=== PATIENT | female | born 1955 | race Caucasian/White ===

== ENCOUNTER 2016-03-17 03:46 | Emergency (ER) | payer MEDICAID ==
[~2016-03-17] VITALS: Ht 165.1 cm; Wt 84.4 kg
--- NOTE | 2016-03-17 04:12 | Emergency Room Report ---
History of Present Illness General Chief Complaint: Upper Respiratory Illness Source: Patient, Medical Record (OZ SRINIVASAN M.D.) Present Illness HPI This is a 60-year-old female coming from residential. She's been complaining of a nonproductive cough for the last 2 weeks. An x-ray done yesterday which show mild atelectasis and possible pneumonia. Was sent here to be evaluated. Patient has no fever or chills. No nausea no vomiting. No chest pain. Nothing made it better. Nothing made it worse. No other complaint. (OZ SRINIVASAN M.D.) Allergies: Coded Allergies: PENICILLINS (Verified Allergy, Unknown, 03/17/16) Patient History Past Medical History: see triage record, old chart reviewed Past Surgical History: other Pertinent Family History: none, other Social History: Denies: smoking Now: No Immunizations: other Reviewed Nursing Documentation: PMH: Agreed, PSxH: Agreed (OZ SRINIVASAN M.D.) Nursing Documentation-PMH Hx Cardiac Problems: Yes - HIGH CHOLESTEROL Hx Hypertension: Yes History Of Psychiatric Problem: Yes - BIPOLAR Hx Seizures: Yes (OZ SRINIVASAN M.D.) Review of Systems Eye: Denies: blurred vision, eye pain ENT: Denies: ear pain, nose congestion, throat swelling Respiratory: Reports: cough, Denies: shortness of breath Cardiovascular: Denies: chest pain, palpitations Gastrointestinal: Denies: abdominal pain, diarrhea, nausea, vomiting Musculoskeletal: Denies: back pain, joint pain Skin: Denies: rash Neurological: Denies: headache, numbness Endocrine: Denies: increased thirst, increased urine Hematologic/Lymphatic: Denies: easy bruising All Other Systems: negative except mentioned in HPI (OZ SRINIVASAN M.D.) Physical Exam Vital Signs Date Time Temp Pulse Resp B/P Pulse Ox O2 Delivery O2 Flow Rate FiO2 03/17/16 03:50 98.1 70 18 163/92 99 Room Air vitals hypertension Sp02 EP Interpretation: reviewed, normal General Appearance: well appearing, no apparent distress, alert Head: normocephalic, atraumatic Eyes: bilateral eye EOMI, bilateral eye PERRL ENT: hearing grossly normal, normal pharynx Neck: full range of motion, supple, no meningismus Respiratory: chest non-tender, lungs clear, normal breath sounds Cardiovascular #1: regular rate, rhythm, no murmur Gastrointestinal: normal bowel sounds, non tender, no mass, no organomegaly, no bruit, non-distended Musculoskeletal: back normal, normal range of motion Neurologic: alert, oriented x3 Psychiatric: mood/affect normal Skin: warm/dry (OZ SRINIVASAN M.D.) Medical Decision Making Diagnostic Impression: Primary Impression: Cough Additional Impressions: Obesity (BMI 30.0-34.9) Renal insufficiency ER Course Patient presents with a cough and abnormal chest x-ray finding. According to the reading from the radiologist, she has atelectasis questionable infiltrate in the left lower lobe. CT scan is still pending. If negative will discharge back to residential. I see no evidence of pneumonia, ACS, PE, dissection to name a few. Lab Results Impression labs unremarkable (OZ SRINIVASAN M.D.) ER Course Received signout from Dr Srinivasan to followup CT Chest, which also does NOT demonstrate significant airspace disease. No PNA. No pleural effusions. I reviewed chart - vitals have been stable. No leukocytosis. Mild cough, likely URI Recommend supportive tx at SNF and PMD followup Dr Payne called after patient was discharged back to SNF with the following incidental findings: T10 compression fx, unknown acuity; and ?pulm nodules that may need followup. I communicated these results to Dr Pino, patient's PMD at 912am (SANJAY DORAN M.D.) EKG Diagnostic Results Rate: normal Rhythm: NSR ST Segments: no acute changes (OZ SRINIVASAN M.D.) Rhythm Strip Diag. Results EP Interpretation: yes Rate: 80 Rhythm: NSR, no PVC's, no ectopy (OZ SRINIVASAN M.D.) Chest X-Ray Diagnostic Results EP Interpretation: Yes Findings: no consolidation, no effusion, no pneumothorax, no acute cardiopulmonary disease Number of Views: 1 (OZ SRINIVASAN M.D.) CT/MRI/US Diagnostic Results CT/MRI/US Diagnostic Results : Imaging Test Ordered: CT chest Impression Read by radiologist as NAD. Atelectasis of left lungs. (OZ SRINIVASAN M.D.) Last Vital Signs Date Time Temp Pulse Resp B/P Pulse Ox O2 Delivery O2 Flow Rate FiO2 03/17/16 03:50 98.1 70 18 163/92 99 Room Air Status: improved (OZ SRINIVASAN M.D.) Status: improved (SANJAY DORAN M.D.) Disposition: [facility] SNF Condition: Stable Referrals: DEBBIE PINO (PCP) Patient Instructions: Upper Respiratory Infection, Adult OZ SRINIVASAN M.D. Mar 17, 2016 04:12 SANJAY DORAN M.D. Mar 17, 2016 06:44
[2016-03-17] MEDS ORDERED: ASPIRIN81 MG ORAL (04:31)
[2016-03-17] MEDS ORDERED: IBUPROFEN600 MG ORAL ×2 (04:31)
[2016-03-17] MEDS ORDERED: PROZAC40 MG ORAL (04:31)
[2016-03-17] MEDS ORDERED: VITAMIN D1000 UNI1 ORAL (04:31)
[2016-03-17] MEDS ORDERED: ABILIFY20 MG ORAL (04:31)
[2016-03-17] MEDS ORDERED: GABAPENTIN100 MG ORAL (04:31)
[2016-03-17] MEDS ORDERED: MULTIVITAMINS1 EAC8 ORAL (04:31)
[2016-03-17] MEDS ORDERED: TAMSULOSIN HCL0.4 MG ORAL (04:31)
[2016-03-17] MEDS ORDERED: CATAPRES0.1 MG ORAL (04:31)
[2016-03-17] MEDS ORDERED: ATORVASTATIN CA10 MG ORAL (04:31)
[2016-03-17] MEDS ORDERED: TRICOR54 MG ORAL (04:31)
[2016-03-17] MEDS ORDERED: BENADRYL25 MG ORAL (04:35)
[2016-03-17] MEDS ORDERED: DIVALPROEX SOD500 M2 PO (04:35)
[2016-03-17] MEDS ORDERED: NITROGLYCERIN0.4 MG SL (04:35)
[2016-03-17] MEDS ORDERED: HYDROCODON-ACE1 EA15 ORAL (04:35)
[2016-03-17] MEDS ORDERED: BACLOFEN10 MG ORAL (04:35)
[2016-03-17 04:39] LABS: LYMPHOCYTES % (AUTO) 39.4 % (20.0-45.0); MEAN CORPUSCULAR HEMOGLOBIN 33.4 PG (27.0-31.0); MEAN CORPUSCULAR HGB CONC 34.3 G/DL (32.0-36.0); MEAN CORPUSCULAR VOLUME 97 FL (80-99); MEAN PLATELET VOLUME 6.7 FL (6.5-10.1); MONOCYTES % (AUTO) 10.5 % (1.0-10.0); NEUTROPHILS % (AUTO) 46.1 % (45.0-75.0); PLATELET COUNT 160 K/UL (150-450); RED BLOOD COUNT 4.38 M/UL (4.20-5.40); RED CELL DISTRIBUTION WIDTH 11.2 % (11.6-14.8)
[2016-03-17] MEDS ORDERED: Acetaminophen 500mg (ES) tab ORAL ONE (04:45)
[2016-03-17 04:58] LABS: ALBUMIN/GLOBULIN RATIO 1.4 (1.0-2.7); CALCIUM 9.6 mg/dL (8.6-10.2); CREATININE 1.5 mg/dL (0.5-0.9); GLOMERULAR FILTRATION RATE 35.2 mL/min (>60); POTASSIUM 4.8 mEQ/L (3.4-4.9); TOTAL PROTEIN 6.5 g/dL (6.6-8.7)
[2016-03-17 05:10] VITALS: BP 165/77
[2016-03-17 05:17] LABS: TROPONIN I < 0.30 ng/mL (<=0.30)
[2016-03-17 06:43] VITALS: BP 169/74
[2016-03-17 08:15] VITALS: BP 147/94
[2016-03-17 08:20] VITALS: BP 147/94
--- NOTE | 2016-03-17 09:24 | Diagnostic Imaging Report ---
ndication: SOB, chest discomfort Technique: IV administration nonionic contrast. Spiral acquisitions obtained from the lung bases to the lung apices. Multiplanar and 3-D reconstructions were generated. Total dose length product 1269 mGycm. CTDIvol(s) 12, 12, 38 mGy Comparison: None Findings: Pulmonary arterial opacification is adequate although not optimal. No filling defects or other findings to suggest acute pulmonary embolus are demonstrated. The thoracic aorta is well opacified, and there is no evidence of thoracic aortic aneurysm or dissection. No pulmonary arterial dilatation. There is no evidence of right ventricular dilatation. There is mild left ventricular muscular hypertrophy, and the heart is mildly enlarged. Right lung is clear except for a few scattered areas of focal pleural thickening and some dependent atelectasis within the costophrenic angle. Is a 2 mm noncalcified peripheral nodule in the right middle lobe, image 48 series 8, which measures 2 mm diameter. The left lung demonstrates some scarring or atelectasis in the posterior upper lobe as well as inferiorly. Some focal in the left costophrenic sulcus, there is a pleural-based opacity which likely represents some scarring or atelectasis. There is also some linear scarring or atelectasis. There is a small dural based noncalcified nodule in the anterior left lower lobe adjacent to the major fissure which measures 3 mm in, image 45 of series 8. There is also a 4 mm nodule medially in the superior segment of the left lower lobe, image 34 of series 8. No infiltrates or masses. There is a small amount of pericardial thickening or fluid anteriorly. No mediastinal or hilar mass or adenopathy. Opacities to the right of the trachea may reflect leelee calcifications or reflux contrast in the azygos vein. The visualized portions of the thyroid thyroid demonstrates multiple subcentimeter low-attenuation nodules. No axillary or chest wall mass or adenopathy the esophagus is unremarkable. Graft the included upper abdominal anatomy is unremarkable There is a compression fracture deformity of the T10 vertebral body, resulting in approximately 40% height loss anteriorly. Impression: No findings to suggest acute pulmonary embolus Scattered parenchymal opacities, as described, most likely representing areas of scarring and/or atelectasis Cardiomegaly with mild left ventricular muscular hypertrophy Small anterior wall pericardial effusion versus fluid Bilateral subcentimeter thyroid nodules. No further followup necessary The above findings are in agreement with the preliminary interpretation provided overnight by [facility] teleradiology service Scattered tiny nodular parenchymal opacities. If there is no significant smoking history or other risk factors for lung carcinoma, no further followup is necessary. If there is significant smoking history, then short interval followup in 6 months to one year is recommended Age indeterminate T10 compression fracture deformity. Consider MRI for better characterization if this is considered clinically relevant The above 2 findings were not described on the preliminary report, but were discussed by phone with Dr. Aponte in the emergency room at time of interpretation. These were also reported to [facility] via their website The CT scanner at [facility] is accredited by the [employer] and the scans are performed using protocols designed to limit radiation exposure to as low as reasonably achievable to attain images of sufficient resolution adequate for diagnostic evaluation.
--- NOTE | 2016-03-18 10:03 | Cardiology Report ---
APPROVED REPORT EKG Measurement Heart [id number] AL [id number] Normal sinus rhythm Normal ECG
--- NOTE | 2016-03-24 12:58 | Diagnostic Imaging Report ---
Indication: SOB Technique: One view of the chest Comparison: none Findings: The left lateral hemidiaphragm is obscured. Subsequent chest CT shows that this is due to prominent pericardial fat and not due to pleural fluid. The lungs and pleural spaces are otherwise clear. Heart size is borderline enlarged. Impression: No definite acute process-see above
== END 2016-03-17 08:25 ==
LOC: EDBD 03:46 → EMR 04:09
DX: R05 Cough (principal); N28.9 Disorder of kidney and ureter, unspecified; E66.9 Obesity, unspecified; Z68.34 Body mass index [BMI] 34.0-34.9, adult; Z88.0 Allergy status to penicillin; E78.00 Pure hypercholesterolemia, unspecified; I10 Essential (primary) hypertension; Z86.59 Personal history of other mental and behavioral disorders
CPT/HCPCS: 36415; 71010; 71275; 80053; 83605; 83880; 84484; 85025; 87040; 93005; 99284; Q9967

== ENCOUNTER 2017-10-27 23:43 | Emergency (ER) | payer MEDICAID ==
[~2017-10-27] VITALS: Ht 165.1 cm; Wt 82.1 kg
[~2017-10-27 23:43] MED LIST: ABILIFY20 MG ORAL; ASPIRIN81 MG ORAL; ATORVASTATIN CA10 MG ORAL; BACLOFEN10 MG ORAL; BENADRYL25 MG ORAL; CATAPRES0.1 MG ORAL; DIVALPROEX SOD500 M2 PO; GABAPENTIN100 MG ORAL; HYDROCODON-ACE1 EA15 ORAL; IBUPROFEN600 MG ORAL; MULTIVITAMINS1 EAC8 ORAL; NITROGLYCERIN0.4 MG SL; PROZAC40 MG ORAL; TAMSULOSIN HCL0.4 MG ORAL; TRICOR54 MG ORAL; VITAMIN D1000 UNI1 ORAL
--- NOTE | 2017-10-28 | Emergency Room Report ---
History of Present Illness General Chief Complaint: General Complaint Source: Patient, Medical Record, EMS Present Illness HPI This is a 62-year-old female with multiple medical problem. She has a history of CVA with left-sided weakness. She lives in a detention. She was sent in with chief complaint of increased agitation and anxiety for last few days. Patient denies any complaint. She said she had some nausea and vomiting prior to arrival. No fever chills. No abdominal pain. No urinary complaint. Denies feeling anxious. Allergies: Coded Allergies: PENICILLINS (Verified Allergy, Unknown, 03/17/16) Patient History Past Medical History: see triage record, old chart reviewed Past Surgical History: other Pertinent Family History: none Social History: Denies: smoking Now: No Immunizations: other Reviewed Nursing Documentation: PMH: Agreed; PSxH: Agreed Nursing Documentation-PMH Hx Cardiac Problems: Yes - HIGH CHOLESTEROL Hx Hypertension: Yes Hx COPD: Yes Hx Gastrointestinal Problems: Yes - GERD History Of Psychiatric Problem: Yes - MAJOR DEPRESSIVE DISORDER,BIPOLAR Hx Seizures: Yes Review of Systems Eye: Denies: eye pain, blurred vision ENT: Denies: ear pain, nose congestion, throat swelling Respiratory: Denies: cough, shortness of breath Cardiovascular: Denies: chest pain, palpitations Gastrointestinal: Denies: abdominal pain, diarrhea, nausea, vomiting Musculoskeletal: Denies: back pain, joint pain Skin: Denies: rash Neurological: Denies: headache, numbness Endocrine: Denies: increased thirst, increased urine Hematologic/Lymphatic: Denies: easy bruising All Other Systems: negative except mentioned in HPI Physical Exam Vital Signs Date Time Temp Pulse Resp B/P (MAP) Pulse Ox O2 Delivery O2 Flow Rate FiO2 10/27/17 23:44 98.0 66 18 132/84 93 Room Air 98.1 vitals normal Sp02 EP Interpretation: reviewed, normal General Appearance: well appearing, no apparent distress, alert Head: normocephalic, atraumatic Eyes: bilateral eye PERRL, bilateral eye EOMI ENT: hearing grossly normal, normal pharynx Neck: full range of motion, supple, no meningismus Respiratory: chest non-tender, lungs clear, normal breath sounds Cardiovascular #1: regular rate, rhythm, no murmur Gastrointestinal: normal bowel sounds, non tender, no mass, no organomegaly, no bruit, non-distended Musculoskeletal: back normal Neurologic: alert, oriented x3, other - Left-sided weakness Psychiatric: mood/affect normal Skin: warm/dry Medical Decision Making Diagnostic Impression: Primary Impression: UTI (urinary tract infection) Qualified Codes: N30.00 - Acute cystitis without hematuria Additional Impression: VONNIE (acute kidney injury) ER Course Patient presents with agitation at the detention. She is calm here. May be secondary to sundowning secondary to infection. No evidence of polynephritis. No evidence of any sepsis. Antibiotics given. Creatinine bumped since 2014. Unknown baseline in between. We'll discharge home. Lab Results Impression labs with elevated creatinine Last Vital Signs Date Time Temp Pulse Resp B/P (MAP) Pulse Ox O2 Delivery O2 Flow Rate FiO2 10/27/17 23:44 98.0 66 18 132/84 93 Room Air 98.1 Status: improved Disposition: XFER SNF Condition: Stable Scripts Cephalexin* (KEFLEX*) 500 Mg Capsule 500 MG ORAL TID, #21 CAP Prov: OZ SRINIVASAN M.D. 10/28/17 Additional Instructions: Follow-up with your doctor in 7 days. Return if symptom worsen. OZ SRINIVASAN M.D. Oct 28, 2017 00:00
[2017-10-28 00:10] VITALS: BP 132/84
[2017-10-28 00:59] LABS: BASOPHILS % (AUTO) 0.9 % (0.0-2.0); EOSINOPHILS % (AUTO) 2.3 % (0.0-3.0); HEMATOCRIT 37.1 % (37.0-47.0); HEMOGLOBIN 12.4 G/DL (12.0-16.0); LYMPHOCYTES % (AUTO) 28.9 % (20.0-45.0); MEAN CORPUSCULAR VOLUME 98 FL (80-99); MONOCYTES % (AUTO) 11.1 % (1.0-10.0); NEUTROPHILS % (AUTO) 56.9 % (45.0-75.0); PLATELET COUNT 288 K/UL (150-450); RED BLOOD COUNT 3.78 M/UL (4.20-5.40); RED CELL DISTRIBUTION WIDTH 13.2 % (11.6-14.8); WHITE BLOOD COUNT 6.4 K/UL (4.8-10.8)
[2017-10-28 01:00] LABS: APPEARANCE,URINE SLIGHTLY CLOUDY; BILIRUBIN, URINE NEGATIVE (NEGATIVE); GLUCOSE, URINE (UA) NEGATIVE (NEGATIVE); KETONES,URINE NEGATIVE (NEGATIVE); LEUKOCYTE ESTERASE ,URINE 2+ (NEGATIVE); NITRITE,URINE NEGATIVE (NEGATIVE); PH,URINE 6 (4.5-8.0); PROTEIN,URINE 4+ (NEGATIVE); UROBILINOGEN,URINE NORMAL MG/DL (0.0-1.0)
[2017-10-28 01:03] LABS: COLOR,URINE YELLOW
[2017-10-28 01:23] LABS: ANION GAP 8 mmol/L (5-15); BLOOD UREA NITROGEN 67 mg/dL (7-18); CALCIUM 9.4 MG/DL (8.5-10.1); CARBON DIOXIDE 32 MMOL/L (21-32); CHLORIDE 103 MMOL/L (98-107); CREATININE 2.4 MG/DL (0.55-1.30); POTASSIUM 4.8 MMOL/L (3.5-5.1); SODIUM 143 MMOL/L (136-145)
[2017-10-28 01:29] LABS: ALANINE AMINOTRANSFERASE 21 U/L (12-78); ALBUMIN 3.6 G/DL (3.4-5.0); ALBUMIN/GLOBULIN RATIO 0.8 (1.0-2.7); ALKALINE PHOSPHATASE 64 U/L (46-116); ASPARTATE AMINO TRANSFERASE 14 U/L (15-37); BILIRUBIN,TOTAL 0.4 MG/DL (0.2-1.0)
[2017-10-28 01:30] VITALS: BP 122/44
[2017-10-28] MEDS ORDERED: cefTRIAXone 1 GM in NS 55 ML IVPB ONE (01:30)
[2017-10-28] MEDS ORDERED: CEPHALEXIN500 MG ORAL (01:33)
[2017-10-28 02:30] VITALS: BP 139/51
[2017-10-28] MEDS ORDERED: [UNRECOGNIZED DRUG - OTHER] MC (18:38)
[2017-10-28] MEDS ORDERED: VITAMIN C500 M1 ORAL (18:38)
[2017-10-28] MEDS ORDERED: HYDRALAZINE HCL25 M2 PO (18:38)
[2017-10-28] MEDS ORDERED: FUROSEMIDE40 MG ORAL (18:38)
[2017-10-28] MEDS ORDERED: LIPITOR80 MG ORAL (18:38)
[2017-10-28] MEDS ORDERED: NEURONTIN300 MG ORAL (18:38)
[2017-10-28] MEDS ORDERED: ASPIR 8181 MG ORAL (18:38)
== END 2017-10-28 02:30 ==
LOC: EDBD 23:43 → EMR 23:59
DX: N17.9 Acute kidney failure, unspecified (principal); N39.0 Urinary tract infection, site not specified; E78.00 Pure hypercholesterolemia, unspecified; I10 Essential (primary) hypertension; J44.9 Chronic obstructive pulmonary disease, unspecified; K21.9 Gastro-esophageal reflux disease without esophagitis; F31.9 Bipolar disorder, unspecified
CPT/HCPCS: 36415; 80053; 81001; 85025; 87086; 96361; 96365; 99284; J0696

== ENCOUNTER 2017-10-28 18:38 | Emergency (ER) | payer MEDICAID ==
[~2017-10-28] VITALS: Ht 165.1 cm; Wt 81.6 kg
[~2017-10-28 18:38] MED LIST changes: +ASPIR 8181 MG ORAL; +CEPHALEXIN500 MG ORAL; +FUROSEMIDE40 MG ORAL; +HYDRALAZINE HCL25 M2 PO; +LIPITOR80 MG ORAL; +NEURONTIN300 MG ORAL; +VITAMIN C500 M1 ORAL; +[UNRECOGNIZED DRUG - OTHER] MC
[2017-10-28 19:00] VITALS: BP 128/48
[2017-10-28 19:26] LABS: ANION GAP 5 mmol/L (5-15); BLOOD UREA NITROGEN 56 mg/dL (7-18); CALCIUM 9.6 MG/DL (8.5-10.1); CARBON DIOXIDE 31 MMOL/L (21-32); CHLORIDE 105 MMOL/L (98-107); CREATININE 2.3 MG/DL (0.55-1.30); POTASSIUM 4.6 MMOL/L (3.5-5.1); SODIUM 141 MMOL/L (136-145)
[2017-10-28 19:35] LABS: BASOPHILS % (AUTO) 0.9 % (0.0-2.0); HEMATOCRIT 32.2 % (37.0-47.0); LYMPHOCYTES % (AUTO) 24.2 % (20.0-45.0); MEAN CORPUSCULAR VOLUME 99 FL (80-99); MONOCYTES % (AUTO) 10.5 % (1.0-10.0); NEUTROPHILS % (AUTO) 62.4 % (45.0-75.0); PLATELET COUNT 285 K/UL (150-450); RED BLOOD COUNT 3.27 M/UL (4.20-5.40); RED CELL DISTRIBUTION WIDTH 13.4 % (11.6-14.8); WHITE BLOOD COUNT 5.7 K/UL (4.8-10.8)
[2017-10-28 19:36] LABS: ALANINE AMINOTRANSFERASE 20 U/L (12-78); ALBUMIN 3.3 G/DL (3.4-5.0); ALBUMIN/GLOBULIN RATIO 0.8 (1.0-2.7); ALKALINE PHOSPHATASE 60 U/L (46-116); ASPARTATE AMINO TRANSFERASE 12 U/L (15-37); BILIRUBIN,TOTAL 0.3 MG/DL (0.2-1.0)
--- NOTE | 2017-10-28 19:47 | Emergency Room Report ---
History of Present Illness General Chief Complaint: General Complaint Present Illness HPI Ms. May is a 62-year-old female with history of COPD, chronic kidney disease, dyslipidemia, GERD, bipolar disorder, kidney cancer, peptic ulcer disease presents with cloudy urine in chest congestion. Patient complained of back pain. Reported lethargy. Patient gives limited history. Patient is a resident at [facility] Allergies: Coded Allergies: LEVOFLOXACIN (Unverified Allergy, Unknown, 10/28/17) MEROPENEM (Unverified Allergy, Unknown, 10/28/17) PENICILLINS (Verified Allergy, Unknown, 03/17/16) Patient History Past Medical History: see triage record, old chart reviewed Now: No Reviewed Nursing Documentation: PMH: Agreed; PSxH: Agreed Nursing Documentation-PMH Past Medical History: No History, Except For Hx Hypertension: Yes Hx COPD: Yes Hx Gastrointestinal Problems: Yes - gerd Hx Cerebrovascular Accident: Yes Hx Seizures: Yes Review of Systems Constitutional: Reports: malaise; Denies: fever Gastrointestinal: Denies: abdominal pain All Other Systems: limited - patient provides limited information Physical Exam Vital Signs Date Time Temp Pulse Resp B/P (MAP) Pulse Ox O2 Delivery O2 Flow Rate FiO2 10/28/17 18:30 98.0 68 14 114/62 94 Room Air 98.1 Sp02 EP Interpretation: reviewed, normal General Appearance: non-toxic, moderate distress - +wob abdominal retraction, lethargic, Chronically Ill Head: normocephalic, atraumatic Eyes: bilateral eye normal inspection ENT: hearing grossly normal, no angioedema, normal voice, dry mucus membranes Neck: full range of motion, supple/symm/no masses Respiratory: respiratory distress, decreased breath sounds, accessory muscle use Cardiovascular #1: regular rate, rhythm, no murmur, no rub Gastrointestinal: normal bowel sounds, non tender, soft, non-distended Musculoskeletal: normal range of motion Neurologic: responsive, speech normal Psychiatric: depressed affect Skin: normal color, well hydrated Medical Decision Making Diagnostic Impression: Primary Impression: UTI (urinary tract infection) Additional Impressions: COPD (chronic obstructive pulmonary disease) CKD (chronic kidney disease) HCAP (healthcare-associated pneumonia) ER Course Ms. May presents from SNF with reported UTI and congestion. Does have work of breathing and diminished air movement. However patient refused blood gas and breathing treatment. Admitted in fair condition to Dr. Armstrong's service. IV abx and steroids initated in the ED Laboratory Tests Test 10/28/17 19:00 10/28/17 19:40 White Blood Count 5.7 K/UL (4.8-10.8) Red Blood Count 3.27 M/UL (4.20-5.40) L Hemoglobin 11.0 G/DL (12.0-16.0) L Hematocrit 32.2 % (37.0-47.0) L Mean Corpuscular Volume 99 FL (80-99) Mean Corpuscular Hemoglobin 33.8 PG (27.0-31.0) H Mean Corpuscular Hemoglobin Concent 34.3 G/DL (32.0-36.0) Red Cell Distribution Width 13.4 % (11.6-14.8) Platelet Count 285 K/UL (150-450) Mean Platelet Volume 5.7 FL (6.5-10.1) L Neutrophils (%) (Auto) 62.4 % (45.0-75.0) Lymphocytes (%) (Auto) 24.2 % (20.0-45.0) Monocytes (%) (Auto) 10.5 % (1.0-10.0) H Eosinophils (%) (Auto) 2.0 % (0.0-3.0) Basophils (%) (Auto) 0.9 % (0.0-2.0) Sodium Level 141 MMOL/L (136-145) Potassium Level 4.6 MMOL/L (3.5-5.1) Chloride Level 105 MMOL/L (98-107) Carbon Dioxide Level 31 MMOL/L (21-32) Anion Gap 5 mmol/L (5-15) Blood Urea Nitrogen 56 mg/dL (7-18) H Creatinine 2.3 MG/DL (0.55-1.30) H Estimat Glomerular Filtration Rate 21.4 mL/min (>60) Glucose Level 138 MG/DL (74-106) H Lactic Acid Level 1.20 mmol/L (0.4-2.0) Calcium Level 9.6 MG/DL (8.5-10.1) Total Bilirubin 0.3 MG/DL (0.2-1.0) Aspartate Amino Transf (AST/SGOT) 12 U/L (15-37) L Alanine Aminotransferase (ALT/SGPT) 20 U/L (12-78) Alkaline Phosphatase 60 U/L (46-116) Pro-B-Type Natriuretic Peptide 2526 pg/mL (0-125) H Total Protein 7.5 G/DL (6.4-8.2) Albumin 3.3 G/DL (3.4-5.0) L Globulin 4.2 g/dL Albumin/Globulin Ratio 0.8 (1.0-2.7) L Urine Color Pale yellow Urine Appearance Clear Urine pH 5 (4.5-8.0) Urine Specific [place] 1.010 (1.005-1.035) Urine Protein 3+ (NEGATIVE) H Urine Glucose (UA) Negative (NEGATIVE) Urine Ketones Negative (NEGATIVE) Urine Blood 2+ (NEGATIVE) H Urine Nitrite Negative (NEGATIVE) Urine Bilirubin Negative (NEGATIVE) Urine Urobilinogen Normal MG/DL (0.0-1.0) Urine Leukocyte Esterase 3+ (NEGATIVE) H Urine RBC 5-10 /HPF (0 - 2) H Urine WBC 15-20 /HPF (0 - 2) H Urine Squamous Epithelial Cells Moderate /LPF (NONE/OCC) H Urine Amorphous Sediment Few /LPF (NONE) H Urine Bacteria Many /HPF (NONE) H Lab Results Impression CKD UTI EKG Diagnostic Results EKG Time: 20:20 Rate: normal Rhythm: NSR ST Segments: no acute changes Other Impression normal sinus rhythm normal rate normal axis normal intervals no ST elevation no ST-T signs of ischemiarate 70 beats a minute Last Vital Signs Date Time Temp Pulse Resp B/P (MAP) Pulse Ox O2 Delivery O2 Flow Rate FiO2 10/28/17 19:00 66 25 128/48 97 Room Air 10/28/17 18:30 98.0 98.1 Referrals: NOT CHOSEN IPA/,REFERRING (PCP) Lara Casey MD Oct 28, 2017 19:47
[2017-10-28 19:58] LABS: APPEARANCE,URINE CLEAR; BILIRUBIN, URINE NEGATIVE (NEGATIVE); COLOR,URINE PALE YELLOW; GLUCOSE, URINE (UA) NEGATIVE (NEGATIVE); KETONES,URINE NEGATIVE (NEGATIVE); LEUKOCYTE ESTERASE ,URINE 3+ (NEGATIVE); NITRITE,URINE NEGATIVE (NEGATIVE); PH,URINE 5 (4.5-8.0); PROTEIN,URINE 3+ (NEGATIVE); UROBILINOGEN,URINE NORMAL MG/DL (0.0-1.0)
[2017-10-28] MEDS ORDERED: Albuterol/Ipratropium 3ml neb HHN ONE (20:00)
[2017-10-28 20:48] VITALS: BP 125/64
[2017-10-28] MEDS ORDERED: Azithromycin 500 MG in D5W 275 ML IVPB ONE (21:15)
[2017-10-28] MEDS ORDERED: Aztreonam Inj 2 GM in NS 110 ML IV SCH (22:00)
[2017-10-28 22:34] VITALS: BP 123/65
[2017-10-28 22:40] VITALS: BP 123/65
--- NOTE | 2017-10-31 14:50 | Cardiology Report ---
APPROVED REPORT EKG Measurement Heart [id number] Normal sinus rhythm Normal ECG
== END 2017-10-28 22:40 | disposition short-term general hospital (02) ==
LOC: EDBD 18:38 → EMR 19:02
DX: N39.0 Urinary tract infection, site not specified (principal); I12.9 Hypertensive chronic kidney disease with stage 1 through stage 4 chronic kidney disease, or unspecified chronic kidney disease; N18.9 Chronic kidney disease, unspecified; J44.9 Chronic obstructive pulmonary disease, unspecified; J18.9 Pneumonia, unspecified organism; Y95 Nosocomial condition; K21.9 Gastro-esophageal reflux disease without esophagitis; E78.5 Hyperlipidemia, unspecified; Z85.038 Personal history of other malignant neoplasm of large intestine; Z87.11 Personal history of peptic ulcer disease; F31.9 Bipolar disorder, unspecified
CPT/HCPCS: 36415; 71045; 80053; 81003; 83605; 83880; 85025; 87040; 87081; 87086; 87181; 93005; 96365; 99284; J0456; J7620

== ENCOUNTER 2017-11-06 12:40 | Inpatient (IN) | payer MEDICAID ==
[~2017-11-06] VITALS: Ht 162.6 cm; Wt 95.4 kg
[2017-11-06 12:41] VITALS: BP 137/67
[2017-11-06] MEDS ORDERED: MAG-OXIDE400 M1 PO (12:58)
[2017-11-06] MEDS ORDERED: METOPROLOL TART25 MG ORAL (12:58)
[2017-11-06] MEDS ORDERED: ACETAMINOPHEN325 M1 ORAL (13:00)
[2017-11-06] MEDS ORDERED: cefTRIAXone 1 GM in NS 55 ML IVPB ONE (13:00)
[2017-11-06 13:31] LABS: BASOPHILS % (AUTO) 1.2 % (0.0-2.0); EOSINOPHILS % (AUTO) 0.5 % (0.0-3.0); HEMATOCRIT 39.3 % (37.0-47.0); HEMOGLOBIN 12.6 G/DL (12.0-16.0); LYMPHOCYTES % (AUTO) 23.2 % (20.0-45.0); MEAN CORPUSCULAR VOLUME 102 FL (80-99); MONOCYTES % (AUTO) 8.4 % (1.0-10.0); NEUTROPHILS % (AUTO) 66.7 % (45.0-75.0); PLATELET COUNT 211 K/UL (150-450); RED BLOOD COUNT 3.84 M/UL (4.20-5.40); RED CELL DISTRIBUTION WIDTH 13.1 % (11.6-14.8); WHITE BLOOD COUNT 6.4 K/UL (4.8-10.8)
[2017-11-06 14:04] LABS: APPEARANCE,URINE SLIGHTLY CLOUDY; BILIRUBIN, URINE NEGATIVE (NEGATIVE); COLOR,URINE PALE YELLOW; GLUCOSE, URINE (UA) NEGATIVE (NEGATIVE); KETONES,URINE NEGATIVE (NEGATIVE); LEUKOCYTE ESTERASE ,URINE NEGATIVE (NEGATIVE); NITRITE,URINE NEGATIVE (NEGATIVE); PH,URINE 5 (4.5-8.0); PROTEIN,URINE 3+ (NEGATIVE); UROBILINOGEN,URINE NORMAL MG/DL (0.0-1.0)
--- NOTE | 2017-11-06 14:08 | Diagnostic Imaging Report ---
Indication: Altered mental status Technique: XRAY Chest 1v Comparison: 10/28/2017 Findings: Stable cardiomegaly. There is pulmonary vascular congestion/mild interstitial edema. There is unchanged opacity at the left lateral base with blunting of the left costophrenic sulcus. There is no pneumothorax. There is unchanged mild compression deformity of a lower thoracic vertebral body. Impression: Cardiomegaly with pulmonary vascular congestion/mild interstitial edema. Opacities at the left peripheral base with blunting of the left costophrenic sulcus. This was seen on the prior exams and may be chronic in nature. Correlate clinically to exclude the possibility of a superimposed pneumonia.
[2017-11-06 14:51] VITALS: BP 130/49
--- NOTE | 2017-11-06 15:35 | Emergency Room Report ---
History of Present Illness General Chief Complaint: Altered Level of Consciousness Source: Medical Record, EMS (Anamaria Ingram Gisele CHERY) Source: Medical Record (LENORE SHORE M.D) Present Illness HPI This patient presents from a retirement facility. She has a history of renal failure, hypertension, COPD, CVA with right-sided hemiplegia. History is per medical record and EMS. She presents for altered mental status and an episode of vomiting. There is no other history available. ([facility]) Allergies: Coded Allergies: LEVOFLOXACIN (Unverified Allergy, Unknown, 10/28/17) MEROPENEM (Unverified Allergy, Unknown, 10/28/17) PENICILLINS (Verified Allergy, Unknown, 03/17/16) Patient History Past Medical History: see triage record, HTN, MS, CAD, COPD, GERD, CVA/TIA, psych hx, renal disease Social History: Denies: smoking, alcohol use, drug use Reviewed Nursing Documentation: PMH: Agreed; PSxH: Agreed ([facility]) Past Medical History: see triage record Reviewed Nursing Documentation: PMH: Agreed; PSxH: Agreed (LENORE SHORE M.D) Nursing Documentation-PMH Past Medical History: No History, Except For Hx Hypertension: Yes Hx COPD: Yes Hx Gastrointestinal Problems: Yes - gerd Hx Cerebrovascular Accident: Yes Hx Seizures: Yes ([facility]) Review of Systems All Other Systems: limited [facility]) All Other Systems: limited - patient with AMS (LENORE SHORE M.D) Physical Exam Vital Signs Date Time Temp Pulse Resp B/P (MAP) Pulse Ox O2 Delivery O2 Flow Rate FiO2 11/06/17 12:34 96.4 88 18 126/64 98 Nasal Cannula 2.0 96.4 Sp02 EP Interpretation: reviewed, normal General Appearance: no apparent distress, GCS 15, non-toxic, Chronically Ill Head: normocephalic, atraumatic ENT: hearing grossly normal, normal pharynx, no angioedema Neck: full range of motion, supple/symm/no masses Respiratory: chest non-tender, no respiratory distress, no retraction, no accessory muscle use, rhonchi Cardiovascular #1: regular rate, rhythm, no edema Gastrointestinal: normal bowel sounds, non tender, soft, non-distended, no guarding, no rebound Rectal: deferred Musculoskeletal: normal range of motion Neurologic: grossly normal Psychiatric: mood/affect normal, no suicidal/homicidal ideation Skin: normal color, no rash, warm/dry, well hydrated (Anamaria Ingram DO) Procedures Critical Care Time Critical Care Time Insert 30 minutes of critical care time excluding all procedures for need for emergent interventions given patient's life threatening electrolyte disturbance with hyperkalemia and EKG changes. (LENORE SHORE Medical Decision Making Diagnostic Impression: Primary Impression: Altered mental status Additional Impressions: Gastroenteritis Hyperkalemia Renal failure ER Course This patient presented with altered mental status and episode of vomiting. The patient is awaiting head CT and chemistry panel. I plan on admission to Dr. Vance Colunga for altered mental status and vomiting. The patient is turned over to Dr. Shore. Laboratory Tests Test 11/06/17 13:15 11/06/17 13:35 11/06/17 15:10 White Blood Count 6.4 K/UL (4.8-10.8) Red Blood Count 3.84 M/UL (4.20-5.40) L Hemoglobin 12.6 G/DL (12.0-16.0) Hematocrit 39.3 % (37.0-47.0) Mean Corpuscular Volume 102 FL (80-99) H Mean Corpuscular Hemoglobin 32.7 PG (27.0-31.0) H Mean Corpuscular Hemoglobin Concent 31.9 G/DL (32.0-36.0) L Red Cell Distribution Width 13.1 % (11.6-14.8) Platelet Count 211 K/UL (150-450) Mean Platelet Volume 6.5 FL (6.5-10.1) Neutrophils (%) (Auto) 66.7 % (45.0-75.0) Lymphocytes (%) (Auto) 23.2 % (20.0-45.0) Monocytes (%) (Auto) 8.4 % (1.0-10.0) Eosinophils (%) (Auto) 0.5 % (0.0-3.0) Basophils (%) (Auto) 1.2 % (0.0-2.0) Lactic Acid Level < 0.30 mmol/L (0.4-2.0) L Troponin I 0.013 ng/mL (0.000-0.056) Urine Color Pale yellow Urine Appearance Slightly cloudy Urine pH 5 (4.5-8.0) Urine Specific [place] 1.025 (1.005-1.035) Urine Protein 3+ (NEGATIVE) H Urine Glucose (UA) Negative (NEGATIVE) Urine Ketones Negative (NEGATIVE) Urine Blood Negative (NEGATIVE) Urine Nitrite Negative (NEGATIVE) Urine Bilirubin Negative (NEGATIVE) Urine Urobilinogen Normal MG/DL (0.0-1.0) Urine Leukocyte Esterase Negative (NEGATIVE) Urine RBC 0-2 /HPF (0 - 2) Urine WBC 0-2 /HPF (0 - 2) Urine Squamous Epithelial Cells Moderate /LPF (NONE/OCC) H Urine Amorphous Sediment Many /LPF (NONE) H Urine Bacteria Few /HPF (NONE) Sodium Level Pending Potassium Level Pending Chloride Level Pending Carbon Dioxide Level Pending Blood Urea Nitrogen Pending Creatinine Pending Estimate Glomerular Filtration Rate Pending Glucose Level Pending Calcium Level Pending Total Bilirubin Pending Aspartate Amino Transferase (AST) Pending Alanine Aminotransferase (ALT) Pending Alkaline Phosphatase Pending Total Creatine Kinase Pending Creatine Kinase MB Pending Total Protein Pending Albumin Pending Globulin Pending (Anamaria Ingram DO) ER Course Upon my evaluation after taking sign out for this patient awaiting CT head, patient's potassium was reported to be elevated above 7 by the lab, no hemolysis per their report to us, EKG reported at 1301, reveals peak T waves diffusely, she was given calcium gluconate, Kayexalate, sodium bicarbonate, insulin, dextrose, IV fluids. Her creatinine is up from 2.[address] head with no acute disease, Dr. Vance Armstrong agreed to admit. (LENORE SHORE M.D) EKG Diagnostic Results Rate: normal Rhythm: NSR ST Segments: no acute changes (Anamaria Ingram DO) EKG Time: 13:01 EP Interpretation: Normal sinus rhythm, no ST-T segment changes, no T-wave inversions, but pos Rate: normal Rhythm: NSR ST Segments: no acute changes (LENORE SHORE M.D) Rhythm Strip Diag. Results EP Interpretation: yes Rate: 70's Rhythm: NSR, no PVC's, no ectopy (Anamaria Ingram DO) Rhythm Strip Time: 16:05 EP Interpretation: yes Rate: 78 Rhythm: NSR, no PVC's, no ectopy, other - Peaked T waves (LENORE SHORE Chest X-Ray Diagnostic Results Chest X-Ray Diagnostic Results : Chest X-Ray Ordered: Yes # of Views/Limited/Complete: 1 View Indication: Other EP Interpretation: No Interpretation: other - See below Impression: Other - Impression: Cardiomegaly with pulmonary vascular congestion/mild interstitial edema. Electronically Signed by: Crystal (Anamaria Ingram DO) CT/MRI/US Diagnostic Results CT/MRI/US Diagnostic Results : Imaging Test Ordered: ct head Impression no acute disease (LENORE SHORE M.D) Last Vital Signs Date Time Temp Pulse Resp B/P (MAP) Pulse Ox O2 Delivery O2 Flow Rate FiO2 11/06/17 14:51 97.8 74 12 130/49 98 Nasal Cannula 3.0 97.8 (Anamaria Ingram DO) Disposition: ADMITTED INPATIENT Condition: Critical Referrals: Vance Armstrong DO (PCP) Anamaria Ingram DO Nov 06, 2017 15:35 LENORE SHORE M.D Nov 06, 2017 16:06
[2017-11-06 15:47] LABS: ALANINE AMINOTRANSFERASE 30 U/L (12-78); ALBUMIN 3.7 G/DL (3.4-5.0); ALBUMIN/GLOBULIN RATIO 0.9 (1.0-2.7); ALKALINE PHOSPHATASE 79 U/L (46-116); ANION GAP 6 mmol/L (5-15); ASPARTATE AMINO TRANSFERASE 14 U/L (15-37); BILIRUBIN,TOTAL 0.2 MG/DL (0.2-1.0); BLOOD UREA NITROGEN 63 mg/dL (7-18); CALCIUM 9.4 MG/DL (8.5-10.1); CARBON DIOXIDE 27 MMOL/L (21-32); CHLORIDE 106 MMOL/L (98-107); CKMB 0.6 NG/ML (0.0-3.6); CREATINE KINASE 36 U/L (26-308); CREATININE 3.1 MG/DL (0.55-1.30); SODIUM 139 MMOL/L (136-145)
[2017-11-06 15:50] LABS: POTASSIUM 7.2 MMOL/L (3.5-5.1)
[2017-11-06] MEDS ORDERED: Sodium Polystyrene Sulfonate Enema RECTAL ONE (16:00)
[2017-11-06] MEDS ORDERED: Calcium Gluconate 1gm/10ml vial IVP ONE (16:00)
[2017-11-06] MEDS ORDERED: Sodium Bicarbonate 50ml Carp IV ONE (16:00)
[2017-11-06] MEDS ORDERED: Insulin Human Regular 100units/ml 3ml IV ONE (16:00)
[2017-11-06] MEDS ORDERED: Lidocaine 1% Plain 30 ml INJ ONE (16:15)
[2017-11-06] MEDS ORDERED: Heparin 2000 units/Ns 1000ml INJ ONE (16:15)
--- NOTE | 2017-11-06 16:24 | Diagnostic Imaging Report ---
Indication: Altered mental status Technique: Continuous helical CT scanning of the head was performed utilizing automated exposure control without intravenous contrast material. Axial and coronal reconstructions were obtained. Comparison: None CT dose: Total DLP 1386.59 mGycm; CTDI vol 70.38 mGy Findings: There is no acute intracranial hemorrhage, mass effect or midline shift. There is encephalomalacia involving the right occipital and to less extent posterior parietal and temporal lobes. Low-attenuation is also noted within the right frontal lobe. These findings are likely sequela of remote ischemia. There are atherosclerotic vascular calcifications. The ventricles, cisterns and sulci are prominent consistent with atrophy. Visualized mastoid air cells and paranasal sinuses are unremarkable. No focal lesions of the bony calvarium or soft tissues of the scalp are seen. IMPRESSION: No evidence of acute intracranial hemorrhage, mass effect or midline shift. Large remote infarct centered in the right occipital lobe/right [employer]CH[employer] territory. Low-attenuation in the white matter of the right frontal lobe also likely related to sequela of remote ischemia although possibility of acute on chronic ischemia is not entirely excluded. Correlate clinically. MRI can be obtained for more sensitive evaluation as clinically indicated. The CT scanner at [facility] is accredited by the [employer] and the scans are performed using protocols designed to limit radiation exposure to as low as reasonably achievable to attain images of sufficient resolution adequate for diagnostic evaluation.
--- NOTE | 2017-11-06 17:04 | Pre-Procedure Note/Attestation ---
Pre-Procedure Note/Attestation Complete Prior to Procedure Planned Procedure: not applicable Procedure Narrative: PICC line Indications for Procedure Pre-Operative Diagnosis: critically ill patient, need reliable IV access Attestation Request made by ER physician Dr. Shore. Patient with no reliable IV access and hyperkalemia(potassium 7.2), needing reliable IV access for emergent medication administration and fluids. Concerned given hyperkalemia and discussed Ahsan catheter vs PICC line with who confirmed request for PICC line. Given urgent nature of the procedure Dr. Shore signed consent. A signed consent was confirmed prior to the procedure. Greg Watson M.D. Nov 06, 2017 17:04
--- NOTE | 2017-11-06 17:14 | Diagnostic Imaging Report ---
Indications: Hyperkalemia. Poor IV access. Need reliable IV access for emergent medication administration and fluids. Of note, discussed with the catheter versus PICC line with ordering physician Dr. Shore. He confirmed PICC was requested. Technique: Procedure performed at bedside. Procedural timeout performed. Ultrasound confirms patent compressible left brachial vein. Total sterile technique, including sterile probe cover and sterile gel, sterile gloves, hand hygiene, hat, mask,, sterile gown, large sterile drape, and preparation with 2% chlorhexidine utilized. Local anesthesia with 1% lidocaine. Under real-time ultrasound guidance, puncture left brachial vein using 21-gauge needle, passage 0.018 guidewire, exchange for 5 Omani peel-away sheath. 5 [place]mani dual-lumen power PICC cut to 38cm. It was inserted through the peel-away sheath. Peel-away sheath and guidewire removed. Catheter fixed to the skin. Both catheter ports aspirated and flushed. Patient tolerated procedure well, without immediate complication. Followup chest x-ray obtained, documents catheter tip position at the left innominate vein. Impression: Successful bedside placement of 5 Omani double-lumen PICC under sonographic guidance, as described above.
[2017-11-06 17:57] VITALS: BP 145/59
[2017-11-06] MEDS ORDERED: Metoclopramide 10mg/2ml Inj IVP PRN (19:15)
[2017-11-06] MEDS ORDERED: Promethazine HCl 25 MG in NS 55 ML IV PRN (19:15)
[2017-11-06] MEDS ORDERED: Promethazine HCl 12.5 MG in NS 55 ML IV PRN (19:15)
[2017-11-06] MEDS ORDERED: Morphine Sulfate 2mg/ml Inj IVP PRN (19:15)
[2017-11-06] MEDS ORDERED: LORazepam Inj 2mg/ml 1ml IV PRN (19:15)
[2017-11-06] MEDS ORDERED: Mylanta II UD 30ml ORAL PRN (19:15)
[2017-11-06] MEDS ORDERED: Nitroglycerin Subl 0.4mg tab SL PRN (19:15)
[2017-11-06] MEDS ORDERED: Miralax 17gm pkt ORAL PRN (19:15)
[2017-11-06] MEDS: D5 1/2NS 1,000 ML IV SCH (19:48)
[2017-11-06] MEDS ORDERED: Dyna-Hex 2% Top Sol 2oz TOPIC SCH (20:00)
[2017-11-06] MEDS ORDERED: Tamsulosin 0.4mg cap ORAL SCH (21:00)
[2017-11-06] MEDS: Depakote ER 500mg tab ORAL SCH (21:16)
[2017-11-06] MEDS: HydrALAZINE 25mg tab ORAL SCH (21:17)
[2017-11-06] MEDS: Metoprolol 25mg tab ORAL SCH (21:17)
[2017-11-06] MEDS: Heparin 5000 units/ml inj SUBQ SCH (21:18)
[2017-11-07] VITALS: BP 132/75
[2017-11-07 04:00] VITALS: BP 114/60
[2017-11-07 06:02] LABS: BASOPHILS % (AUTO) 0.7 % (0.0-2.0); EOSINOPHILS % (AUTO) 0.7 % (0.0-3.0); HEMATOCRIT 30.6 % (37.0-47.0); LYMPHOCYTES % (AUTO) 21.8 % (20.0-45.0); MEAN CORPUSCULAR VOLUME 102 FL (80-99); MONOCYTES % (AUTO) 10.9 % (1.0-10.0); NEUTROPHILS % (AUTO) 65.9 % (45.0-75.0); PLATELET COUNT 139 K/UL (150-450); RED BLOOD COUNT 2.99 M/UL (4.20-5.40); RED CELL DISTRIBUTION WIDTH 13.1 % (11.6-14.8); WHITE BLOOD COUNT 3.8 K/UL (4.8-10.8)
[2017-11-07 06:46] LABS: ALANINE AMINOTRANSFERASE 25 U/L (12-78); ALBUMIN 2.9 G/DL (3.4-5.0); ALBUMIN/GLOBULIN RATIO 0.9 (1.0-2.7); ALKALINE PHOSPHATASE 60 U/L (46-116); AMYLASE 160 U/L (25-115); ANION GAP 5 mmol/L (5-15); ASPARTATE AMINO TRANSFERASE 17 U/L (15-37); BILIRUBIN,TOTAL 0.2 MG/DL (0.2-1.0); BLOOD UREA NITROGEN 55 mg/dL (7-18); CALCIUM 8.7 MG/DL (8.5-10.1); CARBON DIOXIDE 26 MMOL/L (21-32); CHLORIDE 106 MMOL/L (98-107); CREATININE 2.6 MG/DL (0.55-1.30); POTASSIUM 5.7 MMOL/L (3.5-5.1); SODIUM 137 MMOL/L (136-145)
[2017-11-07 08:00] VITALS: BP 132/73
--- NOTE | 2017-11-07 08:08 | Consultation ---
History of Present Illness General Date patient seen: Nov 07, 2017 Chief Complaint: Altered Level of Consciousness Reason for Consultation: Vomiting and AMS Present Illness HPI Ms May is a 62 yo female who presented to the ED on 11/06/17 from her assisted with AMS and vomiting. Per the nursing notes that patient had vomited the night before admission and then the patient was somnolent in the AM but arrousable is shaken. In the ED she was Afebrile with no leukocytosis and her UA was not impressive for infection. She was in the ED 9 days ago having hallucinations and a UTI. She mental status at that time was A/O x 4 per notes. ID was consulted for gastroenteritis. Today the patient is awake and would like to go back to her assisted. She know her name and that she is in the hospital. She says that she vomited once but has not vomited since. She denies F/C, HALL, SOB, CP, Abd Pain, Current N/V/D and dysuria PMHx/PSHx HTN AR CAD COPD GERD CVA/TIA Psych Hx Renal Disease SocHx No E/T/D FamHx Non-contributory Allergies: Coded Allergies: LEVOFLOXACIN (Unverified Allergy, Unknown, 10/28/17) MEROPENEM (Unverified Allergy, Unknown, 10/28/17) PENICILLINS (Verified Allergy, Unknown, 03/17/16) Medication History Scheduled Aripiprazole* (Abilify*), 30 MG ORAL HS, (Reported) Ascorbic Acid* (Vitamin C*), 500 MG ORAL DAILY, (Reported) Aspirin* (Aspirin*), 81 MG ORAL DAILY, (Reported) Aspirin* (Aspir 81*), 81 MG ORAL DAILY, (Reported) Atorvastatin (Lipitor), 80 MG ORAL BEDTIME, (Reported) Atorvastatin Calcium* (Lipitor*), 10 MG ORAL BEDTIME, (Reported) Baclofen* (Baclofen*), 10 MG ORAL THREE TIMES A DAY, (Reported) Cephalexin* (Keflex*), 500 MG ORAL TID Cholecalciferol (Vitamin D3)* (Vitamin D*), 1,000 UNIT ORAL DAILY, (Reported) Clonidine Hcl* (Catapres*), 0.1 MG ORAL EVERY 8 HOURS, (Reported) Divalproex Sodium (Divalproex Sodium Er), 500 MG PO Q12HR, (Reported) Fenofibrate (Fenofibrate), 54 MG ORAL DAILY, (Reported) Ferric Subsulfate (Ferric Subsulfate), 325 GM MC DAILY, (Reported) Fluoxetine Hcl* (Prozac*), 40 MG ORAL DAILY, (Reported) Furosemide* (Lasix*), 40 MG ORAL DAILY, (Reported) Gabapentin (Neurontin), 100 MG ORAL TID, (Reported) Gabapentin* (Gabapentin*), 100 MG ORAL THREE TIMES A DAY, (Reported) Hydralazine HCl (Hydralazine HCl), 25 MG PO Q12HR, (Reported) Ibuprofen* (Motrin*), 600 MG ORAL FOUR TIMES A DAY, (Reported) Metoprolol Tartrate* (Metoprolol Tartrate*), 25 MG ORAL EVERY 12 HOURS, ( Reported) Multivitamin With Minerals (Multivitamins With Minerals*), 1 TAB ORAL DAILY, ( Reported) Nitroglycerin (Nitroglycerin), 0.4 MG SL X3, (Reported) Tamsulosin Hcl (Tamsulosin Hcl*), 0.4 MG ORAL BEDTIME, (Reported) Scheduled PRN Acetaminophen* (Acetaminophen 325MG Tablet*), 650 MG ORAL Q6H PRN for For Pain, (Reported) Diphenhydramine Hcl* (Benadryl*), 50 MG ORAL Q6H PRN for Itching, (Reported) Hydrocodone/Acetaminophen 5-325* (Hydrocodone/Acetaminophen 5-325*), 1 TAB ORAL Q4H PRN for For Pain, (Reported) Ibuprofen* (Motrin*), 400 MG ORAL Q 6HOURS PRN for Pain Scale (3-5), (Reported) Miscellaneous Medications Magnesium Oxide (Mag-Oxide), 400 MG PO, (Reported) Patient History Healthcare decision maker N Resuscitation status Full Code Advanced Directive on File Review of Systems All Other Systems: negative except mentioned in HPI Physical Exam Last 24 Hour Vital Signs Date Time Temp Pulse Resp B/P (MAP) Pulse Ox O2 Delivery O2 Flow Rate FiO2 11/07/17 06:13 116/64 11/07/17 04:36 83 11/07/17 04:00 97.5 79 18 114/60 (78) 95 97.5 11/07/17 00:00 97.7 82 18 132/75 (94) 98 97.7 11/06/17 23:43 82 11/06/17 22:56 137/76 11/06/17 21:17 80 135/70 11/06/17 21:17 135/70 11/06/17 21:00 Nasal Cannula 3.0 11/06/17 19:26 Nasal Cannula 3.0 11/06/17 19:05 97.8 85 15 145/59 98 Nasal Cannula 3.0 97.8 11/06/17 19:02 83 11/06/17 17:57 85 15 145/59 98 Nasal Cannula 3.0 11/06/17 14:51 97.8 74 12 130/49 98 Nasal Cannula 3.0 97.8 11/06/17 12:41 97.8 77 12 137/67 95 Nasal Cannula 3.0 97.8 11/06/17 12:34 96.4 88 18 126/64 98 Nasal Cannula 2.0 96.4 Intake and Output 11/06/17 11/07/17 19:00 07:00 Intake Total 240 ml Balance 240 ml Intake Oral 240 ml # Bowel Movements 2 Laboratory Tests Test 11/06/17 13:15 11/06/17 13:35 11/06/17 15:10 11/07/17 04:00 White Blood Count 6.4 K/UL (4.8-10.8) 3.8 K/UL (4.8-10.8) L Red Blood Count 3.84 M/UL (4.20-5.40) L 2.99 M/UL (4.20-5.40) L Hemoglobin 12.6 G/DL (12.0-16.0) 10.0 G/DL (12.0-16.0) L Hematocrit 39.3 % (37.0-47.0) 30.6 % (37.0-47.0) L Mean Corpuscular Volume 102 FL (80-99) H 102 FL (80-99) H Mean Corpuscular Hemoglobin 32.7 PG (27.0-31.0) H 33.4 PG (27.0-31.0) H Mean Corpuscular Hemoglobin Concent 31.9 G/DL (32.0-36.0) L 32.6 G/DL (32.0-36.0) Red Cell Distribution Width 13.1 % (11.6-14.8) 13.1 % (11.6-14.8) Platelet Count 211 K/UL (150-450) 139 K/UL (150-450) L Mean Platelet Volume 6.5 FL (6.5-10.1) 6.2 FL (6.5-10.1) L Neutrophils (%) (Auto) 66.7 % (45.0-75.0) 65.9 % (45.0-75.0) Lymphocytes (%) (Auto) 23.2 % (20.0-45.0) 21.8 % (20.0-45.0) Monocytes (%) (Auto) 8.4 % (1.0-10.0) 10.9 % (1.0-10.0) H Eosinophils (%) (Auto) 0.5 % (0.0-3.0) 0.7 % (0.0-3.0) Basophils (%) (Auto) 1.2 % (0.0-2.0) 0.7 % (0.0-2.0) Lactic Acid Level < 0.30 mmol/L (0.4-2.0) L Troponin I 0.013 ng/mL (0.000-0.056) Urine Color Pale yellow Urine Appearance Slightly cloudy Urine pH 5 (4.5-8.0) Urine Specific [place] 1.025 (1.005-1.035) Urine Protein 3+ (NEGATIVE) H Urine Glucose (UA) Negative (NEGATIVE) Urine Ketones Negative (NEGATIVE) Urine Blood Negative (NEGATIVE) Urine Nitrite Negative (NEGATIVE) Urine Bilirubin Negative (NEGATIVE) Urine Urobilinogen Normal MG/DL (0.0-1.0) Urine Leukocyte Esterase Negative (NEGATIVE) Urine RBC 0-2 /HPF (0 - 2) Urine WBC 0-2 /HPF (0 - 2) Urine Squamous Epithelial Cells Moderate /LPF (NONE/OCC) H Urine Amorphous Sediment Many /LPF (NONE) H Urine Bacteria Few /HPF (NONE) Sodium Level 139 MMOL/L (136-145) 137 MMOL/L (136-145) Potassium Level 7.2 MMOL/L (3.5-5.1) *H 5.7 MMOL/L (3.5-5.1) H Chloride Level 106 MMOL/L (98-107) 106 MMOL/L (98-107) Carbon Dioxide Level 27 MMOL/L (21-32) 26 MMOL/L (21-32) Anion Gap 6 mmol/L (5-15) 5 mmol/L (5-15) Blood Urea Nitrogen 63 mg/dL (7-18) H 55 mg/dL (7-18) H Creatinine 3.1 MG/DL (0.55-1.30) H 2.6 MG/DL (0.55-1.30) H Estimat Glomerular Filtration Rate 15.1 mL/min (>60) 18.6 mL/min (>60) Glucose Level 102 MG/DL (74-106) 120 MG/DL (74-106) H Calcium Level 9.4 MG/DL (8.5-10.1) 8.7 MG/DL (8.5-10.1) Total Bilirubin 0.2 MG/DL (0.2-1.0) 0.2 MG/DL (0.2-1.0) Aspartate Amino Transf (AST/SGOT) 14 U/L (15-37) L 17 U/L (15-37) Alanine Aminotransferase (ALT/SGPT) 30 U/L (12-78) 25 U/L (12-78) Alkaline Phosphatase 79 U/L (46-116) 60 U/L (46-116) Total Creatine Kinase 36 U/L (26-308) Creatine Kinase MB 0.6 NG/ML (0.0-3.6) Creatine Kinase MB Relative Index 1.6 Total Protein 7.9 G/DL (6.4-8.2) 6.2 G/DL (6.4-8.2) L Albumin 3.7 G/DL (3.4-5.0) 2.9 G/DL (3.4-5.0) L Globulin 4.2 g/dL 3.3 g/dL Albumin/Globulin Ratio 0.9 (1.0-2.7) L 0.9 (1.0-2.7) L Activated Partial Thromboplast Time 22 SEC (23-33) L Amylase Level 160 U/L (25-115) H Lipase 184 U/L (73-393) Height (Feet): 5 Height (Inches): 4.00 Weight (Pounds): 180 Medications Current Medications Medications (Trade) Dose Ordered Sig/Leroy Route PRN Reason Start Time Stop Time Status Last Admin Dose Admin Acetaminophen (Tylenol) 650 mg Q4H PRN ORAL fever 11/06/17 19:15 12/06/17 19:14 Al Hydroxide/Mg Hydroxide (Mylanta II) 30 ml Q6H PRN ORAL dyspepsia 11/06/17 19:15 12/06/17 19:14 Aripiprazole (Abilify) 30 mg DAILY ORAL 11/07/17 09:00 12/07/17 08:59 Chlorhexidine Gluconate (Bryanna-Hex 2%) 1 applic DAILY@2000 TOPIC 11/06/17 20:00 12/06/17 19:59 11/06/17 19:48 Clonidine HCl (Catapres Tab) 0.1 mg EVERY 8 HOURS ORAL 11/06/17 22:00 12/06/17 21:59 11/07/17 06:13 Dextrose (Dextrose 50%) 25 ml PRN IV Hypoglycemia 11/06/17 19:15 12/06/17 19:14 Dextrose (Dextrose 50%) 50 ml PRN IV hypoglycemia 11/06/17 19:15 12/06/17 19:14 Dextrose/Sodium Chloride 1,000 ml @ 75 mls/hr [id number] IV 11/06/17 19:05 12/06/17 19:04 11/06/17 19:48 Diphenhydramine HCl (Benadryl) 25 mg Q6H PRN ORAL Itching/Pruritis 11/06/17 19:15 12/06/17 19:14 Divalproex Sodium (Depakote ER) 500 mg Q12HR ORAL 11/06/17 21:00 12/06/17 20:59 11/06/17 21:16 Fluoxetine HCl (PROzac) 40 mg DAILY ORAL 11/07/17 09:00 12/07/17 08:59 Gabapentin (Neurontin) 100 mg TID ORAL 11/07/17 09:00 12/07/17 08:59 Heparin Sodium (Porcine) (Heparin 5000 units/ml) 5,000 units EVERY 12 HOURS SUBQ 11/06/17 21:00 12/06/17 20:59 11/06/17 21:18 Hydralazine HCl (Apresoline) 25 mg Q12HR ORAL 11/06/17 21:00 10/17/18 20:59 11/06/17 21:17 Lorazepam (Ativan 2mg/ml 1ml) 1 mg Q4H PRN IV agitation 11/06/17 19:15 11/13/17 19:14 11/07/17 01:39 Metoclopramide HCl (Reglan) 10 mg Q6H PRN IVP severe nausea 11/06/17 19:15 12/06/17 19:14 Metoprolol Tartrate (Lopressor) 25 mg EVERY 12 HOURS ORAL 11/06/17 21:00 12/06/17 20:59 11/06/17 21:17 Morphine Sulfate (Morphine Sulfate) 2 mg Q4H PRN IVP severe Pain (Pain Scale 7-10) 11/06/17 19:15 11/13/17 19:14 Nitroglycerin (Ntg) 0.4 mg Q5M X 3 DOSES PRN SL Prn Chest Pain 11/06/17 19:15 12/06/17 19:14 Ondansetron HCl (Zofran) 4 mg Q6H PRN IVP Nausea & Vomiting 11/06/17 19:15 12/06/17 19:14 Pantoprazole (Protonix) 40 mg DAILY IV 11/07/17 09:00 12/07/17 08:59 Polyethylene Glycol (Miralax) 17 gm HSPRN PRN ORAL Constipation 11/06/17 19:15 12/06/17 19:14 Promethazine HCl (Phenergan) 25 mg Q6H PRN IM REFRACTORY SEIZURE 11/06/17 19:45 12/06/17 19:44 Tamsulosin HCl (Flomax) 0.4 mg BEDTIME ORAL 11/06/17 21:00 12/06/17 20:59 11/06/17 21:16 Temazepam (Restoril) 15 mg HSPRN PRN ORAL Insomnia 11/06/17 19:15 11/13/17 19:14 Objective Narrative Gen: NAD, well appearing, alert but not fully oriented HEENT: NCAT, MMM, EOMI, PERRL, No Oral lesion, no scleral icterus NECK: full range of motion, supple, no meningismus, No LAD, No JVD LUNGS: CTAB, No W/C, No Accessory muscle use CARDS: RRR, S1, S2, No M/R/G ABD: Soft, NT, ND, No R/G, + BS, No HSM, No Masses : Deferred Ext: C/C/E, Pulses 2+ B/L (DP, Rad) NEURO: A/O x 1 (Name) Appropriate, Strength and Sensation Grossly intact PSYCH: mood/affect normal SKIN: warm/dry, No rashes, Assessment/Plan Assessment/Plan 62 yo female who presented to the ED on 11/06/17 from her assisted with AMS and vomiting. Encephalopathy Resolved Vomiting - Unclear etiology Viral enteritis, Medication, Food toxin? Resolved HTN AR CAD COPD GERD CVA/TIA Psych Hx Renal Disease Plan: Continue to monitor off Abx f/u US Monitor CBC and Temps Thank you for this consult. We will continue to follow the patient during this hospitalization. Terry Wagoner MD Nov 07, 2017 08:08
[2017-11-07] MEDS: D5 1/2NS 1,000 ML IV SCH ×2 (08:25→15:13)
[2017-11-07] MEDS ORDERED: Pantoprazole Inj IV SCH (09:00)
[2017-11-07] MEDS: Heparin 5000 units/ml inj SUBQ SCH ×2 (09:00→21:00)
[2017-11-07] MEDS ORDERED: ARIPiprazole 10mg tab ORAL SCH (09:00)
[2017-11-07] MEDS: HydrALAZINE 25mg tab ORAL SCH (09:26)
[2017-11-07] MEDS: Metoprolol 25mg tab ORAL SCH ×2 (09:26→21:15)
[2017-11-07] MEDS: Depakote ER 500mg tab ORAL SCH ×2 (09:26→21:16)
--- NOTE | 2017-11-07 11:09 | Consultation ---
History of Present Illness General Date patient seen: Nov 07, 2017 Chief Complaint: Altered Level of Consciousness Reason for Consultation: Vomiting and AMS Present Illness HPI 62 year old female with hx of psychosis, COPD, CVA, HTN, renal insufficiency presented from a custodial facility with CC of altered mental status and an episode of vomiting. Her K was critically high. After initial treatment in ER, she is admitted to telemetry for further treatment. Allergies: Coded Allergies: LEVOFLOXACIN (Unverified Allergy, Unknown, 10/28/17) MEROPENEM (Unverified Allergy, Unknown, 10/28/17) PENICILLINS (Verified Allergy, Unknown, 03/17/16) Medication History Scheduled Aripiprazole* (Abilify*), 30 MG ORAL HS, (Reported) Ascorbic Acid* (Vitamin C*), 500 MG ORAL DAILY, (Reported) Aspirin* (Aspirin*), 81 MG ORAL DAILY, (Reported) Aspirin* (Aspir 81*), 81 MG ORAL DAILY, (Reported) Atorvastatin (Lipitor), 80 MG ORAL BEDTIME, (Reported) Atorvastatin Calcium* (Lipitor*), 10 MG ORAL BEDTIME, (Reported) Baclofen* (Baclofen*), 10 MG ORAL THREE TIMES A DAY, (Reported) Cephalexin* (Keflex*), 500 MG ORAL TID Cholecalciferol (Vitamin D3)* (Vitamin D*), 1,000 UNIT ORAL DAILY, (Reported) Clonidine Hcl* (Catapres*), 0.1 MG ORAL EVERY 8 HOURS, (Reported) Divalproex Sodium (Divalproex Sodium Er), 500 MG PO Q12HR, (Reported) Fenofibrate (Fenofibrate), 54 MG ORAL DAILY, (Reported) Ferric Subsulfate (Ferric Subsulfate), 325 GM MC DAILY, (Reported) Fluoxetine Hcl* (Prozac*), 40 MG ORAL DAILY, (Reported) Furosemide* (Lasix*), 40 MG ORAL DAILY, (Reported) Gabapentin (Neurontin), 100 MG ORAL TID, (Reported) Gabapentin* (Gabapentin*), 100 MG ORAL THREE TIMES A DAY, (Reported) Hydralazine HCl (Hydralazine HCl), 25 MG PO Q12HR, (Reported) Ibuprofen* (Motrin*), 600 MG ORAL FOUR TIMES A DAY, (Reported) Metoprolol Tartrate* (Metoprolol Tartrate*), 25 MG ORAL EVERY 12 HOURS, ( Reported) Multivitamin With Minerals (Multivitamins With Minerals*), 1 TAB ORAL DAILY, ( Reported) Nitroglycerin (Nitroglycerin), 0.4 MG SL X3, (Reported) Tamsulosin Hcl (Tamsulosin Hcl*), 0.4 MG ORAL BEDTIME, (Reported) Scheduled PRN Acetaminophen* (Acetaminophen 325MG Tablet*), 650 MG ORAL Q6H PRN for For Pain, (Reported) Diphenhydramine Hcl* (Benadryl*), 50 MG ORAL Q6H PRN for Itching, (Reported) Hydrocodone/Acetaminophen 5-325* (Hydrocodone/Acetaminophen 5-325*), 1 TAB ORAL Q4H PRN for For Pain, (Reported) Ibuprofen* (Motrin*), 400 MG ORAL Q 6HOURS PRN for Pain Scale (3-5), (Reported) Miscellaneous Medications Magnesium Oxide (Mag-Oxide), 400 MG PO, (Reported) Patient History Healthcare decision maker N Resuscitation status Full Code Advanced Directive on File Past Medical/Surgical History Past Medical/Surgical History: (1) COPD (chronic obstructive pulmonary disease) (2) HTN (hypertension) (3) Renal insufficiency Review of Systems All Other Systems: negative except mentioned in HPI Physical Exam General Appearance: WD/WN, no apparent distress Lines, tubes and drains: peripheral HEENT: normocephalic, atraumatic, anicteric Neck: non-tender, normal alignment Respiratory/Chest: chest wall non-tender, lungs clear, normal breath sounds Breasts: no masses Cardiovascular/Chest: normal peripheral pulses Abdomen: normal bowel sounds, non tender Genitourinary/Rectal: normal genital exam, normal rectal exam Extremities: normal range of motion Skin Exam: normal pigmentation Last 24 Hour Vital Signs Date Time Temp Pulse Resp B/P (MAP) Pulse Ox O2 Delivery O2 Flow Rate FiO2 11/07/17 09:26 90 132/73 11/07/17 09:26 132/73 11/07/17 08:00 97.7 90 18 132/73 (92) 95 97.7 11/07/17 06:13 116/64 11/07/17 04:36 83 11/07/17 04:00 97.5 79 18 114/60 (78) 95 97.5 11/07/17 00:00 97.7 82 18 132/75 (94) 98 97.7 11/06/17 23:43 82 11/06/17 22:56 137/76 11/06/17 21:17 80 135/70 11/06/17 21:17 135/70 11/06/17 21:00 Nasal Cannula 3.0 11/06/17 19:26 Nasal Cannula 3.0 11/06/17 19:05 97.8 85 15 145/59 98 Nasal Cannula 3.0 97.8 11/06/17 19:02 83 11/06/17 17:57 85 15 145/59 98 Nasal Cannula 3.0 11/06/17 14:51 97.8 74 12 130/49 98 Nasal Cannula 3.0 97.8 11/06/17 12:41 97.8 77 12 137/67 95 Nasal Cannula 3.0 97.8 11/06/17 12:34 96.4 88 18 126/64 98 Nasal Cannula 2.0 96.4 Intake and Output 11/06/17 11/07/17 19:00 07:00 Intake Total 240 ml Balance 240 ml Intake Oral 240 ml # Bowel Movements 2 Laboratory Tests Test 11/06/17 13:15 11/06/17 13:35 11/06/17 15:10 11/07/17 04:00 White Blood Count 6.4 K/UL (4.8-10.8) 3.8 K/UL (4.8-10.8) L Red Blood Count 3.84 M/UL (4.20-5.40) L 2.99 M/UL (4.20-5.40) L Hemoglobin 12.6 G/DL (12.0-16.0) 10.0 G/DL (12.0-16.0) L Hematocrit 39.3 % (37.0-47.0) 30.6 % (37.0-47.0) L Mean Corpuscular Volume 102 FL (80-99) H 102 FL (80-99) H Mean Corpuscular Hemoglobin 32.7 PG (27.0-31.0) H 33.4 PG (27.0-31.0) H Mean Corpuscular Hemoglobin Concent 31.9 G/DL (32.0-36.0) L 32.6 G/DL (32.0-36.0) Red Cell Distribution Width 13.1 % (11.6-14.8) 13.1 % (11.6-14.8) Platelet Count 211 K/UL (150-450) 139 K/UL (150-450) L Mean Platelet Volume 6.5 FL (6.5-10.1) 6.2 FL (6.5-10.1) L Neutrophils (%) (Auto) 66.7 % (45.0-75.0) 65.9 % (45.0-75.0) Lymphocytes (%) (Auto) 23.2 % (20.0-45.0) 21.8 % (20.0-45.0) Monocytes (%) (Auto) 8.4 % (1.0-10.0) 10.9 % (1.0-10.0) H Eosinophils (%) (Auto) 0.5 % (0.0-3.0) 0.7 % (0.0-3.0) Basophils (%) (Auto) 1.2 % (0.0-2.0) 0.7 % (0.0-2.0) Lactic Acid Level < 0.30 mmol/L (0.4-2.0) L Troponin I 0.013 ng/mL (0.000-0.056) Urine Color Pale yellow Urine Appearance Slightly cloudy Urine pH 5 (4.5-8.0) Urine Specific [place] 1.025 (1.005-1.035) Urine Protein 3+ (NEGATIVE) H Urine Glucose (UA) Negative (NEGATIVE) Urine Ketones Negative (NEGATIVE) Urine Blood Negative (NEGATIVE) Urine Nitrite Negative (NEGATIVE) Urine Bilirubin Negative (NEGATIVE) Urine Urobilinogen Normal MG/DL (0.0-1.0) Urine Leukocyte Esterase Negative (NEGATIVE) Urine RBC 0-2 /HPF (0 - 2) Urine WBC 0-2 /HPF (0 - 2) Urine Squamous Epithelial Cells Moderate /LPF (NONE/OCC) H Urine Amorphous Sediment Many /LPF (NONE) H Urine Bacteria Few /HPF (NONE) Sodium Level 139 MMOL/L (136-145) 137 MMOL/L (136-145) Potassium Level 7.2 MMOL/L (3.5-5.1) *H 5.7 MMOL/L (3.5-5.1) H Chloride Level 106 MMOL/L (98-107) 106 MMOL/L (98-107) Carbon Dioxide Level 27 MMOL/L (21-32) 26 MMOL/L (21-32) Anion Gap 6 mmol/L (5-15) 5 mmol/L (5-15) Blood Urea Nitrogen 63 mg/dL (7-18) H 55 mg/dL (7-18) H Creatinine 3.1 MG/DL (0.55-1.30) H 2.6 MG/DL (0.55-1.30) H Estimat Glomerular Filtration Rate 15.1 mL/min (>60) 18.6 mL/min (>60) Glucose Level 102 MG/DL (74-106) 120 MG/DL (74-106) H Calcium Level 9.4 MG/DL (8.5-10.1) 8.7 MG/DL (8.5-10.1) Total Bilirubin 0.2 MG/DL (0.2-1.0) 0.2 MG/DL (0.2-1.0) Aspartate Amino Transf (AST/SGOT) 14 U/L (15-37) L 17 U/L (15-37) Alanine Aminotransferase (ALT/SGPT) 30 U/L (12-78) 25 U/L (12-78) Alkaline Phosphatase 79 U/L (46-116) 60 U/L (46-116) Total Creatine Kinase 36 U/L (26-308) Creatine Kinase MB 0.6 NG/ML (0.0-3.6) Creatine Kinase MB Relative Index 1.6 Total Protein 7.9 G/DL (6.4-8.2) 6.2 G/DL (6.4-8.2) L Albumin 3.7 G/DL (3.4-5.0) 2.9 G/DL (3.4-5.0) L Globulin 4.2 g/dL 3.3 g/dL Albumin/Globulin Ratio 0.9 (1.0-2.7) L 0.9 (1.0-2.7) L Activated Partial Thromboplast Time 22 SEC (23-33) L Amylase Level 160 U/L (25-115) H Lipase 184 U/L (73-393) Height (Feet): 5 Height (Inches): 4.00 Weight (Pounds): 180 Medications Current Medications Medications (Trade) Dose Ordered Sig/Leroy Route PRN Reason Start Time Stop Time Status Last Admin Dose Admin Acetaminophen (Tylenol) 650 mg Q4H PRN ORAL fever 11/06/17 19:15 12/06/17 19:14 Al Hydroxide/Mg Hydroxide (Mylanta II) 30 ml Q6H PRN ORAL dyspepsia 11/06/17 19:15 12/06/17 19:14 Aripiprazole (Abilify) 30 mg DAILY ORAL 11/07/17 09:00 12/07/17 08:59 11/07/17 09:25 Chlorhexidine Gluconate (Bryanna-Hex 2%) 1 applic DAILY@2000 TOPIC 11/06/17 20:00 12/06/17 19:59 11/06/17 19:48 Clonidine HCl (Catapres Tab) 0.1 mg EVERY 8 HOURS ORAL 11/06/17 22:00 12/06/17 21:59 11/07/17 06:13 Dextrose (Dextrose 50%) 25 ml PRN IV Hypoglycemia 11/06/17 19:15 12/06/17 19:14 Dextrose (Dextrose 50%) 50 ml PRN IV hypoglycemia 11/06/17 19:15 12/06/17 19:14 Dextrose/Sodium Chloride 1,000 ml @ 75 mls/hr [id number] IV 11/06/17 19:05 12/06/17 19:04 11/07/17 08:25 Diphenhydramine HCl (Benadryl) 25 mg Q6H PRN ORAL Itching/Pruritis 11/06/17 19:15 12/06/17 19:14 Divalproex Sodium (Depakote ER) 500 mg Q12HR ORAL 11/06/17 21:00 12/06/17 20:59 11/07/17 09:26 Fluoxetine HCl (PROzac) 40 mg DAILY ORAL 11/07/17 09:00 12/07/17 08:59 11/07/17 09:26 Gabapentin (Neurontin) 100 mg TID ORAL 11/07/17 09:00 12/07/17 08:59 11/07/17 09:26 Heparin Sodium (Porcine) (Heparin 5000 units/ml) 5,000 units EVERY 12 HOURS SUBQ 11/06/17 21:00 12/06/17 20:59 11/06/17 21:18 Hydralazine HCl (Apresoline) 25 mg Q12HR ORAL 11/06/17 21:00 12/06/17 20:59 11/07/17 09:26 Lorazepam (Ativan 2mg/ml 1ml) 1 mg Q4H PRN IV agitation 11/06/17 19:15 11/13/17 19:14 11/07/17 01:39 Metoclopramide HCl (Reglan) 10 mg Q6H PRN IVP severe nausea 11/06/17 19:15 12/06/17 19:14 Metoprolol Tartrate (Lopressor) 25 mg EVERY 12 HOURS ORAL 11/06/17 21:00 12/06/17 20:59 11/07/17 09:26 Morphine Sulfate (Morphine Sulfate) 2 mg Q4H PRN IVP severe Pain (Pain Scale 7-10) 11/06/17 19:15 11/13/17 19:14 Nitroglycerin (Ntg) 0.4 mg Q5M X 3 DOSES PRN SL Prn Chest Pain 11/06/17 19:15 12/06/17 19:14 Ondansetron HCl (Zofran) 4 mg Q6H PRN IVP Nausea & Vomiting 11/06/17 19:15 12/06/17 19:14 Pantoprazole (Protonix) 40 mg DAILY IV 11/07/17 09:00 12/07/17 08:59 11/07/17 09:26 Polyethylene Glycol (Miralax) 17 gm HSPRN PRN ORAL Constipation 11/06/17 19:15 12/06/17 19:14 Promethazine HCl (Phenergan) 25 mg Q6H PRN IM REFRACTORY SEIZURE 11/06/17 19:45 12/06/17 19:44 Tamsulosin HCl (Flomax) 0.4 mg BEDTIME ORAL 11/06/17 21:00 12/06/17 20:59 11/06/17 21:16 Temazepam (Restoril) 15 mg HSPRN PRN ORAL Insomnia 11/06/17 19:15 11/13/17 19:14 Assessment/Plan Problem List: (1) Acute encephalopathy ICD Codes: G93.40 - Encephalopathy, unspecified SNOMED: 26118949, 582476896 (2) Renal failure ICD Codes: N19 - Unspecified kidney failure SNOMED: 83738898 (3) Hyperkalemia ICD Codes: E87.5 - Hyperkalemia SNOMED: 47955469 (4) COPD (chronic obstructive pulmonary disease) ICD Codes: J44.9 - Chronic obstructive pulmonary disease, unspecified SNOMED: 65305490 (5) HTN (hypertension) ICD Codes: I10 - Essential (primary) hypertension SNOMED: 56486198 Assessment/Plan iv fluids renal evaluation respiratory treatment check electrolytes dvt prophylaxis symptomatic treatment James Wing MD Nov 07, 2017 11:09
[2017-11-07 11:49] LABS: CREATINE KINASE 30 U/L (26-308)
[2017-11-07 12:00] VITALS: BP 115/60
--- NOTE | 2017-11-07 13:31 | GI Initial Consult Note ---
History of Present Illness General Date patient seen: Nov 07, 2017 Time patient seen: 14:03 Reason for Hospitalization: Altered Level of Consciousness Referring physician: DEBBIE PINO Reason for Consultation: Vomiting and AMS Present Illness HPI This patient presents from a custodial facility. She has a history of renal failure, hypertension, COPD, CVA with right-sided hemiplegia. History is per medical record and EMS. She presents for altered mental status and an episode of vomiting. There is no other history available. GI consulted for persistent vomiting. ROS limited, patient was seen awake NAD with no active s/sx of N/V/D. No reports of vomiting since admission. Patient presents with severe hyperkalemia 2/2 ESRD and anemia. No known history of endoscopy / colonoscopy. Home Meds Active Scripts Cephalexin* (KEFLEX*) 500 Mg Capsule, 500 MG ORAL TID, #21 CAP Prov:OZ SRINIVASAN M.D. 10/28/17 Reported Medications Acetaminophen* (ACETAMINOPHEN 325MG TABLET*) 325 Mg Tablet, 650 MG ORAL Q6H PRN for For Pain, TAB 11/06/17 Magnesium Oxide (MAG-OXIDE) 400 Mg Tablet, 400 MG PO, TAB 11/06/17 Metoprolol Tartrate* (METOPROLOL TARTRATE*) 25 Mg Tablet, 25 MG ORAL EVERY 12 HOURS, TAB 11/06/17 Hydralazine HCl (Hydralazine HCl) 25 Mg Tablet, 25 MG PO Q12HR, TAB 10/28/17 Gabapentin (Neurontin) 300 Mg Capsule, 100 MG ORAL TID, #7 CAP 0 Refills 10/28/17 Furosemide* (LASIX*) 40 Mg Tablet, 40 MG ORAL DAILY, TAB 10/28/17 Ferric Subsulfate (Ferric Subsulfate) 100 Gm Powder, 325 GM MC DAILY, GM 10/28/17 Atorvastatin (Lipitor) 80 Mg Tablet, 80 MG ORAL BEDTIME, #30 TAB 0 Refills 10/28/17 Aspirin* (ASPIR 81*) 81 Mg Tablet.dr, 81 MG ORAL DAILY, TAB 10/28/17 Ascorbic Acid* (VITAMIN C*) 500 Mg Tablet, 500 MG ORAL DAILY, #30 TAB 0 Refills 10/28/17 Nitroglycerin (NITROGLYCERIN) 0.4 Mg Tab.subl, 0.4 MG SL X3, TAB 03/17/16 Diphenhydramine Hcl* (BENADRYL*) 25 Mg Capsule, 50 MG ORAL Q6H PRN for Itching, CAP 03/17/16 Baclofen* (BACLOFEN*) 10 Mg Tablet, 10 MG ORAL THREE TIMES A DAY, TAB 03/17/16 Hydrocodone/Acetaminophen 5-325* (HYDROCODONE/ACETAMINOPHEN 5-325*) 1 Each Tablet, 1 TAB ORAL Q4H PRN for For Pain, TAB 0 Refills 03/17/16 Divalproex Sodium (DIVALPROEX SODIUM ER) 500 Mg Tab.er.24h, 500 MG PO Q12HR, TAB 03/17/16 Fluoxetine Hcl* (PROZAC*) 40 Mg Capsule, 40 MG ORAL DAILY, CAP 03/17/16 Aripiprazole* (ABILIFY*) 20 Mg Tablet, 30 MG ORAL HS, TAB 03/17/16 Ibuprofen* (MOTRIN*) 600 Mg Tablet, 400 MG ORAL Q 6HOURS PRN for Pain Scale (3-5 ), TAB 0 Refills 03/17/16 Ibuprofen* (MOTRIN*) 600 Mg Tablet, 600 MG ORAL FOUR TIMES A DAY, #30 TAB 0 Refills 03/17/16 Clonidine Hcl* (CATAPRES*) 0.1 Mg Tablet, 0.1 MG ORAL EVERY 8 HOURS, TAB 03/17/16 Tamsulosin Hcl (TAMSULOSIN HCL*) 0.4 Mg Cap.er.24h, 0.4 MG ORAL BEDTIME, CAP 03/17/16 Multivitamin With Minerals (MULTIVITAMINS WITH MINERALS*) 1 Each Tablet, 1 TAB ORAL DAILY, TAB 03/17/16 Gabapentin* (GABAPENTIN*) 100 Mg Capsule, 100 MG ORAL THREE TIMES A DAY, CAP 03/17/16 Fenofibrate (Fenofibrate) 54 Mg Tablet, 54 MG ORAL DAILY, TAB 0 Refills 03/17/16 Cholecalciferol (Vitamin D3)* (VITAMIN D*) 1,000 Unit Tablet, 1000 UNIT ORAL DAILY, TAB 03/17/16 Atorvastatin Calcium* (LIPITOR*) 10 Mg Tablet, 10 MG ORAL BEDTIME, TAB 03/17/16 Aspirin* (ASPIRIN*) 81 Mg Tab.chew, 81 MG ORAL DAILY, TAB 03/17/16 Med list reviewed/reconciled: Yes Allergies: Coded Allergies: LEVOFLOXACIN (Unverified Allergy, Unknown, 10/28/17) MEROPENEM (Unverified Allergy, Unknown, 10/28/17) PENICILLINS (Verified Allergy, Unknown, 03/17/16) Patient History History Provided By: Medical Record H Narrative Past Medical History: see triage record, HTN, MS, CAD, COPD, GERD, CVA/TIA, psych hx, renal disease Social History: Denies: smoking, alcohol use, drug use Review of Systems All Other Systems: limited Physical Exam Vital Signs Date Time Temp Pulse Resp B/P (MAP) Pulse Ox O2 Delivery O2 Flow Rate FiO2 11/06/17 12:34 96.4 88 18 126/64 98 Nasal Cannula 2.0 96.4 Sp02 EP Interpretation: reviewed, normal Labs Laboratory Tests Test 11/06/17 13:35 11/06/17 15:10 11/07/17 04:00 Urine Color Pale yellow Urine Appearance Slightly cloudy Urine pH 5 (4.5-8.0) Urine Specific [place] 1.025 (1.005-1.035) Urine Protein 3+ (NEGATIVE) H Urine Glucose (UA) Negative (NEGATIVE) Urine Ketones Negative (NEGATIVE) Urine Blood Negative (NEGATIVE) Urine Nitrite Negative (NEGATIVE) Urine Bilirubin Negative (NEGATIVE) Urine Urobilinogen Normal MG/DL (0.0-1.0) Urine Leukocyte Esterase Negative (NEGATIVE) Urine RBC 0-2 /HPF (0 - 2) Urine WBC 0-2 /HPF (0 - 2) Urine Squamous Epithelial Cells Moderate /LPF (NONE/OCC) H Urine Amorphous Sediment Many /LPF (NONE) H Urine Bacteria Few /HPF (NONE) Sodium Level 139 MMOL/L (136-145) 137 MMOL/L (136-145) Potassium Level 7.2 MMOL/L (3.5-5.1) *H 5.7 MMOL/L (3.5-5.1) H Chloride Level 106 MMOL/L (98-107) 106 MMOL/L (98-107) Carbon Dioxide Level 27 MMOL/L (21-32) 26 MMOL/L (21-32) Anion Gap 6 mmol/L (5-15) 5 mmol/L (5-15) Blood Urea Nitrogen 63 mg/dL (7-18) H 55 mg/dL (7-18) H Creatinine 3.1 MG/DL (0.55-1.30) H 2.6 MG/DL (0.55-1.30) H Estimat Glomerular Filtration Rate 15.1 mL/min (>60) 18.6 mL/min (>60) Glucose Level 102 MG/DL (74-106) 120 MG/DL (74-106) H Calcium Level 9.4 MG/DL (8.5-10.1) 8.7 MG/DL (8.5-10.1) Total Bilirubin 0.2 MG/DL (0.2-1.0) 0.2 MG/DL (0.2-1.0) Aspartate Amino Transf (AST/SGOT) 14 U/L (15-37) L 17 U/L (15-37) Alanine Aminotransferase (ALT/SGPT) 30 U/L (12-78) 25 U/L (12-78) Alkaline Phosphatase 79 U/L (46-116) 60 U/L (46-116) Total Creatine Kinase 36 U/L (26-308) 30 U/L (26-308) Creatine Kinase MB 0.6 NG/ML (0.0-3.6) Creatine Kinase MB Relative Index 1.6 Total Protein 7.9 G/DL (6.4-8.2) 6.2 G/DL (6.4-8.2) L Albumin 3.7 G/DL (3.4-5.0) 2.9 G/DL (3.4-5.0) L Globulin 4.2 g/dL 3.3 g/dL Albumin/Globulin Ratio 0.9 (1.0-2.7) L 0.9 (1.0-2.7) L White Blood Count 3.8 K/UL (4.8-10.8) L Red Blood Count 2.99 M/UL (4.20-5.40) L Hemoglobin 10.0 G/DL (12.0-16.0) L Hematocrit 30.6 % (37.0-47.0) L Mean Corpuscular Volume 102 FL (80-99) H Mean Corpuscular Hemoglobin 33.4 PG (27.0-31.0) H Mean Corpuscular Hemoglobin Concent 32.6 G/DL (32.0-36.0) Red Cell Distribution Width 13.1 % (11.6-14.8) Platelet Count 139 K/UL (150-450) L Mean Platelet Volume 6.2 FL (6.5-10.1) L Neutrophils (%) (Auto) 65.9 % (45.0-75.0) Lymphocytes (%) (Auto) 21.8 % (20.0-45.0) Monocytes (%) (Auto) 10.9 % (1.0-10.0) H Eosinophils (%) (Auto) 0.7 % (0.0-3.0) Basophils (%) (Auto) 0.7 % (0.0-2.0) Activated Partial Thromboplast Time 22 SEC (23-33) L Uric Acid 7.6 MG/DL (2.6-7.2) H Amylase Level 160 U/L (25-115) H Lipase 184 U/L (73-393) General Appearance: well appearing, no apparent distress, alert Head: normocephalic EENT: PERRL/EOMI, normal ENT inspection Neck: supple Respiratory: normal breath sounds, no respiratory distress Cardiovascular: normal rate Gastrointestinal: normal inspection, non tender, soft, normal bowel sounds, non -distended Rectal: deferred Genitourinary: no CVA tenderness Musculoskeletal: normal inspection, back normal Neurologic: alert, responsive Skin: normal inspection, normal color, no rash, warm/dry, palpation normal, well hydrated Lymphatic: normal inspection, no adenopathy Current Medications Current Medications Medications (Trade) Dose Ordered Sig/Leroy Route PRN Reason Start Time Stop Time Status Last Admin Dose Admin Acetaminophen (Tylenol) 650 mg Q4H PRN ORAL fever 11/06/17 19:15 12/06/17 19:14 Al Hydroxide/Mg Hydroxide (Mylanta II) 30 ml Q6H PRN ORAL dyspepsia 11/06/17 19:15 12/06/17 19:14 Aripiprazole (Abilify) 30 mg DAILY ORAL 11/07/17 09:00 12/07/17 08:59 11/07/17 09:25 Chlorhexidine Gluconate (Bryanna-Hex 2%) 1 applic DAILY@1999 TOPIC 11/06/17 20:00 12/06/17 19:59 11/06/17 19:48 Clonidine HCl (Catapres Tab) 0.1 mg EVERY 8 HOURS ORAL 11/06/17 22:00 12/06/17 21:59 11/07/17 06:13 Dextrose (Dextrose 50%) 25 ml PRN IV Hypoglycemia 11/06/17 19:15 12/06/17 19:14 Dextrose (Dextrose 50%) 50 ml PRN IV hypoglycemia 11/06/17 19:15 12/06/17 19:14 Dextrose/Sodium Chloride 1,000 ml @ 75 mls/hr [id number] IV 11/06/17 19:05 12/06/17 19:04 11/07/17 08:25 Diphenhydramine HCl (Benadryl) 25 mg Q6H PRN ORAL Itching/Pruritis 11/06/17 19:15 12/06/17 19:14 Divalproex Sodium (Depakote ER) 500 mg Q12HR ORAL 11/06/17 21:00 12/06/17 20:59 11/07/17 09:26 Fluoxetine HCl (PROzac) 40 mg DAILY ORAL 11/07/17 09:00 12/07/17 08:59 11/07/17 09:26 Gabapentin (Neurontin) 100 mg TID ORAL 11/07/17 09:00 12/07/17 08:59 11/07/17 09:26 Heparin Sodium (Porcine) (Heparin 5000 units/ml) 5,000 units EVERY 12 HOURS SUBQ 11/06/17 21:00 12/06/17 20:59 11/06/17 21:18 Hydralazine HCl (Apresoline) 25 mg Q12HR ORAL 11/06/17 21:00 12/06/17 20:59 11/07/17 09:26 Lorazepam (Ativan 2mg/ml 1ml) 1 mg Q4H PRN IV agitation 11/06/17 19:15 11/13/17 19:14 11/07/17 01:39 Metoclopramide HCl (Reglan) 10 mg Q6H PRN IVP severe nausea 11/06/17 19:15 12/06/17 19:14 Metoprolol Tartrate (Lopressor) 25 mg EVERY 12 HOURS ORAL 11/06/17 21:00 12/06/17 20:59 11/07/17 09:26 Morphine Sulfate (Morphine Sulfate) 2 mg Q4H PRN IVP severe Pain (Pain Scale 7-10) 11/06/17 19:15 11/13/17 19:14 Nitroglycerin (Ntg) 0.4 mg Q5M X 3 DOSES PRN SL Prn Chest Pain 11/06/17 19:15 12/06/17 19:14 Ondansetron HCl (Zofran) 4 mg Q6H PRN IVP Nausea & Vomiting 11/06/17 19:15 12/06/17 19:14 Pantoprazole (Protonix) 40 mg DAILY IV 11/07/17 09:00 12/07/17 08:59 11/07/17 09:26 Polyethylene Glycol (Miralax) 17 gm HSPRN PRN ORAL Constipation 11/06/17 19:15 12/06/17 19:14 Promethazine HCl (Phenergan) 25 mg Q6H PRN IM REFRACTORY SEIZURE 11/06/17 19:45 12/06/17 19:44 Tamsulosin HCl (Flomax) 0.4 mg BEDTIME ORAL 11/06/17 21:00 12/06/17 20:59 11/06/17 21:16 Temazepam (Restoril) 15 mg HSPRN PRN ORAL Insomnia 11/06/17 19:15 11/13/17 19:14 GI: Plan Problems: (1) Vomiting (2) Gastroenteritis (3) Fatty liver, alcoholic Plan possible EGD/colonoscopy this pending work up. electrolyte correction anemia work up OB stool r/o GI bleed monitor H&H, prn transfusions bowel regime ppi zofran prn fu labs Discussed with Dr. Bassett. Thank you for this patient referral, we will follow. The patient was seen and examined at bedside and all new and available data was reviewed in the patients chart. I agree with the above findings, impression and plan. (Patient seen earlier today. Signature stamp does not reflect patient encounter time.). - MD Lauryn Polo An[employer]o [employer] Nov 07, 2017 13:31
--- NOTE | 2017-11-07 14:22 | Cardiology Report ---
APPROVED REPORT EKG Measurement Heart [id number] Normal sinus rhythm Normal ECG
[2017-11-07] MEDS ORDERED: Nitroglycerin Subl 0.4mg tab SL PRN (14:45)
--- NOTE | 2017-11-07 14:48 | Diagnostic Imaging Report ---
Indication: Abdominal pain, abnormal renal function tests Technique: Partida-scale and duplex images of the upper abdomen were obtained Comparison: none Findings: Exam is technically limited due to body habitus, altered mental status resulting in limited ability to cooperate, excess bowel gas. Gallbladder demonstrates no gallstones. There is borderline gallbladder wall thickening, gallbladder wall measuring 3 mm in thickness. Sonographic Nagy's sign is negative. Common bile duct measures 5 mm in diameter. No intrahepatic biliary ductal dilatation. Liver demonstrates normal echogenicity, no focal abnormality. Portal vein and hepatic veins are patent. Pancreas is incompletely visualized due to overlying bowel gas, visualized portions are unremarkable. Spleen is unremarkable. Left kidney cannot be visualized. Right kidney measures 12.8 cm length. Right kidney demonstrates normal echogenicity There is no hydronephrosis. Multiple cysts are seen in the right kidney . Non-aneurysmal abdominal aorta . Impression: Somewhat limited exam, as described Negative for gallstones or dilated ducts Note nonvisualization of the left kidney and portions of the pancreas Incidental finding of multiple liver cysts
[2017-11-07] MEDS ORDERED: Mylanta II UD 30ml ORAL PRN (15:00)
[2017-11-07] MEDS ORDERED: Metoclopramide 10mg/2ml Inj IVP PRN (15:00)
[2017-11-07] MEDS ORDERED: Morphine Sulfate 2mg/ml Inj IVP PRN (15:15)
[2017-11-07 16:15] VITALS: BP 127/70
[2017-11-07] MEDS: LORazepam Inj 2mg/ml 1ml IV PRN ×2 (18:42→23:50)
[2017-11-07 18:54] LABS: COLOR,URINE PALE YELLOW
[2017-11-07 18:55] LABS: APPEARANCE,URINE CLEAR; BILIRUBIN, URINE NEGATIVE (NEGATIVE); GLUCOSE, URINE (UA) NEGATIVE (NEGATIVE); KETONES,URINE NEGATIVE (NEGATIVE); LEUKOCYTE ESTERASE ,URINE 2+ (NEGATIVE); NITRITE,URINE NEGATIVE (NEGATIVE); PROTEIN,URINE 3+ (NEGATIVE); UROBILINOGEN,URINE NORMAL MG/DL (0.0-1.0)
[2017-11-07] MEDS ORDERED: Miralax 17gm pkt ORAL PRN (19:15)
[2017-11-07 20:00] VITALS: BP 139/66
[2017-11-07] MEDS ORDERED: HydrALAZINE 25mg tab ORAL SCH (21:00)
--- NOTE | 2017-11-07 21:00 | History and Physical Report ---
DATE OF ADMISSION: 11/06/2017 CONSULTANTS: 1. Rashid Bassett M.D. 2. Ayad Khan M.D. 3. Darnell Britt M.D. 4. James Wing M.D. 5. Johann Hickman M.D. 6. John Paul Urias M.D. CHIEF COMPLAINT: Increased confusion, AGE, renal failure, and hyperkalemia. BRIEF HISTORY: This is a 62-year-old female from [facility], presented with the above-mentioned diagnoses, admitted to telemetry for further care. Currently, calm, O2 NC, sleeping in bed, lethargic, not responding to questions. REVIEW OF SYSTEMS: Unavailable. PAST MEDICAL HISTORY: Includes psych history, renal failure, COPD, and hypertension. PAST SURGICAL HISTORY: Unknown. MEDICATIONS: Include Abilify, Prozac, Neurontin, Catapres, Protonix, Depakote, Lopressor, Flomax, heparin, Phenergan, MiraLAX, Benadryl, nitroglycerin, Restoril, and Mylanta. ALLERGIES: Levofloxacin, meropenem, and penicillin. SOCIAL HISTORY: Unable to obtain secondary to the patient's lethargy. PHYSICAL EXAMINATION: GENERAL: Lethargic in bed, refusing to answer questions, and O2 NC in place. VITAL SIGNS: Temperature is 97 degrees, pulse 90, respirations 18, and blood pressure 132/73. CARDIOVASCULAR: No murmurs. LUNGS: Poor air exchange. ABDOMEN: Bowel sounds distant. EXTREMITIES: Show no cyanosis, clubbing, or edema. NEUROLOGIC: The patient moves all extremities, slightly weak. LABORATORY AND DIAGNOSTIC DATA: Lab exam show white count 3.8, hemoglobin and hematocrit are 10 and 30, and platelets 139,000. BMP shows potassium yesterday was 7.2, but today is 5.7. BUN and creatinine is 55 and 2.6. Glucose 120. Albumin 2.9. Amylase 160. PTT is 22. Urinalysis show 3+ protein. Otherwise normal. ASSESSMENT: 1. Altered mental status. 2. Acute gastroenteritis. 3. Renal failure. 4. Hyperkalemia. 5. Psych history. 6. Anemia. 7. Chronic obstructive pulmonary disease. 8. Hypertension. 9. Malnutrition. PLAN: 1. O2 pulmonary treatment. 2. Antibiotics per Infectious Disease. 3. IV fluids. 4. Nephrology followup. 5. OT, PT, and dietary evaluation. 6. CBC and BMP in the morning. 7. Blood pressure control. 8. Pain control. Vance Armstrong D.O. DR: YOSHI JOB#: [id number] CC:
[2017-11-07] MEDS: Dyna-Hex 2% Top Sol 2oz TOPIC SCH (21:04)
[2017-11-07] MEDS: Tamsulosin 0.4mg cap ORAL SCH (21:15)
[2017-11-08] VITALS: BP 130/70
[2017-11-08] MEDS: LORazepam Inj 2mg/ml 1ml IV PRN ×3 (03:53→22:09)
[2017-11-08] MEDS: D5 1/2NS 1,000 ML IV SCH ×2 (03:55→17:28)
[2017-11-08 04:00] VITALS: BP 107/56
[2017-11-08 06:19] LABS: BASOPHILS % (AUTO) 1.4 % (0.0-2.0); EOSINOPHILS % (AUTO) 2.1 % (0.0-3.0); HEMATOCRIT 29.2 % (37.0-47.0); HEMOGLOBIN 9.6 G/DL (12.0-16.0); LYMPHOCYTES % (AUTO) 27.5 % (20.0-45.0); MEAN CORPUSCULAR VOLUME 100 FL (80-99); PLATELET COUNT 148 K/UL (150-450); RED BLOOD COUNT 2.91 M/UL (4.20-5.40); RED CELL DISTRIBUTION WIDTH 12.5 % (11.6-14.8); WHITE BLOOD COUNT 3.5 K/UL (4.8-10.8)
[2017-11-08 07:41] LABS: ALANINE AMINOTRANSFERASE 26 U/L (12-78); ALBUMIN 2.8 G/DL (3.4-5.0); ALBUMIN/GLOBULIN RATIO 0.8 (1.0-2.7); ALKALINE PHOSPHATASE 56 U/L (46-116); ANION GAP 5 mmol/L (5-15); ASPARTATE AMINO TRANSFERASE 13 U/L (15-37); BILIRUBIN,TOTAL 0.3 MG/DL (0.2-1.0); BLOOD UREA NITROGEN 42 mg/dL (7-18); CALCIUM 8.9 MG/DL (8.5-10.1); CARBON DIOXIDE 27 MMOL/L (21-32); CHLORIDE 108 MMOL/L (98-107); CHOLESTEROL 155 MG/DL (< 200); CREATININE 1.9 MG/DL (0.55-1.30); FERRITIN 274 NG/ML (8-388); HDL CHOLESTEROL 51 MG/DL (40-60); POTASSIUM 4.9 MMOL/L (3.5-5.1); SODIUM 139 MMOL/L (136-145); TRIGLYCERIDES 271 MG/DL (30-150)
[2017-11-08 08:00] VITALS: BP 123/65
[2017-11-08 08:04] LABS: % IRON SATURATION 31 % (15-50); IRON 70 ug/dL (50-175); TOTAL IRON BINDING CAPACITY 223 ug/dL (250-450)
--- NOTE | 2017-11-08 08:38 | Consultation ---
Consult Note Consult Note asked to eval for renal failure Chief Complaint: Altered Level of Consciousness HPI This patient presents from a care home facility. She has a history of renal failure, hypertension, COPD, CVA with right-sided hemiplegia. History is per medical record and EMS. She presents for altered mental status and an episode of vomiting. There is no other history available. Coded Allergies: LEVOFLOXACIN (Unverified Allergy, Unknown, 10/28/17) MEROPENEM (Unverified Allergy, Unknown, 10/28/17) PENICILLINS (Verified Allergy, Unknown, 03/17/16) Past Medical History: see triage record, HTN, PR, CAD, COPD, GERD, CVA/TIA, psych hx, renal disease Past Medical History: No History, Except For Hx Hypertension: Yes Hx COPD: Yes Hx Gastrointestinal Problems: Yes - gerd Hx Cerebrovascular Accident: Yes Hx Seizures: Yes examined poor historian data reviewed Assessment/Plan Acute renal failure- Hyperkalemia Acute encephalopathy COPD HTN Anemia UTI Adjust BP meds- IV hydration Adjust mind altering meds breathing treatment UTI treatment per orders John Paul Urias MD Nov 08, 2017 08:38
[2017-11-08] MEDS: Pantoprazole Inj IV SCH (08:49)
[2017-11-08] MEDS: Metoprolol 25mg tab ORAL SCH ×4 (08:50→21:00)
[2017-11-08] MEDS: Depakote ER 500mg tab ORAL SCH ×2 (08:50→10:12)
[2017-11-08] MEDS: ARIPiprazole 10mg tab ORAL SCH ×2 (08:50→09:00)
[2017-11-08] MEDS: Heparin 5000 units/ml inj SUBQ SCH ×2 (08:51→21:00)
--- NOTE | 2017-11-08 11:49 | Infectious Diseases Prog Note ---
Assessment/Plan Assessment/Plan 62 yo female who presented to the ED on 11/06/17 from her [facility] with AMS and vomiting. Encephalopathy Resolved Vomiting - Unclear etiology Viral enteritis, Medication, Food toxin? Resolved HTN ND CAD COPD GERD CVA/TIA Psych Hx Renal Disease Plan: Stable continue to monitor off Abx f/u US Monitor CBC and Temps We will continue to follow the patient during this hospitalization. Subjective Allergies: Coded Allergies: LEVOFLOXACIN (Unverified Allergy, Unknown, 10/28/17) MEROPENEM (Unverified Allergy, Unknown, 10/28/17) PENICILLINS (Verified Allergy, Unknown, 03/17/16) Subjective Patient reports feeling well Afebrile Objective Vital Signs Last 24 Hour Vital Signs Date Time Temp Pulse Resp B/P (MAP) Pulse Ox O2 Delivery O2 Flow Rate FiO2 11/08/17 10:33 73 144/70 11/08/17 09:00 Nasal Cannula 3.0 11/08/17 08:00 98.1 78 19 123/65 (84) 100 98.1 11/08/17 06:00 107/56 11/08/17 04:00 97.0 79 18 107/56 (73) 100 97.0 11/08/17 00:00 98.1 80 18 130/70 (90) 97 98.1 11/07/17 21:24 127/70 11/07/17 21:15 82 137/58 11/07/17 21:00 137/58 11/07/17 21:00 Nasal Cannula 3.0 11/07/17 20:00 97.9 82 19 139/66 (90) 98 97.9 11/07/17 16:15 97.7 88 20 127/70 (89) 99 97.7 11/07/17 14:00 115/60 11/07/17 12:00 77 11/07/17 12:00 97.7 81 20 115/60 (78) 98 97.7 Height (Feet): 5 Height (Inches): 4.00 Weight (Pounds): 180 Objective Gen: NAD, well appearing, alert but not fully oriented HEENT: NCAT, MMM, EOMI, PERRL, No Oral lesion, no scleral icterus NECK: full range of motion, supple, no meningismus, No LAD, No JVD LUNGS: CTAB, No W/C, No Accessory muscle use CARDS: RRR, S1, S2, No M/R/G ABD: Soft, NT, ND, No R/G, + BS, No HSM, No Masses : Deferred Ext: C/C/E, Pulses 2+ B/L (DP, Rad) NEURO: A/O x 1 (Name) Appropriate, Strength and Sensation Grossly intact Microbiology Date/Time Source Procedure Growth Status 11/06/17 13:29 Blood Blood Culture - Preliminary NO GROWTH AFTER 24 HOURS Resulted 11/06/17 13:15 Blood Blood Culture - Preliminary NO GROWTH AFTER 24 HOURS Resulted 11/06/17 15:40 Nasal Nares MRSA Culture - Final NO METHICILLIN RESISTANT STAPH AUREUS... Complete 11/07/17 18:15 Urine,Clean Catch Urine Culture - Preliminary Resulted 11/06/17 15:40 Rectum VRE Culture - Final Enterococcus Faecium - Vre Enterococcus Faecalis - Vre Complete 11/06/17 15:40 Rectum - Final NO CARBAPENEM-RESISTANT ENTEROBACTERI... Complete Laboratory Tests Test 11/07/17 18:15 11/08/17 05:20 Urine Color Pale yellow Urine Appearance Clear Urine pH 6.0 (4.5-8.0) Urine Specific [place] 1.020 (1.005-1.035) Urine Protein 3+ (NEGATIVE) H Urine Glucose (UA) Negative (NEGATIVE) Urine Ketones Negative (NEGATIVE) Urine Blood Negative (NEGATIVE) Urine Nitrite Negative (NEGATIVE) Urine Bilirubin Negative (NEGATIVE) Urine Urobilinogen Normal MG/DL (0.0-1.0) Urine Leukocyte Esterase 2+ (NEGATIVE) H Urine RBC 0-2 /HPF (0 - 2) Urine WBC 10-15 /HPF (0 - 2) H Urine Squamous Epithelial Cells Moderate /LPF (NONE/OCC) H Urine Bacteria Few /HPF (NONE) Urine Eosinophils None seen (NONE SEEN) Urine Random Sodium 44 mmol/L (20-110) Urine Potassium Timed 28 mmol/L (12-62) White Blood Count 3.5 K/UL (4.8-10.8) L Red Blood Count 2.91 M/UL (4.20-5.40) L Hemoglobin 9.6 G/DL (12.0-16.0) L Hematocrit 29.2 % (37.0-47.0) L Mean Corpuscular Volume 100 FL (80-99) H Mean Corpuscular Hemoglobin 33.1 PG (27.0-31.0) H Mean Corpuscular Hemoglobin Concent 33.0 G/DL (32.0-36.0) Red Cell Distribution Width 12.5 % (11.6-14.8) Platelet Count 148 K/UL (150-450) L Mean Platelet Volume 6.1 FL (6.5-10.1) L Neutrophils (%) (Auto) 57.0 % (45.0-75.0) Lymphocytes (%) (Auto) 27.5 % (20.0-45.0) Monocytes (%) (Auto) 12.0 % (1.0-10.0) H Eosinophils (%) (Auto) 2.1 % (0.0-3.0) Basophils (%) (Auto) 1.4 % (0.0-2.0) Sodium Level 139 MMOL/L (136-145) Potassium Level 4.9 MMOL/L (3.5-5.1) Chloride Level 108 MMOL/L (98-107) H Carbon Dioxide Level 27 MMOL/L (21-32) Anion Gap 5 mmol/L (5-15) Blood Urea Nitrogen 42 mg/dL (7-18) H Creatinine 1.9 MG/DL (0.55-1.30) H Estimat Glomerular Filtration Rate 26.6 mL/min (>60) Glucose Level 137 MG/DL (74-106) H Hemoglobin A1c 5.4 % (4.3-6.0) Uric Acid 7.5 MG/DL (2.6-7.2) H Calcium Level 8.9 MG/DL (8.5-10.1) Phosphorus Level 3.0 MG/DL (2.5-4.9) Magnesium Level 1.8 MG/DL (1.8-2.4) Iron Level 70 ug/dL (50-175) Total Iron Binding Capacity 223 ug/dL (250-450) L Percent Iron Saturation 31 % (15-50) Unsaturated Iron Binding 153 ug/dL (112-346) Ferritin 274 NG/ML (8-388) Total Bilirubin 0.3 MG/DL (0.2-1.0) Gamma Glutamyl Transpeptidase 17 U/L (5-85) Aspartate Amino Transf (AST/SGOT) 13 U/L (15-37) L Alanine Aminotransferase (ALT/SGPT) 26 U/L (12-78) Alkaline Phosphatase 56 U/L (46-116) Troponin I 0.030 ng/mL (0.000-0.056) Pro-B-Type Natriuretic Peptide 2661 pg/mL (0-125) H Total Protein 6.1 G/DL (6.4-8.2) L Albumin 2.8 G/DL (3.4-5.0) L Globulin 3.3 g/dL Albumin/Globulin Ratio 0.8 (1.0-2.7) L Triglycerides Level 271 MG/DL (30-150) H Cholesterol Level 155 MG/DL (< 200) LDL Cholesterol 59 mg/dL (<100) HDL Cholesterol 51 MG/DL (40-60) Cholesterol/HDL Ratio 3.0 (3.3-4.4) L Carcinoembryonic Antigen Pending Vitamin B12 Level 582 PG/ML (193-986) Folate 14.5 NG/ML (8.6-58.9) Thyroid Stimulating Hormone (TSH) 0.638 uiU/mL (0.358-3.740) Current Medications Medications (Trade) Dose Ordered Sig/Leroy Route PRN Reason Start Time Stop Time Status Last Admin Dose Admin Acetaminophen (Tylenol) 650 mg Q4H PRN ORAL fever 11/07/17 15:15 12/06/17 19:14 Aripiprazole (Abilify) 30 mg DAILY ORAL 11/08/17 09:00 12/07/17 08:59 Chlorhexidine Gluconate (Bryanna-Hex 2%) 1 applic DAILY@2000 TOPIC 11/07/17 20:00 12/06/17 19:59 11/07/17 21:04 Clonidine HCl (Catapres Tab) 0.1 mg Q4H PRN ORAL SBP over 160 11/08/17 09:00 12/08/17 08:59 Dextrose (Dextrose 50%) 25 ml PRN IV Hypoglycemia 11/07/17 14:45 12/06/17 19:14 Dextrose (Dextrose 50%) 50 ml PRN IV hypoglycemia 11/07/17 14:45 12/06/17 19:14 Dextrose/Sodium Chloride 1,000 ml @ 75 mls/hr [id number] IV 11/07/17 14:45 12/06/17 19:04 11/08/17 03:55 Diphenhydramine HCl (Benadryl) 25 mg Q6H PRN ORAL Itching/Pruritis 11/07/17 15:00 12/06/17 14:59 Divalproex Sodium (Depakote ER) 500 mg Q12HR ORAL 11/07/17 21:00 12/06/17 20:59 11/08/17 10:12 Fluoxetine HCl (PROzac) 40 mg DAILY ORAL 11/08/17 09:00 12/07/17 08:59 11/08/17 10:13 Gabapentin (Neurontin) 100 mg TID ORAL 11/07/17 13:00 12/07/17 12:59 11/08/17 10:12 Heparin Sodium (Porcine) (Heparin 5000 units/ml) 5,000 units EVERY 12 HOURS SUBQ 11/07/17 21:00 12/06/17 20:59 Lorazepam (Ativan 2mg/ml 1ml) 1 mg Q4H PRN IV agitation 11/07/17 15:15 11/13/17 19:14 11/08/17 03:53 Metoclopramide HCl (Reglan) 10 mg Q6H PRN IVP severe nausea 11/07/17 15:00 12/06/17 14:59 Metoprolol Tartrate (Lopressor) 25 mg EVERY 12 HOURS ORAL 11/07/17 21:00 12/06/17 20:59 11/08/17 10:33 Nitroglycerin (Ntg) 0.4 mg Q5M X 3 DOSES PRN SL Prn Chest Pain 11/07/17 14:45 12/06/17 19:14 Pantoprazole (Protonix) 40 mg DAILY IV 11/08/17 09:00 12/07/17 08:59 11/08/17 08:49 Polyethylene Glycol (Miralax) 17 gm HSPRN PRN ORAL Constipation 11/07/17 19:15 12/06/17 19:14 Promethazine HCl (Phenergan) 25 mg Q6H PRN IM REFRACTORY SEIZURE 11/07/17 15:00 12/06/17 14:59 Tamsulosin HCl (Flomax) 0.4 mg BEDTIME ORAL 11/07/17 21:00 12/06/17 20:59 11/07/17 21:15 Temazepam (Restoril) 15 mg HSPRN PRN ORAL Insomnia 11/07/17 19:15 11/13/17 19:14 Terry Wagoner MD Nov 08, 2017 11:49
[2017-11-08 12:00] VITALS: BP 124/62
--- NOTE | 2017-11-08 13:46 | Pulmonology Progress Note ---
Assessment/Plan Problems: (1) Acute encephalopathy (2) Renal failure (3) Hyperkalemia (4) COPD (chronic obstructive pulmonary disease) (5) HTN (hypertension) Assessment/Plan npo neuro evaluation check electrolytes monitor BP respiratory treatment check electrolytes Subjective ROS Limited/Unobtainable: No Constitutional: Reports: no symptoms HEENT: Repors: no symptoms Allergies: Coded Allergies: LEVOFLOXACIN (Unverified Allergy, Unknown, 10/28/17) MEROPENEM (Unverified Allergy, Unknown, 10/28/17) PENICILLINS (Verified Allergy, Unknown, 03/17/16) Objective Last 24 Hour Vital Signs Date Time Temp Pulse Resp B/P (MAP) Pulse Ox O2 Delivery O2 Flow Rate FiO2 11/08/17 12:00 97.9 76 18 124/62 (82) 100 97.9 11/08/17 10:33 73 144/70 11/08/17 09:00 Nasal Cannula 3.0 11/08/17 08:00 98.1 78 19 123/65 (84) 100 98.1 11/08/17 06:00 107/56 11/08/17 04:00 97.0 79 18 107/56 (73) 100 97.0 11/08/17 00:00 98.1 80 18 130/70 (90) 97 98.1 11/07/17 21:24 127/70 11/07/17 21:15 82 137/58 11/07/17 21:00 137/58 11/07/17 21:00 Nasal Cannula 3.0 11/07/17 20:00 97.9 82 19 139/66 (90) 98 97.9 11/07/17 16:15 97.7 88 20 127/70 (89) 99 97.7 11/07/17 14:00 115/60 Intake and Output 11/07/17 11/08/17 19:00 07:00 Intake Total 300 ml 480 ml Balance 300 ml 480 ml Intake Oral 480 ml IV Total 300 ml # Voids 1 4 # Bowel Movements 1 General Appearance: WD/WN HEENT: normocephalic Respiratory/Chest: chest wall non-tender, lungs clear, normal breath sounds Cardiovascular: normal peripheral pulses, regular rhythm Abdomen: no scars Extremities: no cyanosis Neurologic/Psychiatric: echocardiography technologist II-XII grossly normal Microbiology Date/Time Source Procedure Growth Status 11/06/17 13:29 Blood Blood Culture - Preliminary NO GROWTH AFTER 24 HOURS Resulted 11/06/17 13:15 Blood Blood Culture - Preliminary NO GROWTH AFTER 24 HOURS Resulted 11/06/17 15:40 Nasal Nares MRSA Culture - Final NO METHICILLIN RESISTANT STAPH AUREUS... Complete 11/07/17 18:15 Urine,Clean Catch Urine Culture - Preliminary Resulted 11/06/17 15:40 Rectum VRE Culture - Final Enterococcus Faecium - Vre Enterococcus Faecalis - Vre Complete 11/06/17 15:40 Rectum - Final NO CARBAPENEM-RESISTANT ENTEROBACTERI... Complete Laboratory Tests 11/07/17 18:15: Urine Color Pale yellow, Urine Appearance Clear, Urine pH 6.0, Urine Specific [place] 1.020, Urine Protein 3+H, Urine Glucose (UA) Negative, Urine Ketones Negative, Urine Blood Negative, Urine Nitrite Negative, Urine Bilirubin Negative , Urine Urobilinogen Normal, Urine Leukocyte Esterase 2+H, Urine RBC 0-2, Urine WBC 10-15H, Urine Squamous Epithelial Cells ModerateH, Urine Bacteria Few, Urine Eosinophils None seen, Urine Random Sodium 44, Urine Potassium Timed 28 11/08/17 05:20: White Blood Count 3.5L, Red Blood Count 2.91L, Hemoglobin 9.6L, Hematocrit 29.2L , Mean Corpuscular Volume 100H, Mean Corpuscular Hemoglobin 33.1H, Mean Corpuscular Hemoglobin Concent 33.0, Red Cell Distribution Width 12.5, Platelet Count 148L, Mean Platelet Volume 6.1L, Neutrophils (%) (Auto) 57.0, Lymphocytes (%) (Auto) 27.5, Monocytes (%) (Auto) 12.0H, Eosinophils (%) (Auto) 2.1, Basophils (%) (Auto) 1.4, Sodium Level 139, Potassium Level 4.9, Chloride Level 108H, Carbon Dioxide Level 27, Anion Gap 5, Blood Urea Nitrogen 42H, Creatinine 1.9H, Estimat Glomerular Filtration Rate 26.6, Glucose Level 137H, Hemoglobin A1c 5.4, Uric Acid 7.5H, Calcium Level 8.9, Phosphorus Level 3.0, Magnesium Level 1.8, Iron Level 70, Total Iron Binding Capacity 223L, Percent Iron Saturation 31, Unsaturated Iron Binding 153, Ferritin 274, Total Bilirubin 0.3, Gamma Glutamyl Transpeptidase 17, Aspartate Amino Transf (AST/SGOT) 13L, Alanine Aminotransferase (ALT/SGPT) 26, Alkaline Phosphatase 56, Troponin I 0.030, Pro-B-Type Natriuretic Peptide 2661H, Total Protein 6.1L, Albumin 2.8L, Globulin 3.3, Albumin/Globulin Ratio 0.8L, Triglycerides Level 271H, Cholesterol Level 155, LDL Cholesterol 59, HDL Cholesterol 51, Cholesterol/HDL Ratio 3.0L, Carcinoembryonic Antigen [Pending], Vitamin B12 Level 582, Folate 14.5, Thyroid Stimulating Hormone (TSH) 0.638 Current Medications Medications (Trade) Dose Ordered Sig/Leroy Route PRN Reason Start Time Stop Time Status Last Admin Dose Admin Acetaminophen (Tylenol) 650 mg Q4H PRN ORAL fever 11/07/17 15:15 12/06/17 19:14 Aripiprazole (Abilify) 30 mg DAILY ORAL 11/08/17 09:00 12/07/17 08:59 Chlorhexidine Gluconate (Bryanna-Hex 2%) 1 applic DAILY@2000 TOPIC 11/07/17 20:00 12/06/17 19:59 11/07/17 21:04 Clonidine HCl (Catapres Tab) 0.1 mg Q4H PRN ORAL SBP over 160 11/08/17 09:00 12/08/17 08:59 Dextrose (Dextrose 50%) 25 ml PRN IV Hypoglycemia 11/07/17 14:45 12/06/17 19:14 Dextrose (Dextrose 50%) 50 ml PRN IV hypoglycemia 11/07/17 14:45 12/06/17 19:14 Dextrose/Sodium Chloride 1,000 ml @ 75 mls/hr [id number] IV 11/07/17 14:45 12/06/17 19:04 11/08/17 03:55 Diphenhydramine HCl (Benadryl) 25 mg Q6H PRN ORAL Itching/Pruritis 11/07/17 15:00 12/06/17 14:59 Divalproex Sodium (Depakote ER) 500 mg Q12HR ORAL 11/07/17 21:00 12/06/17 20:59 11/08/17 10:12 Fluoxetine HCl (PROzac) 40 mg DAILY ORAL 11/08/17 09:00 12/07/17 08:59 11/08/17 10:13 Gabapentin (Neurontin) 100 mg TID ORAL 11/07/17 13:00 12/07/17 12:59 11/08/17 10:12 Heparin Sodium (Porcine) (Heparin 5000 units/ml) 5,000 units EVERY 12 HOURS SUBQ 11/07/17 21:00 12/06/17 20:59 Lorazepam (Ativan 2mg/ml 1ml) 1 mg Q4H PRN IV agitation 11/07/17 15:15 11/13/17 19:14 11/08/17 03:53 Metoclopramide HCl (Reglan) 10 mg Q6H PRN IVP severe nausea 11/07/17 15:00 12/06/17 14:59 Metoprolol Tartrate (Lopressor) 25 mg EVERY 12 HOURS ORAL 11/07/17 21:00 12/06/17 20:59 11/08/17 10:33 Nitroglycerin (Ntg) 0.4 mg Q5M X 3 DOSES PRN SL Prn Chest Pain 11/07/17 14:45 12/06/17 19:14 Pantoprazole (Protonix) 40 mg DAILY IV 11/08/17 09:00 12/07/17 08:59 11/08/17 08:49 Polyethylene Glycol (Miralax) 17 gm HSPRN PRN ORAL Constipation 11/07/17 19:15 12/06/17 19:14 Promethazine HCl (Phenergan) 25 mg Q6H PRN IM REFRACTORY SEIZURE 11/07/17 15:00 12/06/17 14:59 Tamsulosin HCl (Flomax) 0.4 mg BEDTIME ORAL 11/07/17 21:00 12/06/17 20:59 11/07/17 21:15 Temazepam (Restoril) 15 mg HSPRN PRN ORAL Insomnia 11/07/17 19:15 11/13/17 19:14 James Wing MD Nov 08, 2017 13:46
--- NOTE | 2017-11-08 14:06 | General Progress Note ---
Assessment/Plan Problem List: (1) Pancytopenia ICD Codes: D61.818 - Other pancytopenia SNOMED: 604283146 (2) Hyperkalemia ICD Codes: E87.5 - Hyperkalemia SNOMED: 76992623 (3) Renal failure ICD Codes: N19 - Unspecified kidney failure SNOMED: 46464126 (4) Gastroenteritis ICD Codes: K52.9 - Noninfective gastroenteritis and colitis, unspecified SNOMED: 94684397 (5) Altered mental status ICD Codes: R41.82 - Altered mental status, unspecified SNOMED: 830657260 (6) COPD (chronic obstructive pulmonary disease) ICD Codes: J44.9 - Chronic obstructive pulmonary disease, unspecified SNOMED: 80110228 (7) HTN (hypertension) ICD Codes: I10 - Essential (primary) hypertension SNOMED: 20402938 (8) Renal insufficiency ICD Codes: N28.9 - Disorder of kidney and ureter, unspecified SNOMED: 112801191, 781504945 (9) Acute encephalopathy ICD Codes: G93.40 - Encephalopathy, unspecified SNOMED: 45607720, 892416439 Status: unchanged Assessment/Plan ot pt diet abx heme eval cbc bmp am Subjective Constitutional: Reports: weakness Allergies: Coded Allergies: LEVOFLOXACIN (Unverified Allergy, Unknown, 10/28/17) MEROPENEM (Unverified Allergy, Unknown, 10/28/17) PENICILLINS (Verified Allergy, Unknown, 03/17/16) All Systems: reviewed and negative except above Subjective o2nc sleep Objective Last 24 Hour Vital Signs Date Time Temp Pulse Resp B/P (MAP) Pulse Ox O2 Delivery O2 Flow Rate FiO2 11/08/17 12:00 97.9 76 18 124/62 (82) 100 97.9 11/08/17 10:33 73 144/70 11/08/17 09:00 Nasal Cannula 3.0 11/08/17 08:00 98.1 78 19 123/65 (84) 100 98.1 11/08/17 06:00 107/56 11/08/17 04:00 97.0 79 18 107/56 (73) 100 97.0 11/08/17 00:00 98.1 80 18 130/70 (90) 97 98.1 11/07/17 21:24 127/70 11/07/17 21:15 82 137/58 11/07/17 21:00 137/58 11/07/17 21:00 Nasal Cannula 3.0 11/07/17 20:00 97.9 82 19 139/66 (90) 98 97.9 11/07/17 16:15 97.7 88 20 127/70 (89) 99 97.7 Intake and Output 11/07/17 11/08/17 19:00 07:00 Intake Total 300 ml 480 ml Balance 300 ml 480 ml Intake Oral 480 ml IV Total 300 ml # Voids 1 4 # Bowel Movements 1 Laboratory Tests 11/07/17 18:15: Urine Color Pale yellow, Urine Appearance Clear, Urine pH 6.0, Urine Specific [place] 1.020, Urine Protein 3+H, Urine Glucose (UA) Negative, Urine Ketones Negative, Urine Blood Negative, Urine Nitrite Negative, Urine Bilirubin Negative , Urine Urobilinogen Normal, Urine Leukocyte Esterase 2+H, Urine RBC 0-2, Urine WBC 10-15H, Urine Squamous Epithelial Cells ModerateH, Urine Bacteria Few, Urine Eosinophils None seen, Urine Random Sodium 44, Urine Potassium Timed 28 11/08/17 05:20: White Blood Count 3.5L, Red Blood Count 2.91L, Hemoglobin 9.6L, Hematocrit 29.2L , Mean Corpuscular Volume 100H, Mean Corpuscular Hemoglobin 33.1H, Mean Corpuscular Hemoglobin Concent 33.0, Red Cell Distribution Width 12.5, Platelet Count 148L, Mean Platelet Volume 6.1L, Neutrophils (%) (Auto) 57.0, Lymphocytes (%) (Auto) 27.5, Monocytes (%) (Auto) 12.0H, Eosinophils (%) (Auto) 2.1, Basophils (%) (Auto) 1.4, Sodium Level 139, Potassium Level 4.9, Chloride Level 108H, Carbon Dioxide Level 27, Anion Gap 5, Blood Urea Nitrogen 42H, Creatinine 1.9H, Estimat Glomerular Filtration Rate 26.6, Glucose Level 137H, Hemoglobin A1c 5.4, Uric Acid 7.5H, Calcium Level 8.9, Phosphorus Level 3.0, Magnesium Level 1.8, Iron Level 70, Total Iron Binding Capacity 223L, Percent Iron Saturation 31, Unsaturated Iron Binding 153, Ferritin 274, Total Bilirubin 0.3, Gamma Glutamyl Transpeptidase 17, Aspartate Amino Transf (AST/SGOT) 13L, Alanine Aminotransferase (ALT/SGPT) 26, Alkaline Phosphatase 56, Troponin I 0.030, Pro-B-Type Natriuretic Peptide 2661H, Total Protein 6.1L, Albumin 2.8L, Globulin 3.3, Albumin/Globulin Ratio 0.8L, Triglycerides Level 271H, Cholesterol Level 155, LDL Cholesterol 59, HDL Cholesterol 51, Cholesterol/HDL Ratio 3.0L, Carcinoembryonic Antigen [Pending], Vitamin B12 Level 582, Folate 14.5, Thyroid Stimulating Hormone (TSH) 0.638 Height (Feet): 5 Height (Inches): 4.00 Weight (Pounds): 180 General Appearance: lethargic EENT: normal ENT inspection Neck: normal alignment Cardiovascular: normal peripheral pulses, normal rate, regular rhythm Respiratory/Chest: chest wall non-tender, lungs clear, normal breath sounds Abdomen: normal bowel sounds, non tender, soft Extremities: normal inspection Edema: no edema noted Arm (L), no edema noted Arm (R), no edema noted Leg (L), no edema noted Leg (R), no edema noted Pedal (L), no edema noted Pedal (R), no edema noted Generalized Neurologic: motor weakness Skin: normal pigmentation, warm/dry Vance Armstrong DO Nov 08, 2017 14:06
--- NOTE | 2017-11-08 14:33 | GI Progress Note ---
Assessment/Plan Problems: (1) Fatty liver, alcoholic ICD Codes: K70.0 - Alcoholic fatty liver SNOMED: 29995905 (2) Acute encephalopathy ICD Codes: G93.40 - Encephalopathy, unspecified SNOMED: 41502155, 214478188 (3) Altered mental status ICD Codes: R41.82 - Altered mental status, unspecified SNOMED: 134075824 (4) Gastroenteritis ICD Codes: K52.9 - Noninfective gastroenteritis and colitis, unspecified SNOMED: 04973724 (5) Pancytopenia ICD Codes: D61.818 - Other pancytopenia SNOMED: 864828205 (6) Vomiting ICD Codes: R11.10 - Vomiting, unspecified SNOMED: 935849558 Status: unchanged Status Narrative Discussed with Dr. Bassett. Assessment/Plan Head CT reviewed >> Large remote infarct centered in the right occipital lobe/ right [place] SETTER territory. anemia work up reviewed placed NPO for lethargy. defer GI procedures, fu neurology supportive care electrolyte correction OB stool r/o GI bleed monitor H&H, prn transfusions bowel regime ppi zofran prn fu labs The patient was seen and examined at bedside and all new and available data was reviewed in the patients chart. I agree with the above findings, impression and plan. (Patient seen earlier today. Signature stamp does not reflect patient encounter time.). - Rashid Bassett MD Subjective Subjective limited Objective Last 24 Hour Vital Signs Date Time Temp Pulse Resp B/P (MAP) Pulse Ox O2 Delivery O2 Flow Rate FiO2 11/08/17 12:00 97.9 76 18 124/62 (82) 100 97.9 11/08/17 10:33 73 144/70 11/08/17 09:00 Nasal Cannula 3.0 11/08/17 08:00 98.1 78 19 123/65 (84) 100 98.1 11/08/17 06:00 107/56 11/08/17 04:00 97.0 79 18 107/56 (73) 100 97.0 11/08/17 00:00 98.1 80 18 130/70 (90) 97 98.1 11/07/17 21:24 127/70 11/07/17 21:15 82 137/58 11/07/17 21:00 137/58 11/07/17 21:00 Nasal Cannula 3.0 11/07/17 20:00 97.9 82 19 139/66 (90) 98 97.9 11/07/17 16:15 97.7 88 20 127/70 (89) 99 97.7 Intake and Output 11/07/17 11/08/17 19:00 07:00 Intake Total 300 ml 480 ml Balance 300 ml 480 ml Intake Oral 480 ml IV Total 300 ml # Voids 1 4 # Bowel Movements 1 Laboratory Tests Test 11/07/17 18:15 11/08/17 05:20 Urine Color Pale yellow Urine Appearance Clear Urine pH 6.0 (4.5-8.0) Urine Specific [place] 1.020 (1.005-1.035) Urine Protein 3+ (NEGATIVE) H Urine Glucose (UA) Negative (NEGATIVE) Urine Ketones Negative (NEGATIVE) Urine Blood Negative (NEGATIVE) Urine Nitrite Negative (NEGATIVE) Urine Bilirubin Negative (NEGATIVE) Urine Urobilinogen Normal MG/DL (0.0-1.0) Urine Leukocyte Esterase 2+ (NEGATIVE) H Urine RBC 0-2 /HPF (0 - 2) Urine WBC 10-15 /HPF (0 - 2) H Urine Squamous Epithelial Cells Moderate /LPF (NONE/OCC) H Urine Bacteria Few /HPF (NONE) Urine Eosinophils None seen (NONE SEEN) Urine Random Sodium 44 mmol/L (20-110) Urine Potassium Timed 28 mmol/L (12-62) White Blood Count 3.5 K/UL (4.8-10.8) L Red Blood Count 2.91 M/UL (4.20-5.40) L Hemoglobin 9.6 G/DL (12.0-16.0) L Hematocrit 29.2 % (37.0-47.0) L Mean Corpuscular Volume 100 FL (80-99) H Mean Corpuscular Hemoglobin 33.1 PG (27.0-31.0) H Mean Corpuscular Hemoglobin Concent 33.0 G/DL (32.0-36.0) Red Cell Distribution Width 12.5 % (11.6-14.8) Platelet Count 148 K/UL (150-450) L Mean Platelet Volume 6.1 FL (6.5-10.1) L Neutrophils (%) (Auto) 57.0 % (45.0-75.0) Lymphocytes (%) (Auto) 27.5 % (20.0-45.0) Monocytes (%) (Auto) 12.0 % (1.0-10.0) H Eosinophils (%) (Auto) 2.1 % (0.0-3.0) Basophils (%) (Auto) 1.4 % (0.0-2.0) Sodium Level 139 MMOL/L (136-145) Potassium Level 4.9 MMOL/L (3.5-5.1) Chloride Level 108 MMOL/L (98-107) H Carbon Dioxide Level 27 MMOL/L (21-32) Anion Gap 5 mmol/L (5-15) Blood Urea Nitrogen 42 mg/dL (7-18) H Creatinine 1.9 MG/DL (0.55-1.30) H Estimat Glomerular Filtration Rate 26.6 mL/min (>60) Glucose Level 137 MG/DL (74-106) H Hemoglobin A1c 5.4 % (4.3-6.0) Uric Acid 7.5 MG/DL (2.6-7.2) H Calcium Level 8.9 MG/DL (8.5-10.1) Phosphorus Level 3.0 MG/DL (2.5-4.9) Magnesium Level 1.8 MG/DL (1.8-2.4) Iron Level 70 ug/dL (50-175) Total Iron Binding Capacity 223 ug/dL (250-450) L Percent Iron Saturation 31 % (15-50) Unsaturated Iron Binding 153 ug/dL (112-346) Ferritin 274 NG/ML (8-388) Total Bilirubin 0.3 MG/DL (0.2-1.0) Gamma Glutamyl Transpeptidase 17 U/L (5-85) Aspartate Amino Transf (AST/SGOT) 13 U/L (15-37) L Alanine Aminotransferase (ALT/SGPT) 26 U/L (12-78) Alkaline Phosphatase 56 U/L (46-116) Troponin I 0.030 ng/mL (0.000-0.056) Pro-B-Type Natriuretic Peptide 2661 pg/mL (0-125) H Total Protein 6.1 G/DL (6.4-8.2) L Albumin 2.8 G/DL (3.4-5.0) L Globulin 3.3 g/dL Albumin/Globulin Ratio 0.8 (1.0-2.7) L Triglycerides Level 271 MG/DL (30-150) H Cholesterol Level 155 MG/DL (< 200) LDL Cholesterol 59 mg/dL (<100) HDL Cholesterol 51 MG/DL (40-60) Cholesterol/HDL Ratio 3.0 (3.3-4.4) L Carcinoembryonic Antigen Pending Vitamin B12 Level 582 PG/ML (193-986) Folate 14.5 NG/ML (8.6-58.9) Thyroid Stimulating Hormone (TSH) 0.638 uiU/mL (0.358-3.740) Microbiology Date/Time Source Procedure Growth Status 11/07/17 18:15 Urine,Clean Catch Urine Culture - Preliminary Resulted Height (Feet): 5 Height (Inches): 4.00 Weight (Pounds): 180 General Appearance: lethargic Cardiovascular: normal rate Respiratory/Chest: normal breath sounds, no respiratory distress Abdominal Exam: normal bowel sounds, non tender, soft Hector Combs NP Nov 08, 2017 14:33
[2017-11-08 16:00] VITALS: BP 146/68
[2017-11-08 20:00] VITALS: BP 132/76
[2017-11-08] MEDS: Dyna-Hex 2% Top Sol 2oz TOPIC SCH (20:00)
[2017-11-08] MEDS: Tamsulosin 0.4mg cap ORAL SCH (21:00)
[2017-11-08] MEDS: Valproate Sodium INJ 500 MG in D5W 55 ML IVPB SCH (21:02)
--- NOTE | 2017-11-09 01:45 | Progress Note ---
DATE: 11/08/2017 SUBJECTIVE: This is a 62-year-old female patient with altered mental status and GI pain. The patient still continues to have altered mental status and confusion, worsened by stress of her medical illness. She has multiple complaints , but still has altered mental status, nevertheless and that is why there is a daily psychiatric consultation on this patient. She has mood lability and agitation improved, and that is why, her attending has requested daily psychiatric consultation. . MENTAL STATUS EXAMINATION: This is a 62-year-old female. Appearance is disheveled. Attitude, irritable and agitated. Affect, guarded and restricted. Intellect poor. Mood is depressed and anxious. Motor activity, psychomotor agitation. Attention span is poor. Orientation x2. Speech is pressured. Thought process, disorganized and illogical. Thought content, auditory hallucinations and paranoid delusions. Insight and judgment is poor. DIAGNOSIS: Schizoaffective, bipolar type. PLAN: Plan for this patient is to treat her with Abilify 30 mg p.o. daily, Prozac 40 mg daily, ibuprofen 600 mg q.12 h. and provided 20 minutes of cognitive behavior therapy to identify her automatic negative thoughts and help her to convert those to more positive thoughts to reduce depression and suicidality. Also Neurontin 100 mg three times a day. Chart was reviewed. Discussed with staff. Seen and assessed in her room. Ayad Khan M.D. DR: ALY JOB#: [id number] CC:
[2017-11-09] MEDS: LORazepam Inj 2mg/ml 1ml IV PRN ×2 (02:41→06:37)
[2017-11-09 04:00] VITALS: BP 156/97
[2017-11-09 06:35] LABS: BASOPHILS % (AUTO) 1.1 % (0.0-2.0); EOSINOPHILS % (AUTO) 2.7 % (0.0-3.0); HEMATOCRIT 29.9 % (37.0-47.0); HEMOGLOBIN 9.9 G/DL (12.0-16.0); LYMPHOCYTES % (AUTO) 28.6 % (20.0-45.0); MEAN CORPUSCULAR VOLUME 99 FL (80-99); MONOCYTES % (AUTO) 14.7 % (1.0-10.0); NEUTROPHILS % (AUTO) 52.9 % (45.0-75.0); PLATELET COUNT 136 K/UL (150-450); RED BLOOD COUNT 3.02 M/UL (4.20-5.40); RED CELL DISTRIBUTION WIDTH 12.2 % (11.6-14.8); WHITE BLOOD COUNT 4.4 K/UL (4.8-10.8)
[2017-11-09] MEDS: D5 1/2NS 1,000 ML IV SCH ×2 (06:45→10:31)
[2017-11-09 06:56] LABS: ALANINE AMINOTRANSFERASE 30 U/L (12-78); ALBUMIN/GLOBULIN RATIO 0.8 (1.0-2.7); ALKALINE PHOSPHATASE 61 U/L (46-116); ANION GAP 6 mmol/L (5-15); ASPARTATE AMINO TRANSFERASE 10 U/L (15-37); BILIRUBIN,TOTAL 0.3 MG/DL (0.2-1.0); BLOOD UREA NITROGEN 27 mg/dL (7-18); CALCIUM 9.6 MG/DL (8.5-10.1); CARBON DIOXIDE 26 MMOL/L (21-32); CHLORIDE 109 MMOL/L (98-107); CREATININE 1.5 MG/DL (0.55-1.30); PHOSPHORUS 2.2 MG/DL (2.5-4.9); POTASSIUM 4.8 MMOL/L (3.5-5.1); SODIUM 141 MMOL/L (136-145)
[2017-11-09 08:00] VITALS: BP 157/74
[2017-11-09] MEDS: Heparin 5000 units/ml inj SUBQ SCH ×3 (09:00→20:37)
--- NOTE | 2017-11-09 09:18 | Infectious Diseases Prog Note ---
Assessment/Plan Assessment/Plan 62 yo female who [facility] the [facility] with [facility] and vomiting. Encephalopathy Resolved Vomiting - Unclear etiology Viral enteritis, Medication, Food toxin? Resolved Bacteriuria - Infection unlikely UCx - Strep and GNR (Low levels) 11/06 - UA neg HTN ND CAD COPD GERD CVA/TIA Psych Hx Renal Disease Plan: Clinically stable continue to monitor off Abx f/u US Monitor CBC and Temps We will continue to follow the patient during this hospitalization. Subjective Allergies: Coded Allergies: LEVOFLOXACIN (Unverified Allergy, Unknown, 10/28/17) MEROPENEM (Unverified Allergy, Unknown, 10/28/17) PENICILLINS (Verified Allergy, Unknown, 03/17/16) Subjective Agitated last night. Got Ativan this AM Afebrile Objective Vital Signs Last 24 Hour Vital Signs Date Time Temp Pulse Resp B/P (MAP) Pulse Ox O2 Delivery O2 Flow Rate FiO2 11/09/17 04:00 97.2 100 21 156/97 (116) 98 97.2 11/08/17 21:00 Nasal Cannula 3.0 11/08/17 20:00 97.2 91 22 132/76 (94) 100 97.2 11/08/17 16:00 97.7 77 20 146/68 (94) 100 97.7 11/08/17 12:00 97.9 76 18 124/62 (82) 100 97.9 11/08/17 10:33 73 144/70 Height (Feet): 5 Height (Inches): 4.00 Weight (Pounds): 210 Objective Gen: NAD, well appearing HEENT: NCAT, MMM, no scleral icterus LUNGS: CTAB, No W/C, No Accessory muscle use CARDS: RRR, S1, S2, No M/R/G ABD: Soft, ND, No R/G, + BS, No HSM, No Masses Ext: C/C/E, Pulses 2+ B/L (DP, Rad) NEURO: Sleeping, Microbiology Date/Time Source Procedure Growth Status 11/06/17 13:29 Blood Blood Culture - Preliminary NO GROWTH AFTER 48 HOURS Resulted 11/06/17 13:15 Blood Blood Culture - Preliminary NO GROWTH AFTER 48 HOURS Resulted 11/06/17 15:40 Nasal Nares MRSA Culture - Final NO METHICILLIN RESISTANT STAPH AUREUS... Complete 11/07/17 18:15 Urine,Clean Catch Urine Culture - Preliminary Gram Negative Bacillus 1 Streptococcus Species Resulted 11/06/17 15:40 Rectum VRE Culture - Final Enterococcus Faecium - Vre Enterococcus Faecalis - Vre Complete 11/06/17 15:40 Rectum - Final NO CARBAPENEM-RESISTANT ENTEROBACTERI... Complete Laboratory Tests Test 11/09/17 05:10 White Blood Count 4.4 K/UL (4.8-10.8) L Red Blood Count 3.02 M/UL (4.20-5.40) L Hemoglobin 9.9 G/DL (12.0-16.0) L Hematocrit 29.9 % (37.0-47.0) L Mean Corpuscular Volume 99 FL (80-99) Mean Corpuscular Hemoglobin 32.8 PG (27.0-31.0) H Mean Corpuscular Hemoglobin Concent 33.1 G/DL (32.0-36.0) Red Cell Distribution Width 12.2 % (11.6-14.8) Platelet Count 136 K/UL (150-450) L Mean Platelet Volume 5.4 FL (6.5-10.1) L Neutrophils (%) (Auto) 52.9 % (45.0-75.0) Lymphocytes (%) (Auto) 28.6 % (20.0-45.0) Monocytes (%) (Auto) 14.7 % (1.0-10.0) H Eosinophils (%) (Auto) 2.7 % (0.0-3.0) Basophils (%) (Auto) 1.1 % (0.0-2.0) Sodium Level 141 MMOL/L (136-145) Potassium Level 4.8 MMOL/L (3.5-5.1) Chloride Level 109 MMOL/L (98-107) H Carbon Dioxide Level 26 MMOL/L (21-32) Anion Gap 6 mmol/L (5-15) Blood Urea Nitrogen 27 mg/dL (7-18) H Creatinine 1.5 MG/DL (0.55-1.30) H Estimat Glomerular Filtration Rate 34.9 mL/min (>60) Glucose Level 97 MG/DL (74-106) Calcium Level 9.6 MG/DL (8.5-10.1) Phosphorus Level 2.2 MG/DL (2.5-4.9) L Magnesium Level 1.6 MG/DL (1.8-2.4) L Total Bilirubin 0.3 MG/DL (0.2-1.0) Aspartate Amino Transf (AST/SGOT) 10 U/L (15-37) L Alanine Aminotransferase (ALT/SGPT) 30 U/L (12-78) Alkaline Phosphatase 61 U/L (46-116) C-Reactive Protein, Quantitative 1.3 mg/dL (0.00-0.90) H Pro-B-Type Natriuretic Peptide 4596 pg/mL (0-125) H Total Protein 6.7 G/DL (6.4-8.2) Albumin 3.0 G/DL (3.4-5.0) L Globulin 3.7 g/dL Albumin/Globulin Ratio 0.8 (1.0-2.7) L Valproic Acid (Depakene) Level 35 MCG/ML (50-100) L Current Medications Medications (Trade) Dose Ordered Sig/Leroy Route PRN Reason Start Time Stop Time Status Last Admin Dose Admin Acetaminophen (Tylenol) 650 mg Q4H PRN ORAL fever 11/07/17 15:15 12/06/17 19:14 Aripiprazole (Abilify) 30 mg DAILY ORAL 11/08/17 09:00 12/07/17 08:59 Chlorhexidine Gluconate (Bryanna-Hex 2%) 1 applic DAILY@2000 TOPIC 11/07/17 20:00 12/06/17 19:59 11/07/17 21:04 Clonidine HCl (Catapres Tab) 0.1 mg Q4H PRN ORAL SBP over 160 11/08/17 09:00 12/08/17 08:59 Dextrose (Dextrose 50%) 25 ml PRN IV Hypoglycemia 11/07/17 14:45 12/06/17 19:14 Dextrose (Dextrose 50%) 50 ml PRN IV hypoglycemia 11/07/17 14:45 12/06/17 19:14 Dextrose/Sodium Chloride 1,000 ml @ 75 mls/hr [id number] IV 11/07/17 14:45 12/06/17 19:04 11/08/17 17:28 Diphenhydramine HCl (Benadryl) 25 mg Q6H PRN ORAL Itching/Pruritis 11/07/17 15:00 12/06/17 14:59 Fluoxetine HCl (PROzac) 40 mg DAILY ORAL 11/08/17 09:00 12/07/17 08:59 11/08/17 10:13 Gabapentin (Neurontin) 100 mg TID ORAL 11/07/17 13:00 12/07/17 12:59 11/08/17 10:12 Heparin Sodium (Porcine) (Heparin 5000 units/ml) 5,000 units EVERY 12 HOURS SUBQ 11/07/17 21:00 12/06/17 20:59 Lorazepam (Ativan 2mg/ml 1ml) 1 mg Q4H PRN IV agitation 11/07/17 15:15 11/13/17 19:14 11/09/17 06:37 Metoclopramide HCl (Reglan) 10 mg Q6H PRN IVP severe nausea 11/07/17 15:00 12/06/17 14:59 Metoprolol Tartrate (Lopressor) 25 mg EVERY 12 HOURS ORAL 11/07/17 21:00 12/06/17 20:59 11/08/17 10:33 Nitroglycerin (Ntg) 0.4 mg Q5M X 3 DOSES PRN SL Prn Chest Pain 11/07/17 14:45 12/06/17 19:14 Pantoprazole (Protonix) 40 mg DAILY IV 11/08/17 09:00 12/07/17 08:59 11/08/17 08:49 Polyethylene Glycol (Miralax) 17 gm HSPRN PRN ORAL Constipation 11/07/17 19:15 12/06/17 19:14 Promethazine HCl (Phenergan) 25 mg Q6H PRN IM REFRACTORY SEIZURE 11/07/17 15:00 12/06/17 14:59 Tamsulosin HCl (Flomax) 0.4 mg BEDTIME ORAL 11/07/17 21:00 12/06/17 20:59 11/07/17 21:15 Temazepam (Restoril) 15 mg HSPRN PRN ORAL Insomnia 11/07/17 19:15 11/13/17 19:14 Valproate Sodium 500 mg/Dextrose 60 ml @ 60 mls/hr Q12HR IVPB 11/08/17 21:00 12/08/17 20:59 11/08/17 21:02 Terry Wagoner MD Nov 09, 2017 09:18
[2017-11-09] MEDS: ARIPiprazole 10mg tab ORAL SCH (10:12)
[2017-11-09] MEDS: Metoprolol 25mg tab ORAL SCH (10:13)
[2017-11-09] MEDS: Pantoprazole Inj IV SCH (10:13)
[2017-11-09] MEDS: Valproate Sodium INJ 500 MG in D5W 55 ML IVPB SCH ×2 (10:32→21:00)
--- NOTE | 2017-11-09 10:49 | GI Progress Note ---
Assessment/Plan Problems: (1) Fatty liver, alcoholic ICD Codes: K70.0 - Alcoholic fatty liver SNOMED: 64321493 (2) Acute encephalopathy ICD Codes: G93.40 - Encephalopathy, unspecified SNOMED: 98739197, 776710067 (3) Altered mental status ICD Codes: R41.82 - Altered mental status, unspecified SNOMED: 793940419 (4) Gastroenteritis ICD Codes: K52.9 - Noninfective gastroenteritis and colitis, unspecified SNOMED: 90658485 (5) Pancytopenia ICD Codes: D61.818 - Other pancytopenia SNOMED: 291644881 (6) Vomiting ICD Codes: R11.10 - Vomiting, unspecified SNOMED: 020895599 Status: unchanged Status Narrative Discussed with Dr. Bassett. Assessment/Plan Head CT reviewed >> Large remote infarct centered in the right occipital lobe/ right [place] CUTTER territory. anemia work up reviewed placed NPO, unable to participate with ST evaluation defer GI procedures, fu neurology supportive care electrolyte correction OB stool r/o GI bleed monitor H&H, prn transfusions bowel regime ppi zofran prn fu labs The patient was seen and examined at bedside and all new and available data was reviewed in the patients chart. I agree with the above findings, impression and plan. (Patient seen earlier today. Signature stamp does not reflect patient encounter time.). - Rashid Bassett MD Subjective Subjective limited Objective Last 24 Hour Vital Signs Date Time Temp Pulse Resp B/P (MAP) Pulse Ox O2 Delivery O2 Flow Rate FiO2 11/09/17 10:13 104 157/74 11/09/17 09:00 Nasal Cannula 3.0 11/09/17 08:00 97.3 104 24 157/74 (101) 97 97.3 11/09/17 04:00 97.2 100 21 156/97 (116) 98 97.2 11/08/17 21:00 Nasal Cannula 3.0 11/08/17 20:00 97.2 91 22 132/76 (94) 100 97.2 11/08/17 16:00 97.7 77 20 146/68 (94) 100 97.7 11/08/17 12:00 97.9 76 18 124/62 (82) 100 97.9 Intake and Output 11/08/17 11/09/17 19:00 07:00 Intake Total 925 ml 900 ml Output Total 500 ml Balance 425 ml 900 ml Intake Oral 25 ml IV Total 900 ml 900 ml Output Urine Total 500 ml # Voids 1 3 Laboratory Tests Test 11/09/17 05:10 White Blood Count 4.4 K/UL (4.8-10.8) L Red Blood Count 3.02 M/UL (4.20-5.40) L Hemoglobin 9.9 G/DL (12.0-16.0) L Hematocrit 29.9 % (37.0-47.0) L Mean Corpuscular Volume 99 FL (80-99) Mean Corpuscular Hemoglobin 32.8 PG (27.0-31.0) H Mean Corpuscular Hemoglobin Concent 33.1 G/DL (32.0-36.0) Red Cell Distribution Width 12.2 % (11.6-14.8) Platelet Count 136 K/UL (150-450) L Mean Platelet Volume 5.4 FL (6.5-10.1) L Neutrophils (%) (Auto) 52.9 % (45.0-75.0) Lymphocytes (%) (Auto) 28.6 % (20.0-45.0) Monocytes (%) (Auto) 14.7 % (1.0-10.0) H Eosinophils (%) (Auto) 2.7 % (0.0-3.0) Basophils (%) (Auto) 1.1 % (0.0-2.0) Sodium Level 141 MMOL/L (136-145) Potassium Level 4.8 MMOL/L (3.5-5.1) Chloride Level 109 MMOL/L (98-107) H Carbon Dioxide Level 26 MMOL/L (21-32) Anion Gap 6 mmol/L (5-15) Blood Urea Nitrogen 27 mg/dL (7-18) H Creatinine 1.5 MG/DL (0.55-1.30) H Estimat Glomerular Filtration Rate 34.9 mL/min (>60) Glucose Level 97 MG/DL (74-106) Calcium Level 9.6 MG/DL (8.5-10.1) Phosphorus Level 2.2 MG/DL (2.5-4.9) L Magnesium Level 1.6 MG/DL (1.8-2.4) L Total Bilirubin 0.3 MG/DL (0.2-1.0) Aspartate Amino Transf (AST/SGOT) 10 U/L (15-37) L Alanine Aminotransferase (ALT/SGPT) 30 U/L (12-78) Alkaline Phosphatase 61 U/L (46-116) C-Reactive Protein, Quantitative 1.3 mg/dL (0.00-0.90) H Pro-B-Type Natriuretic Peptide 4596 pg/mL (0-125) H Total Protein 6.7 G/DL (6.4-8.2) Albumin 3.0 G/DL (3.4-5.0) L Globulin 3.7 g/dL Albumin/Globulin Ratio 0.8 (1.0-2.7) L Valproic Acid (Depakene) Level 35 MCG/ML (50-100) L Height (Feet): 5 Height (Inches): 4.00 Weight (Pounds): 210 General Appearance: WD/WN, no apparent distress, alert, confused Cardiovascular: normal rate Respiratory/Chest: normal breath sounds, no respiratory distress Abdominal Exam: normal bowel sounds, non tender, soft Extremities: non-tender Hector Combs NP Nov 09, 2017 10:49
--- NOTE | 2017-11-09 10:56 | Consultation ---
Consult Note Consult Note Hematology Consultation Date patient seen: Nov 09, 2017 Chief Complaint: Altered Level of Consciousness Reason for Consultation: Anemia REQ MD: Destiny Armstrong Present Illness HPI Ms May is a 62 yo female who presented to the ED on 11/06/17 from her assisted with AMS and vomiting. Per the nursing notes that patient had vomited the night before admission and then the patient was somnolent in the AM but arrousable is shaken. In the ED she was Afebrile with no leukocytosis and her UA was not impressive for infection. She was in the ED 9 days ago having hallucinations and a UTI. She mental status at that time was A/O x 4 per notes. ID was consulted for gastroenteritis. Today the patient is awake and would like to go back to her assisted. She know her name and that she is in the hospital. She says that she vomited once but has not vomited since. She denies F /C, HALL, SOB, CP, Abd Pain, Current N/V/D and dysuria Currently hgb is improved s/p blood transfusion, no evidence of hemolysis, no bleeding at this time, is eating puree. PMHx/PSHx HTN DE CAD COPD GERD CVA/TIA Psych Hx Renal Disease SocHx No E/T/D FamHx Non-contributory Allergies: Coded Allergies: LEVOFLOXACIN (Unverified Allergy, Unknown, 10/28/17) MEROPENEM (Unverified Allergy, Unknown, 10/28/17) PENICILLINS (Verified Allergy, Unknown, 03/17/16) Medication History Scheduled Aripiprazole* (Abilify*), 30 MG ORAL HS, (Reported) Ascorbic Acid* (Vitamin C*), 500 MG ORAL DAILY, (Reported) Aspirin* (Aspirin*), 81 MG ORAL DAILY, (Reported) Aspirin* (Aspir 81*), 81 MG ORAL DAILY, (Reported) Atorvastatin (Lipitor), 80 MG ORAL BEDTIME, (Reported) Atorvastatin Calcium* (Lipitor*), 10 MG ORAL BEDTIME, (Reported) Baclofen* (Baclofen*), 10 MG ORAL THREE TIMES A DAY, (Reported) Cephalexin* (Keflex*), 500 MG ORAL TID Cholecalciferol (Vitamin D3)* (Vitamin D*), 1,000 UNIT ORAL DAILY, (Reported) Clonidine Hcl* (Catapres*), 0.1 MG ORAL EVERY 8 HOURS, (Reported) Divalproex Sodium (Divalproex Sodium Er), 500 MG PO Q12HR, (Reported) Fenofibrate (Fenofibrate), 54 MG ORAL DAILY, (Reported) Ferric Subsulfate (Ferric Subsulfate), 325 GM MC DAILY, (Reported) Fluoxetine Hcl* (Prozac*), 40 MG ORAL DAILY, (Reported) Furosemide* (Lasix*), 40 MG ORAL DAILY, (Reported) Gabapentin (Neurontin), 100 MG ORAL TID, (Reported) Gabapentin* (Gabapentin*), 100 MG ORAL THREE TIMES A DAY, (Reported) Hydralazine HCl (Hydralazine HCl), 25 MG PO Q12HR, (Reported) Ibuprofen* (Motrin*), 600 MG ORAL FOUR TIMES A DAY, (Reported) Metoprolol Tartrate* (Metoprolol Tartrate*), 25 MG ORAL EVERY 12 HOURS, ( Reported) Multivitamin With Minerals (Multivitamins With Minerals*), 1 TAB ORAL DAILY, ( Reported) Nitroglycerin (Nitroglycerin), 0.4 MG SL X3, (Reported) Tamsulosin Hcl (Tamsulosin Hcl*), 0.4 MG ORAL BEDTIME, (Reported) Scheduled PRN Acetaminophen* (Acetaminophen 325MG Tablet*), 650 MG ORAL Q6H PRN for For Pain, (Reported) Diphenhydramine Hcl* (Benadryl*), 50 MG ORAL Q6H PRN for Itching, (Reported) Hydrocodone/Acetaminophen 5-325* (Hydrocodone/Acetaminophen 5-325*), 1 TAB ORAL Q4H PRN for For Pain, (Reported) Ibuprofen* (Motrin*), 400 MG ORAL Q 6HOURS PRN for Pain Scale (3-5), (Reported) Miscellaneous Medications Magnesium Oxide (Mag-Oxide), 400 MG PO, (Reported) Patient History Healthcare decision maker N Resuscitation status Full Code Advanced Directive on File Review of Systems All Other Systems: negative except mentioned in HPI Physical Exam Last 24 Hour Vital Signs Date Time Temp Pulse Resp B/P (MAP) Pulse Ox O2 Delivery O2 Flow Rate FiO2 11/09/17 10:13 104 157/74 11/09/17 09:00 Nasal Cannula 3.0 9/20/18 08:00 97.3 104 24 157/74 (101) 97 97.3 11/09/17 04:00 97.2 100 21 156/97 (116) 98 97.2 11/08/17 21:00 Nasal Cannula 3.0 11/08/17 20:00 97.2 91 22 132/76 (94) 100 97.2 11/08/17 16:00 97.7 77 20 146/68 (94) 100 97.7 11/08/17 12:00 97.9 76 18 124/62 (82) 100 97.9 Gen: NAD, well appearing, alert but not fully oriented HEENT: NCAT, MMM, EOMI, PERRL, No Oral lesion NECK: full range of motion, supple, no meningismus LUNGS: CTAB, No W/C, No Accessory muscle use CARDS: RRR, S1, S2, No M/R/G ABD: Soft, NT, ND, No R/G, + BS, No HSM : Deferred Ext: C/C/E, Pulses 2+ B/L (DP, Rad) NEURO: A/O x 1 (Name) Appropriate PSYCH: mood/affect normal SKIN: warm/dry, No rashes, Laboratory Tests Test 11/09/17 05:10 White Blood Count 4.4 K/UL (4.8-10.8) L Red Blood Count 3.02 M/UL (4.20-5.40) L Hemoglobin 9.9 G/DL (12.0-16.0) L Hematocrit 29.9 % (37.0-47.0) L Mean Corpuscular Volume 99 FL (80-99) Mean Corpuscular Hemoglobin 32.8 PG (27.0-31.0) H Mean Corpuscular Hemoglobin Concent 33.1 G/DL (32.0-36.0) Red Cell Distribution Width 12.2 % (11.6-14.8) Platelet Count 136 K/UL (150-450) L Mean Platelet Volume 5.4 FL (6.5-10.1) L Neutrophils (%) (Auto) 52.9 % (45.0-75.0) Lymphocytes (%) (Auto) 28.6 % (20.0-45.0) Monocytes (%) (Auto) 14.7 % (1.0-10.0) H Eosinophils (%) (Auto) 2.7 % (0.0-3.0) Basophils (%) (Auto) 1.1 % (0.0-2.0) Sodium Level 141 MMOL/L (136-145) Potassium Level 4.8 MMOL/L (3.5-5.1) Chloride Level 109 MMOL/L (98-107) H Carbon Dioxide Level 26 MMOL/L (21-32) Anion Gap 6 mmol/L (5-15) Blood Urea Nitrogen 27 mg/dL (7-18) H Creatinine 1.5 MG/DL (0.55-1.30) H Estimat Glomerular Filtration Rate 34.9 mL/min (>60) Glucose Level 97 MG/DL (74-106) Calcium Level 9.6 MG/DL (8.5-10.1) Phosphorus Level 2.2 MG/DL (2.5-4.9) L Magnesium Level 1.6 MG/DL (1.8-2.4) L Total Bilirubin 0.3 MG/DL (0.2-1.0) Aspartate Amino Transf (AST/SGOT) 10 U/L (15-37) L Alanine Aminotransferase (ALT/SGPT) 30 U/L (12-78) Alkaline Phosphatase 61 U/L (46-116) C-Reactive Protein, Quantitative 1.3 mg/dL (0.00-0.90) H Pro-B-Type Natriuretic Peptide 4596 pg/mL (0-125) H Total Protein 6.7 G/DL (6.4-8.2) Albumin 3.0 G/DL (3.4-5.0) L Globulin 3.7 g/dL Albumin/Globulin Ratio 0.8 (1.0-2.7) L Valproic Acid (Depakene) Level 35 MCG/ML (50-100) L Assessment/Plan # Anemia of chronic disease - labs reviwed and noted to have elevated ferritin and low tibc --> anemia also related to rich on ckd --> workup has been reviewed --> no e/o hemolysis --> hgb goal >7 # Leukopenia with a wbc of 3-4.5, potentially related to underlying infection --> hepatitis and hiv have been ordered and soon to review results --> us of the abdomen is somewhat limited exam, as described, Negative for gallstones or dilated ducts, Note nonvisualization of the left kidney and portions of the pancreas # Coagulopathy based on PTT high --> obtain INR/MI repeat # Encephalopathy Resolved # Vomiting - Unclear etiology Viral enteritis, Medication, Food toxin? --> Resolved Greatly appreciate consultation! Nilo Savage MD Nov 09, 2017 10:56
[2017-11-09 11:56] LABS: INR 1.1 (0.9-1.1)
[2017-11-09 12:00] VITALS: BP 145/68
--- NOTE | 2017-11-09 12:55 | Nephrology Progress Note ---
Assessment/Plan Assessment Acute renal failure- Hyperkalemia Acute encephalopathy COPD HTN Anemia UTI Plan Adjust BP meds- IV hydration Adjust mind altering meds breathing treatment UTI treatment per orders Objective Objective Last 24 Hour Vital Signs Date Time Temp Pulse Resp B/P (MAP) Pulse Ox O2 Delivery O2 Flow Rate FiO2 11/09/17 12:00 97.6 88 22 145/68 (93) 99 97.6 11/09/17 10:13 104 157/74 11/09/17 09:00 Nasal Cannula 3.0 11/09/17 08:00 97.3 104 24 157/74 (101) 97 97.3 11/09/17 04:00 97.2 100 21 156/97 (116) 98 97.2 11/08/17 21:00 Nasal Cannula 3.0 11/08/17 20:00 97.2 91 22 132/76 (94) 100 97.2 11/08/17 16:00 97.7 77 20 146/68 (94) 100 97.7 Intake and Output 11/08/17 11/09/17 19:00 07:00 Intake Total 925 ml 900 ml Output Total 500 ml Balance 425 ml 900 ml Intake Oral 25 ml IV Total 900 ml 900 ml Output Urine Total 500 ml # Voids 1 3 Laboratory Tests 11/09/17 05:10: White Blood Count 4.4L, Red Blood Count 3.02L, Hemoglobin 9.9L, Hematocrit 29.9L , Mean Corpuscular Volume 99, Mean Corpuscular Hemoglobin 32.8H, Mean Corpuscular Hemoglobin Concent 33.1, Red Cell Distribution Width 12.2, Platelet Count 136L, Mean Platelet Volume 5.4L, Neutrophils (%) (Auto) 52.9, Lymphocytes (%) (Auto) 28.6, Monocytes (%) (Auto) 14.7H, Eosinophils (%) (Auto) 2.7, Basophils (%) (Auto) 1.1, Sodium Level 141, Potassium Level 4.8, Chloride Level 109H, Carbon Dioxide Level 26, Anion Gap 6, Blood Urea Nitrogen 27H, Creatinine 1.5H, Estimat Glomerular Filtration Rate 34.9, Glucose Level 97, Calcium Level 9.6, Phosphorus Level 2.2L, Magnesium Level 1.6L, Total Bilirubin 0.3, Aspartate Amino Transf (AST/SGOT) 10L, Alanine Aminotransferase (ALT/SGPT) 30, Alkaline Phosphatase 61, C-Reactive Protein, Quantitative 1.3H, Pro-B-Type Natriuretic Peptide 4596H, Total Protein 6.7, Albumin 3.0L, Globulin 3.7, Albumin/Globulin Ratio 0.8L, Valproic Acid (Depakene) Level 35L, Hepatitis A IgM Antibody [Pending], Hepatitis B Surface Antigen [Pending], Hepatitis B Core IgM Antibody [Pending], Hepatitis C Antibody [Pending] 11/09/17 05:11: HIV (1&2) Antibody Rapid Negative 11/09/17 11:30: Prothrombin Time 11.7H, Prothromb Time International Ratio 1.1 Height (Feet): 5 Height (Inches): 4.00 Weight (Pounds): 210 John Paul Urias MD Nov 09, 2017 12:55
--- NOTE | 2017-11-09 13:04 | Nephrology Progress Note ---
Assessment/Plan Problem List: (1) Acute renal failure (ARF) (2) Hyperkalemia (3) Acute encephalopathy (4) COPD (chronic obstructive pulmonary disease) (5) Anemia Assessment Acute renal failure- Hyperkalemia Acute encephalopathy COPD HTN Anemia UTI Plan Adjust BP meds- increase lopressor IV hydration Adjust mind altering meds breathing treatment UTI treatment mag and phos supplement per orders Subjective ROS Limited/Unobtainable: No Constitutional: Reports: malaise, weakness Objective Objective Last 24 Hour Vital Signs Date Time Temp Pulse Resp B/P (MAP) Pulse Ox O2 Delivery O2 Flow Rate FiO2 11/09/17 12:00 97.6 88 22 145/68 (93) 99 97.6 11/09/17 10:13 104 157/74 11/09/17 09:00 Nasal Cannula 3.0 11/09/17 08:00 97.3 104 24 157/74 (101) 97 97.3 11/09/17 04:00 97.2 100 21 156/97 (116) 98 97.2 11/08/17 21:00 Nasal Cannula 3.0 11/08/17 20:00 97.2 91 22 132/76 (94) 100 97.2 11/08/17 16:00 97.7 77 20 146/68 (94) 100 97.7 Intake and Output 11/08/17 11/09/17 19:00 07:00 Intake Total 925 ml 900 ml Output Total 500 ml Balance 425 ml 900 ml Intake Oral 25 ml IV Total 900 ml 900 ml Output Urine Total 500 ml # Voids 1 3 Laboratory Tests 11/09/17 05:10: White Blood Count 4.4L, Red Blood Count 3.02L, Hemoglobin 9.9L, Hematocrit 29.9L , Mean Corpuscular Volume 99, Mean Corpuscular Hemoglobin 32.8H, Mean Corpuscular Hemoglobin Concent 33.1, Red Cell Distribution Width 12.2, Platelet Count 136L, Mean Platelet Volume 5.4L, Neutrophils (%) (Auto) 52.9, Lymphocytes (%) (Auto) 28.6, Monocytes (%) (Auto) 14.7H, Eosinophils (%) (Auto) 2.7, Basophils (%) (Auto) 1.1, Sodium Level 141, Potassium Level 4.8, Chloride Level 109H, Carbon Dioxide Level 26, Anion Gap 6, Blood Urea Nitrogen 27H, Creatinine 1.5H, Estimat Glomerular Filtration Rate 34.9, Glucose Level 97, Calcium Level 9.6, Phosphorus Level 2.2L, Magnesium Level 1.6L, Total Bilirubin 0.3, Aspartate Amino Transf (AST/SGOT) 10L, Alanine Aminotransferase (ALT/SGPT) 30, Alkaline Phosphatase 61, C-Reactive Protein, Quantitative 1.3H, Pro-B-Type Natriuretic Peptide 4596H, Total Protein 6.7, Albumin 3.0L, Globulin 3.7, Albumin/Globulin Ratio 0.8L, Valproic Acid (Depakene) Level 35L, Hepatitis A IgM Antibody [Pending], Hepatitis B Surface Antigen [Pending], Hepatitis B Core IgM Antibody [Pending], Hepatitis C Antibody [Pending] 11/09/17 05:11: HIV (1&2) Antibody Rapid Negative 11/09/17 11:30: Prothrombin Time 11.7H, Prothromb Time International Ratio 1.1 Height (Feet): 5 Height (Inches): 4.00 Weight (Pounds): 210 General Appearance: no apparent distress, lethargic, confused Cardiovascular: tachycardia Respiratory/Chest: decreased breath sounds Abdomen: soft, distended Objective no change John Paul Urias MD Nov 09, 2017 13:04
--- NOTE | 2017-11-09 13:28 | Pulmonology Progress Note ---
Assessment/Plan Problems: (1) Acute encephalopathy (2) Renal failure (3) Hyperkalemia (4) COPD (chronic obstructive pulmonary disease) (5) HTN (hypertension) Assessment/Plan npo neuro evaluation check electrolytes monitor BP respiratory treatment check electrolytes Subjective ROS Limited/Unobtainable: No Constitutional: Reports: no symptoms HEENT: Repors: no symptoms Respiratory: Reports: no symptoms Allergies: Coded Allergies: LEVOFLOXACIN (Unverified Allergy, Unknown, 10/28/17) MEROPENEM (Unverified Allergy, Unknown, 10/28/17) PENICILLINS (Verified Allergy, Unknown, 03/17/16) Objective Last 24 Hour Vital Signs Date Time Temp Pulse Resp B/P (MAP) Pulse Ox O2 Delivery O2 Flow Rate FiO2 11/09/17 12:00 97.6 88 22 145/68 (93) 99 97.6 11/09/17 10:13 104 157/74 11/09/17 09:00 Nasal Cannula 3.0 11/09/17 08:00 97.3 104 24 157/74 (101) 97 97.3 11/09/17 04:00 97.2 100 21 156/97 (116) 98 97.2 11/08/17 21:00 Nasal Cannula 3.0 11/08/17 20:00 97.2 91 22 132/76 (94) 100 97.2 11/08/17 16:00 97.7 77 20 146/68 (94) 100 97.7 Intake and Output 11/08/17 11/09/17 19:00 07:00 Intake Total 925 ml 900 ml Output Total 500 ml Balance 425 ml 900 ml Intake Oral 25 ml IV Total 900 ml 900 ml Output Urine Total 500 ml # Voids 1 3 General Appearance: WD/WN HEENT: normocephalic, atraumatic Respiratory/Chest: chest wall non-tender, lungs clear Cardiovascular: normal peripheral pulses, normal rate Abdomen: normal bowel sounds, non distended Genitourinary: normal external genitalia Extremities: no clubbing Microbiology Date/Time Source Procedure Growth Status 11/06/17 13:29 Blood Blood Culture - Preliminary NO GROWTH AFTER 48 HOURS Resulted 11/06/17 15:40 Nasal Nares MRSA Culture - Final NO METHICILLIN RESISTANT STAPH AUREUS... Complete 11/07/17 18:15 Urine,Clean Catch Urine Culture - Preliminary Gram Negative Bacillus 1 Streptococcus Species Resulted 11/06/17 15:40 Rectum VRE Culture - Final Enterococcus Faecium - Vre Enterococcus Faecalis - Vre Complete 11/06/17 15:40 Rectum - Final NO CARBAPENEM-RESISTANT ENTEROBACTERI... Complete Laboratory Tests 11/09/17 05:10: White Blood Count 4.4L, Red Blood Count 3.02L, Hemoglobin 9.9L, Hematocrit 29.9L , Mean Corpuscular Volume 99, Mean Corpuscular Hemoglobin 32.8H, Mean Corpuscular Hemoglobin Concent 33.1, Red Cell Distribution Width 12.2, Platelet Count 136L, Mean Platelet Volume 5.4L, Neutrophils (%) (Auto) 52.9, Lymphocytes (%) (Auto) 28.6, Monocytes (%) (Auto) 14.7H, Eosinophils (%) (Auto) 2.7, Basophils (%) (Auto) 1.1, Sodium Level 141, Potassium Level 4.8, Chloride Level 109H, Carbon Dioxide Level 26, Anion Gap 6, Blood Urea Nitrogen 27H, Creatinine 1.5H, Estimat Glomerular Filtration Rate 34.9, Glucose Level 97, Calcium Level 9.6, Phosphorus Level 2.2L, Magnesium Level 1.6L, Total Bilirubin 0.3, Aspartate Amino Transf (AST/SGOT) 10L, Alanine Aminotransferase (ALT/SGPT) 30, Alkaline Phosphatase 61, C-Reactive Protein, Quantitative 1.3H, Pro-B-Type Natriuretic Peptide 4596H, Total Protein 6.7, Albumin 3.0L, Globulin 3.7, Albumin/Globulin Ratio 0.8L, Valproic Acid (Depakene) Level 35L, Hepatitis A IgM Antibody [Pending], Hepatitis B Surface Antigen [Pending], Hepatitis B Core IgM Antibody [Pending], Hepatitis C Antibody [Pending] 11/09/17 05:11: HIV (1&2) Antibody Rapid Negative 11/09/17 11:30: Prothrombin Time 11.7H, Prothromb Time International Ratio 1.1 Current Medications Medications (Trade) Dose Ordered Sig/Leroy Route PRN Reason Start Time Stop Time Status Last Admin Dose Admin Acetaminophen (Tylenol) 650 mg Q4H PRN ORAL fever 11/07/17 15:15 12/06/17 19:14 Aripiprazole (Abilify) 30 mg DAILY ORAL 11/08/17 09:00 10/18/18 08:59 11/09/17 10:12 Chlorhexidine Gluconate (Bryanna-Hex 2%) 1 applic DAILY@2000 TOPIC 11/07/17 20:00 12/06/17 19:59 11/07/17 21:04 Clonidine HCl (Catapres Tab) 0.1 mg Q4H PRN ORAL SBP over 160 11/08/17 09:00 12/08/17 08:59 Dextrose/Sodium Chloride 1,000 ml @ 75 mls/hr [id number] IV 11/07/17 14:45 12/06/17 19:04 11/09/17 10:31 Fluoxetine HCl (PROzac) 40 mg DAILY ORAL 11/08/17 09:00 12/07/17 08:59 11/09/17 10:12 Gabapentin (Neurontin) 100 mg TID ORAL 11/07/17 13:00 12/07/17 12:59 11/09/17 10:12 Heparin Sodium (Porcine) (Heparin 5000 units/ml) 5,000 units EVERY 12 HOURS SUBQ 11/09/17 12:30 12/06/17 12:29 11/09/17 12:19 Lorazepam (Ativan 2mg/ml 1ml) 1 mg Q4H PRN IV agitation 11/07/17 15:15 11/13/17 19:14 11/09/17 06:37 Magnesium Sulfate 100 ml @ 100 mls/hr Q1H IVPB 11/09/17 13:30 11/09/17 15:29 Metoclopramide HCl (Reglan) 10 mg Q6H PRN IVP severe nausea 11/07/17 15:00 12/06/17 14:59 Metoprolol Tartrate (Lopressor) 50 mg Q12HR ORAL 11/09/17 21:00 12/09/17 20:59 Nitroglycerin (Ntg) 0.4 mg Q5M X 3 DOSES PRN SL Prn Chest Pain 11/07/17 14:45 12/06/17 19:14 Pantoprazole (Protonix) 40 mg DAILY IV 11/08/17 09:00 12/07/17 08:59 11/09/17 10:13 Polyethylene Glycol (Miralax) 17 gm HSPRN PRN ORAL Constipation 11/07/17 19:15 12/06/17 19:14 Promethazine HCl (Phenergan) 25 mg Q6H PRN IM REFRACTORY SEIZURE 11/07/17 15:00 12/06/17 14:59 Sodium Phosphate 15 mm/Sodium Chloride 280 ml @ 70.273 mls/ hr ONCE IVPB 11/09/17 14:30 12/09/17 14:29 Tamsulosin HCl (Flomax) 0.4 mg BEDTIME ORAL 11/07/17 21:00 12/06/17 20:59 11/07/17 21:15 Temazepam (Restoril) 15 mg HSPRN PRN ORAL Insomnia 11/07/17 19:15 11/13/17 19:14 Valproate Sodium 500 mg/Dextrose 60 ml @ 60 mls/hr Q12HR IVPB 11/08/17 21:00 12/08/17 20:59 11/09/17 10:32 James Wing MD Nov 09, 2017 13:28
[2017-11-09] MEDS ORDERED: Sodium Phosphate 15 MM in NS 275 ML IVPB SCH (14:30)
--- NOTE | 2017-11-09 15:27 | General Progress Note ---
Assessment/Plan Problem List: (1) Pancytopenia ICD Codes: D61.818 - Other pancytopenia SNOMED: 796171078 (2) Hyperkalemia ICD Codes: E87.5 - Hyperkalemia SNOMED: 86954676 (3) Renal failure ICD Codes: N19 - Unspecified kidney failure SNOMED: 70840228 (4) Gastroenteritis ICD Codes: K52.9 - Noninfective gastroenteritis and colitis, unspecified SNOMED: 92701227 (5) Altered mental status ICD Codes: R41.82 - Altered mental status, unspecified SNOMED: 063913646 (6) COPD (chronic obstructive pulmonary disease) ICD Codes: J44.9 - Chronic obstructive pulmonary disease, unspecified SNOMED: 11721045 (7) HTN (hypertension) ICD Codes: I10 - Essential (primary) hypertension SNOMED: 41737722 (8) Renal insufficiency ICD Codes: N28.9 - Disorder of kidney and ureter, unspecified SNOMED: 365013860, 634534654 (9) Acute encephalopathy ICD Codes: G93.40 - Encephalopathy, unspecified SNOMED: 18784133, 718239449 Status: stable, progressing Assessment/Plan ot pt diet abx heme eval cbc bmp am Subjective Constitutional: Reports: weakness Allergies: Coded Allergies: LEVOFLOXACIN (Unverified Allergy, Unknown, 10/28/17) MEROPENEM (Unverified Allergy, Unknown, 10/28/17) PENICILLINS (Verified Allergy, Unknown, 03/17/16) All Systems: reviewed and negative except above Subjective o2nc sleep Objective Last 24 Hour Vital Signs Date Time Temp Pulse Resp B/P (MAP) Pulse Ox O2 Delivery O2 Flow Rate FiO2 11/09/17 12:00 97.6 88 22 145/68 (93) 99 97.6 11/09/17 10:13 104 157/74 11/09/17 09:00 Nasal Cannula 3.0 11/09/17 08:00 97.3 104 24 157/74 (101) 97 97.3 11/09/17 04:00 97.2 100 21 156/97 (116) 98 97.2 11/08/17 21:00 Nasal Cannula 3.0 11/08/17 20:00 97.2 91 22 132/76 (94) 100 97.2 11/08/17 16:00 97.7 77 20 146/68 (94) 100 97.7 Intake and Output 11/08/17 11/09/17 19:00 07:00 Intake Total 925 ml 900 ml Output Total 500 ml Balance 425 ml 900 ml Intake Oral 25 ml IV Total 900 ml 900 ml Output Urine Total 500 ml # Voids 1 3 Laboratory Tests 11/09/17 05:10: White Blood Count 4.4L, Red Blood Count 3.02L, Hemoglobin 9.9L, Hematocrit 29.9L , Mean Corpuscular Volume 99, Mean Corpuscular Hemoglobin 32.8H, Mean Corpuscular Hemoglobin Concent 33.1, Red Cell Distribution Width 12.2, Platelet Count 136L, Mean Platelet Volume 5.4L, Neutrophils (%) (Auto) 52.9, Lymphocytes (%) (Auto) 28.6, Monocytes (%) (Auto) 14.7H, Eosinophils (%) (Auto) 2.7, Basophils (%) (Auto) 1.1, Sodium Level 141, Potassium Level 4.8, Chloride Level 109H, Carbon Dioxide Level 26, Anion Gap 6, Blood Urea Nitrogen 27H, Creatinine 1.5H, Estimat Glomerular Filtration Rate 34.9, Glucose Level 97, Calcium Level 9.6, Phosphorus Level 2.2L, Magnesium Level 1.6L, Total Bilirubin 0.3, Aspartate Amino Transf (AST/SGOT) 10L, Alanine Aminotransferase (ALT/SGPT) 30, Alkaline Phosphatase 61, C-Reactive Protein, Quantitative 1.3H, Pro-B-Type Natriuretic Peptide 4596H, Total Protein 6.7, Albumin 3.0L, Globulin 3.7, Albumin/Globulin Ratio 0.8L, Valproic Acid (Depakene) Level 35L, Hepatitis A IgM Antibody [Pending], Hepatitis B Surface Antigen [Pending], Hepatitis B Core IgM Antibody [Pending], Hepatitis C Antibody [Pending] 11/09/17 05:11: HIV (1&2) Antibody Rapid Negative 11/09/17 11:30: Prothrombin Time 11.7H, Prothromb Time International Ratio 1.1 11/09/17 14:41: Stool Occult Blood Negative Height (Feet): 5 Height (Inches): 4.00 Weight (Pounds): 210 General Appearance: lethargic EENT: normal ENT inspection Neck: normal alignment Cardiovascular: normal peripheral pulses, normal rate, regular rhythm Respiratory/Chest: chest wall non-tender, lungs clear, normal breath sounds Abdomen: normal bowel sounds, non tender, soft Extremities: normal inspection Edema: no edema noted Arm (L), no edema noted Arm (R), no edema noted Leg (L), no edema noted Leg (R), no edema noted Pedal (L), no edema noted Pedal (R), no edema noted Generalized Neurologic: motor weakness Skin: normal pigmentation, warm/dry Vance Armstrong DO Nov 09, 2017 15:27
[2017-11-09 16:00] VITALS: BP 170/93
[2017-11-09 20:00] VITALS: BP 169/85
[2017-11-09] MEDS: Dyna-Hex 2% Top Sol 2oz TOPIC SCH (20:32)
[2017-11-09] MEDS: Tamsulosin 0.4mg cap ORAL SCH (20:35)
[2017-11-09] MEDS: Metoprolol Tartrate 50mg tab ORAL SCH (20:35)
[2017-11-09] MEDS ORDERED: Heparin 5000 units/ml inj SUBQ SCH (21:00)
[2017-11-10] VITALS: BP 158/81
[2017-11-10 04:00] VITALS: BP 123/72
[2017-11-10 06:31] LABS: BASOPHILS % (AUTO) 0.9 % (0.0-2.0); EOSINOPHILS % (AUTO) 2.6 % (0.0-3.0); HEMATOCRIT 26.1 % (37.0-47.0); HEMOGLOBIN 8.9 G/DL (12.0-16.0); LYMPHOCYTES % (AUTO) 33.5 % (20.0-45.0); MEAN CORPUSCULAR VOLUME 99 FL (80-99); MONOCYTES % (AUTO) 13.7 % (1.0-10.0); NEUTROPHILS % (AUTO) 49.3 % (45.0-75.0); PLATELET COUNT 156 K/UL (150-450); RED BLOOD COUNT 2.64 M/UL (4.20-5.40); RED CELL DISTRIBUTION WIDTH 12.2 % (11.6-14.8); WHITE BLOOD COUNT 4.1 K/UL (4.8-10.8)
[2017-11-10 07:08] LABS: ALANINE AMINOTRANSFERASE 27 U/L (12-78); ALBUMIN 2.6 G/DL (3.4-5.0); ALBUMIN/GLOBULIN RATIO 0.9 (1.0-2.7); ALKALINE PHOSPHATASE 58 U/L (46-116); ANION GAP 5 mmol/L (5-15); ASPARTATE AMINO TRANSFERASE 12 U/L (15-37); BILIRUBIN,TOTAL 0.3 MG/DL (0.2-1.0); BLOOD UREA NITROGEN 18 mg/dL (7-18); CALCIUM 8.9 MG/DL (8.5-10.1); CARBON DIOXIDE 28 MMOL/L (21-32); CHLORIDE 110 MMOL/L (98-107); CREATININE 1.3 MG/DL (0.55-1.30); PHOSPHORUS 3.3 MG/DL (2.5-4.9); POTASSIUM 4.2 MMOL/L (3.5-5.1); SODIUM 143 MMOL/L (136-145)
[2017-11-10 07:20] LABS: CREATINE KINASE 70 U/L (26-308); GAMMA GLUTAMYL TRANSPEPTIDASE 14 U/L (5-85)
[2017-11-10 08:00] VITALS: BP 147/83
--- NOTE | 2017-11-10 08:03 | Infectious Diseases Prog Note ---
Assessment/Plan Assessment/Plan 62 yo female who presented to the ED on 11/06/17 from her correction with AMS and vomiting. Encephalopathy Resolved Vomiting - Unclear etiology Viral enteritis, Medication, Food toxin? Resolved Bacteriuria - Infection unlikely UCx - Strep and GNR (Low levels) 11/06 - UA neg HTN OR CAD COPD GERD CVA/TIA Psych Hx Renal Disease Plan: Continue to monitor off Abx Monitor CBC and Temps We will continue to follow the patient during this hospitalization. Subjective Allergies: Coded Allergies: LEVOFLOXACIN (Unverified Allergy, Unknown, 10/28/17) MEROPENEM (Unverified Allergy, Unknown, 10/28/17) PENICILLINS (Verified Allergy, Unknown, 03/17/16) Subjective Afebrile No Acute Events Objective Vital Signs Last 24 Hour Vital Signs Date Time Temp Pulse Resp B/P (MAP) Pulse Ox O2 Delivery O2 Flow Rate FiO2 11/10/17 04:00 97.6 77 20 123/72 (89) 99 97.6 11/10/17 00:00 97.5 79 20 158/81 (106) 99 97.5 11/09/17 20:41 98 Nasal Cannula 2.0 28 11/09/17 20:41 Nasal Cannula 2.0 28 11/09/17 20:35 95 162/89 11/09/17 20:00 97.8 98 20 169/85 (113) 99 97.8 11/09/17 18:03 170/93 11/09/17 16:00 97.7 93 23 170/93 (118) 96 97.7 11/09/17 12:00 97.6 88 22 145/68 (93) 99 97.6 11/09/17 10:13 104 157/74 11/09/17 09:00 Nasal Cannula 3.0 Height (Feet): 5 Height (Inches): 4.00 Weight (Pounds): 210 Objective Gen: NAD, Awake and talking but lethargic HEENT: NCAT, MMM, no scleral icterus LUNGS: CTAB, No W/C, No Accessory muscle use CARDS: RRR, S1, S2, No M/R/G ABD: Soft, ND, No R/G, + BS, No HSM, No Masses Ext: C/C/E, Pulses 2+ B/L (DP, Rad) NEURO: A/O x 1 Microbiology Date/Time Source Procedure Growth Status 11/07/17 18:15 Urine,Clean Catch Urine Culture - Preliminary Gram Negative Bacillus 1 Streptococcus Species Resulted Laboratory Tests Test 11/09/17 11:30 11/09/17 14:41 11/10/17 05:30 Prothrombin Time 11.7 SEC (9.30-11.50) H Prothromb Time International Ratio 1.1 (0.9-1.1) Stool Occult Blood Negative (NEGATIVE) White Blood Count 4.1 K/UL (4.8-10.8) L Red Blood Count 2.64 M/UL (4.20-5.40) L Hemoglobin 8.9 G/DL (12.0-16.0) L Hematocrit 26.1 % (37.0-47.0) L Mean Corpuscular Volume 99 FL (80-99) Mean Corpuscular Hemoglobin 33.6 PG (27.0-31.0) H Mean Corpuscular Hemoglobin Concent 34.0 G/DL (32.0-36.0) Red Cell Distribution Width 12.2 % (11.6-14.8) Platelet Count 156 K/UL (150-450) Mean Platelet Volume 5.9 FL (6.5-10.1) L Neutrophils (%) (Auto) 49.3 % (45.0-75.0) Lymphocytes (%) (Auto) 33.5 % (20.0-45.0) Monocytes (%) (Auto) 13.7 % (1.0-10.0) H Eosinophils (%) (Auto) 2.6 % (0.0-3.0) Basophils (%) (Auto) 0.9 % (0.0-2.0) Sodium Level 143 MMOL/L (136-145) Potassium Level 4.2 MMOL/L (3.5-5.1) Chloride Level 110 MMOL/L (98-107) H Carbon Dioxide Level 28 MMOL/L (21-32) Anion Gap 5 mmol/L (5-15) Blood Urea Nitrogen 18 mg/dL (7-18) Creatinine 1.3 MG/DL (0.55-1.30) Estimat Glomerular Filtration Rate 41.3 mL/min (>60) Glucose Level 102 MG/DL (74-106) Uric Acid 7.9 MG/DL (2.6-7.2) H Calcium Level 8.9 MG/DL (8.5-10.1) Phosphorus Level 3.3 MG/DL (2.5-4.9) Magnesium Level 1.9 MG/DL (1.8-2.4) Total Bilirubin 0.3 MG/DL (0.2-1.0) Gamma Glutamyl Transpeptidase 14 U/L (5-85) Aspartate Amino Transf (AST/SGOT) 12 U/L (15-37) L Alanine Aminotransferase (ALT/SGPT) 27 U/L (12-78) Alkaline Phosphatase 58 U/L (46-116) Total Creatine Kinase 70 U/L (26-308) C-Reactive Protein, Quantitative 2.8 mg/dL (0.00-0.90) H Pro-B-Type Natriuretic Peptide 5340 pg/mL (0-125) H Total Protein 5.6 G/DL (6.4-8.2) L Albumin 2.6 G/DL (3.4-5.0) L Globulin 3.0 g/dL Albumin/Globulin Ratio 0.9 (1.0-2.7) L Current Medications Medications (Trade) Dose Ordered Sig/Leroy Route PRN Reason Start Time Stop Time Status Last Admin Dose Admin Acetaminophen (Tylenol) 650 mg Q4H PRN ORAL fever 11/07/17 15:15 12/06/17 19:14 Aripiprazole (Abilify) 30 mg DAILY ORAL 11/08/17 09:00 12/07/17 08:59 11/09/17 10:12 Chlorhexidine Gluconate (Bryanna-Hex 2%) 1 applic DAILY@1999 TOPIC 11/07/17 20:00 12/06/17 19:59 11/09/17 20:32 Clonidine HCl (Catapres Tab) 0.1 mg Q4H PRN ORAL SBP over 160 11/08/17 09:00 12/08/17 08:59 11/09/17 18:03 Dextrose/Sodium Chloride 1,000 ml @ 75 mls/hr [id number] IV 11/07/17 14:45 12/06/17 19:04 11/09/17 10:31 Fluoxetine HCl (PROzac) 40 mg DAILY ORAL 11/08/17 09:00 12/07/17 08:59 11/09/17 10:12 Gabapentin (Neurontin) 100 mg TID ORAL 11/07/17 13:00 12/07/17 12:59 11/09/17 18:03 Heparin Sodium (Porcine) (Heparin 5000 units/ml) 5,000 units EVERY 12 HOURS SUBQ 11/09/17 12:30 12/06/17 12:29 11/09/17 20:37 Lorazepam (Ativan 2mg/ml 1ml) 1 mg Q4H PRN IV agitation 11/07/17 15:15 11/13/17 19:14 11/09/17 06:37 Metoclopramide HCl (Reglan) 10 mg Q6H PRN IVP severe nausea 11/07/17 15:00 12/06/17 14:59 Metoprolol Tartrate (Lopressor) 50 mg Q12HR ORAL 11/09/17 21:00 12/09/17 20:59 11/09/17 20:35 Nitroglycerin (Ntg) 0.4 mg Q5M X 3 DOSES PRN SL Prn Chest Pain 11/07/17 14:45 12/06/17 19:14 Pantoprazole (Protonix) 40 mg DAILY IV 11/08/17 09:00 12/07/17 08:59 11/09/17 10:13 Polyethylene Glycol (Miralax) 17 gm HSPRN PRN ORAL Constipation 11/07/17 19:15 12/06/17 19:14 Promethazine HCl (Phenergan) 25 mg Q6H PRN IM REFRACTORY SEIZURE 11/07/17 15:00 12/06/17 14:59 Sodium Phosphate 15 mm/Sodium Chloride 280 ml @ 70.273 mls/ hr ONCE IVPB 11/09/17 14:30 12/09/17 14:29 11/09/17 18:03 Tamsulosin HCl (Flomax) 0.4 mg BEDTIME ORAL 11/07/17 21:00 12/06/17 20:59 11/09/17 20:35 Temazepam (Restoril) 15 mg HSPRN PRN ORAL Insomnia 11/07/17 19:15 11/13/17 19:14 Valproate Sodium 500 mg/Dextrose 60 ml @ 60 mls/hr Q12HR IVPB 11/08/17 21:00 12/08/17 20:59 11/09/17 21:00 Terry Wagoner MD Nov 10, 2017 08:03
[2017-11-10] MEDS: Valproate Sodium INJ 500 MG in D5W 55 ML IVPB SCH (08:56)
[2017-11-10] MEDS: D5 1/2NS 1,000 ML IV SCH ×2 (08:57→22:45)
[2017-11-10] MEDS: Pantoprazole Inj IV SCH (08:57)
[2017-11-10] MEDS: Metoprolol Tartrate 50mg tab ORAL SCH ×2 (09:00→20:25)
[2017-11-10] MEDS: Heparin 5000 units/ml inj SUBQ SCH ×2 (09:00→20:28)
[2017-11-10] MEDS: ARIPiprazole 10mg tab ORAL SCH (09:00)
--- NOTE | 2017-11-10 10:07 | General Progress Note ---
Assessment/Plan Assessment/Plan # Anemia of chronic disease - labs reviwed and noted to have elevated ferritin and low tibc, potentially 2/2 to hepatitis C --> anemia also related to rich on ckd --> workup has been reviewed and results as noted above --> no e/o hemolysis --> hgb goal >7 # Leukopenia with a wbc of 3-4.5, is very likely related to history of hepatitis C --> hepatitis shows hep C and hiv been ordered --> us of the abdomen is somewhat limited exam, as described, Negative for gallstones or dilated ducts, Note nonvisualization of the left kidney and portions of the pancreas # Coagulopathy based on PTT high, potentially 2/2 to hepatitis C --> obtain INR/[place] repeat # Encephalopathy Resolved # Vomiting - Unclear etiology Viral enteritis, Medication, Food toxin? --> Resolved Greatly appreciate consultation! Subjective ROS Limited/Unobtainable: Yes Allergies: Coded Allergies: LEVOFLOXACIN (Unverified Allergy, Unknown, 10/28/17) MEROPENEM (Unverified Allergy, Unknown, 10/28/17) PENICILLINS (Verified Allergy, Unknown, 03/17/16) Subjective remains encephalopathic, not eating, dw [place] [facility] Objective Last 24 Hour Vital Signs Date Time Temp Pulse Resp B/P (MAP) Pulse Ox O2 Delivery O2 Flow Rate FiO2 11/10/17 08:00 Nasal Cannula 2.0 11/10/17 08:00 97.2 78 24 147/83 (104) 100 97.2 11/10/17 04:00 97.6 77 20 123/72 (89) 99 97.6 11/10/17 00:00 97.5 79 20 158/81 (106) 99 97.5 11/09/17 21:00 Nasal Cannula 3.0 11/09/17 20:41 98 Nasal Cannula 2.0 28 11/09/17 20:41 Nasal Cannula 2.0 28 11/09/17 20:35 95 162/89 11/09/17 20:00 97.8 98 20 169/85 (113) 99 97.8 11/09/17 18:03 170/93 11/09/17 16:00 97.7 93 23 170/93 (118) 96 97.7 11/09/17 12:00 97.6 88 22 145/68 (93) 99 97.6 11/09/17 10:13 104 157/74 Intake and Output 11/09/17 11/10/17 19:00 07:00 Intake Total 660 ml 1003.723 ml Output Total 600 ml Balance 660 ml 403.723 ml Intake Oral 120 ml IV Total 660 ml 883.723 ml Output Urine Total 600 ml # Voids 2 3 # Bowel Movements 2 Laboratory Tests 11/09/17 11:30: Prothrombin Time 11.7H, Prothromb Time International Ratio 1.1 11/09/17 14:41: Stool Occult Blood Negative 11/10/17 05:30: White Blood Count 4.1L, Red Blood Count 2.64L, Hemoglobin 8.9L, Hematocrit 26.1L , Mean Corpuscular Volume 99, Mean Corpuscular Hemoglobin 33.6H, Mean Corpuscular Hemoglobin Concent 34.0, Red Cell Distribution Width 12.2, Platelet Count 156, Mean Platelet Volume 5.9L, Neutrophils (%) (Auto) 49.3, Lymphocytes ( %) (Auto) 33.5, Monocytes (%) (Auto) 13.7H, Eosinophils (%) (Auto) 2.6, Basophils (%) (Auto) 0.9, Sodium Level 143, Potassium Level 4.2, Chloride Level 110H, Carbon Dioxide Level 28, Anion Gap 5, Blood Urea Nitrogen 18, Creatinine 1.3, Estimat Glomerular Filtration Rate 41.3, Glucose Level 102, Uric Acid 7.9H , Calcium Level 8.9, Phosphorus Level 3.3, Magnesium Level 1.9, Total Bilirubin 0.3, Gamma Glutamyl Transpeptidase 14, Aspartate Amino Transf (AST/SGOT) 12L, Alanine Aminotransferase (ALT/SGPT) 27, Alkaline Phosphatase 58, Total Creatine Kinase 70, C-Reactive Protein, Quantitative 2.8H, Pro-B-Type Natriuretic Peptide 5340H, Total Protein 5.6L, Albumin 2.6L, Globulin 3.0, Albumin/Globulin Ratio 0.9L Height (Feet): 5 Height (Inches): 4.00 Weight (Pounds): 210 General Appearance: no apparent distress EENT: TMs normal Neck: supple Cardiovascular: regular rhythm Respiratory/Chest: normal breath sounds Abdomen: no mass Extremities: non-tender Edema: 1+ Leg (L), 1+ Leg (R) Edema: mild edema Neurologic: responsive Skin: warm/dry Nilo Savage MD Nov 10, 2017 10:07
--- NOTE | 2017-11-10 10:57 | GI Progress Note ---
Assessment/Plan Problems: (1) Fatty liver, alcoholic ICD Codes: K70.0 - Alcoholic fatty liver SNOMED: 89788436 (2) Acute encephalopathy ICD Codes: G93.40 - Encephalopathy, unspecified SNOMED: 98208130, 095742353 (3) Altered mental status ICD Codes: R41.82 - Altered mental status, unspecified SNOMED: 947085962 (4) Gastroenteritis ICD Codes: K52.9 - Noninfective gastroenteritis and colitis, unspecified SNOMED: 28211853 (5) Pancytopenia ICD Codes: D61.818 - Other pancytopenia SNOMED: 938454123 (6) Vomiting ICD Codes: R11.10 - Vomiting, unspecified SNOMED: 295294325 Status: unchanged Status Narrative Discussed with Dr. Bassett. Assessment/Plan Head CT reviewed >> Large remote infarct centered in the right occipital lobe/ right [employer] territory. anemia work up reviewed NGT, unable to participate with ST evaluation has been completely lethargic >> consider PEG if patient does not improve defer GI procedures, fu neurology supportive care electrolyte correction OB stool r/o GI bleed monitor H&H, prn transfusions bowel regime ppi zofran prn fu labs The patient was seen and examined at bedside and all new and available data was reviewed in the patients chart. I agree with the above findings, impression and plan. (Patient seen earlier today. Signature stamp does not reflect patient encounter time.). - Rashid Bassett MD Subjective Subjective limited Objective Last 24 Hour Vital Signs Date Time Temp Pulse Resp B/P (MAP) Pulse Ox O2 Delivery O2 Flow Rate FiO2 11/10/17 08:00 Nasal Cannula 2.0 11/10/17 08:00 97.2 78 24 147/83 (104) 100 97.2 11/10/17 04:00 97.6 77 20 123/72 (89) 99 97.6 11/10/17 00:00 97.5 79 20 158/81 (106) 99 97.5 11/09/17 21:00 Nasal Cannula 3.0 11/09/17 20:41 98 Nasal Cannula 2.0 28 11/09/17 20:41 Nasal Cannula 2.0 28 11/09/17 20:35 95 162/89 11/09/17 20:00 97.8 98 20 169/85 (113) 99 97.8 11/09/17 18:03 170/93 11/09/17 16:00 97.7 93 23 170/93 (118) 96 97.7 11/09/17 12:00 97.6 88 22 145/68 (93) 99 97.6 Intake and Output 11/09/17 11/10/17 19:00 07:00 Intake Total 660 ml 1003.723 ml Output Total 600 ml Balance 660 ml 403.723 ml Intake Oral 120 ml IV Total 660 ml 883.723 ml Output Urine Total 600 ml # Voids 2 3 # Bowel Movements 2 Laboratory Tests Test 11/09/17 11:30 11/09/17 14:41 11/10/17 05:30 Prothrombin Time 11.7 SEC (9.30-11.50) H Prothromb Time International Ratio 1.1 (0.9-1.1) Stool Occult Blood Negative (NEGATIVE) White Blood Count 4.1 K/UL (4.8-10.8) L Red Blood Count 2.64 M/UL (4.20-5.40) L Hemoglobin 8.9 G/DL (12.0-16.0) L Hematocrit 26.1 % (37.0-47.0) L Mean Corpuscular Volume 99 FL (80-99) Mean Corpuscular Hemoglobin 33.6 PG (27.0-31.0) H Mean Corpuscular Hemoglobin Concent 34.0 G/DL (32.0-36.0) Red Cell Distribution Width 12.2 % (11.6-14.8) Platelet Count 156 K/UL (150-450) Mean Platelet Volume 5.9 FL (6.5-10.1) L Neutrophils (%) (Auto) 49.3 % (45.0-75.0) Lymphocytes (%) (Auto) 33.5 % (20.0-45.0) Monocytes (%) (Auto) 13.7 % (1.0-10.0) H Eosinophils (%) (Auto) 2.6 % (0.0-3.0) Basophils (%) (Auto) 0.9 % (0.0-2.0) Sodium Level 143 MMOL/L (136-145) Potassium Level 4.2 MMOL/L (3.5-5.1) Chloride Level 110 MMOL/L (98-107) H Carbon Dioxide Level 28 MMOL/L (21-32) Anion Gap 5 mmol/L (5-15) Blood Urea Nitrogen 18 mg/dL (7-18) Creatinine 1.3 MG/DL (0.55-1.30) Estimat Glomerular Filtration Rate 41.3 mL/min (>60) Glucose Level 102 MG/DL (74-106) Uric Acid 7.9 MG/DL (2.6-7.2) H Calcium Level 8.9 MG/DL (8.5-10.1) Phosphorus Level 3.3 MG/DL (2.5-4.9) Magnesium Level 1.9 MG/DL (1.8-2.4) Total Bilirubin 0.3 MG/DL (0.2-1.0) Gamma Glutamyl Transpeptidase 14 U/L (5-85) Aspartate Amino Transf (AST/SGOT) 12 U/L (15-37) L Alanine Aminotransferase (ALT/SGPT) 27 U/L (12-78) Alkaline Phosphatase 58 U/L (46-116) Total Creatine Kinase 70 U/L (26-308) C-Reactive Protein, Quantitative 2.8 mg/dL (0.00-0.90) H Pro-B-Type Natriuretic Peptide 5340 pg/mL (0-125) H Total Protein 5.6 G/DL (6.4-8.2) L Albumin 2.6 G/DL (3.4-5.0) L Globulin 3.0 g/dL Albumin/Globulin Ratio 0.9 (1.0-2.7) L Height (Feet): 5 Height (Inches): 4.00 Weight (Pounds): 210 General Appearance: lethargic Cardiovascular: normal rate Respiratory/Chest: normal breath sounds, no respiratory distress Abdominal Exam: normal bowel sounds, non tender, soft Hector Combs NP Nov 10, 2017 10:57
[2017-11-10 12:00] VITALS: BP 164/75
--- NOTE | 2017-11-10 12:54 | Consultation ---
Consult Note Consult Note NEUROLOGY CONSULTATION: Full note dictated #[id number] 62 y/o, RH, CF who had a stroke numerous years ago when she was using heroin. She has also had a post-stroke seizure disorder. She also has a history of schizoaffective disorder - bipolar type, COPD, renal failure and hypertension. She was hospitalized for an alteration in her mental state and vomiting. She has been treated for a UTI and hydrated. She continues to have an altered MS and there is a suspicion of an acute CV event and thus this consult was requested. ON EXAM: Awake and alert. Oriented to self, hosp, 2018. M3/3-0, 13-1 & 3 Trump only Math and VS impaired. Speech - dysarthric Language anomic Left VF cut Left VII central Left UE plegia and LE paresis Mild right LE paresis L>R DTRs Extensor plantar on left. IMPRESSION: 1. 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 2. Multifactorial encephalopathy. 3. H/O seizures that are well controlled but with low VA level. REC: Continue present Rx. Increase Depacon to 1 G q 12 H. MRI of brain EEG Observe. Sana Britt M.D., M.S.P.SANA BACH Nov 10, 2017 12:54
--- NOTE | 2017-11-10 13:28 | Pulmonology Progress Note ---
Assessment/Plan Problems: (1) Acute encephalopathy (2) Renal failure (3) Hyperkalemia (4) COPD (chronic obstructive pulmonary disease) (5) HTN (hypertension) Assessment/Plan npo neuro evaluation NG tube is in off abx check electrolytes monitor BP respiratory treatment check electrolytes Subjective ROS Limited/Unobtainable: No Constitutional: Reports: no symptoms HEENT: Repors: no symptoms Respiratory: Reports: no symptoms Allergies: Coded Allergies: LEVOFLOXACIN (Unverified Allergy, Unknown, 10/28/17) MEROPENEM (Unverified Allergy, Unknown, 10/28/17) PENICILLINS (Verified Allergy, Unknown, 03/17/16) Objective Last 24 Hour Vital Signs Date Time Temp Pulse Resp B/P (MAP) Pulse Ox O2 Delivery O2 Flow Rate FiO2 11/10/17 12:00 97.8 89 24 164/75 (104) 96 97.8 11/10/17 08:00 Nasal Cannula 2.0 11/10/17 08:00 97.2 78 24 147/83 (104) 100 97.2 11/10/17 04:00 97.6 77 20 123/72 (89) 99 97.6 11/10/17 00:00 97.5 79 20 158/81 (106) 99 97.5 11/09/17 21:00 Nasal Cannula 3.0 11/09/17 20:41 98 Nasal Cannula 2.0 28 11/09/17 20:41 Nasal Cannula 2.0 28 11/09/17 20:35 95 162/89 11/09/17 20:00 97.8 98 20 169/85 (113) 99 97.8 11/09/17 18:03 170/93 11/09/17 16:00 97.7 93 23 170/93 (118) 96 97.7 Intake and Output 11/09/17 11/10/17 19:00 07:00 Intake Total 660 ml 1003.723 ml Output Total 600 ml Balance 660 ml 403.723 ml Intake Oral 120 ml IV Total 660 ml 883.723 ml Output Urine Total 600 ml # Voids 2 3 # Bowel Movements 2 General Appearance: WD/WN HEENT: normocephalic, atraumatic Respiratory/Chest: chest wall non-tender, lungs clear, normal breath sounds Cardiovascular: normal peripheral pulses, normal rate Abdomen: normal bowel sounds, soft, non tender Genitourinary: normal external genitalia Extremities: no cyanosis Skin: no rash Microbiology Date/Time Source Procedure Growth Status 11/07/17 18:15 Urine,Clean Catch Urine Culture - Preliminary Proteus Mirabilis Enterococcus Faecalis Resulted Laboratory Tests 11/09/17 14:41: Stool Occult Blood Negative 11/10/17 05:30: White Blood Count 4.1L, Red Blood Count 2.64L, Hemoglobin 8.9L, Hematocrit 26.1L , Mean Corpuscular Volume 99, Mean Corpuscular Hemoglobin 33.6H, Mean Corpuscular Hemoglobin Concent 34.0, Red Cell Distribution Width 12.2, Platelet Count 156, Mean Platelet Volume 5.9L, Neutrophils (%) (Auto) 49.3, Lymphocytes ( %) (Auto) 33.5, Monocytes (%) (Auto) 13.7H, Eosinophils (%) (Auto) 2.6, Basophils (%) (Auto) 0.9, Sodium Level 143, Potassium Level 4.2, Chloride Level 110H, Carbon Dioxide Level 28, Anion Gap 5, Blood Urea Nitrogen 18, Creatinine 1.3, Estimat Glomerular Filtration Rate 41.3, Glucose Level 102, Uric Acid 7.9H , Calcium Level 8.9, Phosphorus Level 3.3, Magnesium Level 1.9, Total Bilirubin 0.3, Gamma Glutamyl Transpeptidase 14, Aspartate Amino Transf (AST/SGOT) 12L, Alanine Aminotransferase (ALT/SGPT) 27, Alkaline Phosphatase 58, Total Creatine Kinase 70, C-Reactive Protein, Quantitative 2.8H, Pro-B-Type Natriuretic Peptide 5340H, Total Protein 5.6L, Albumin 2.6L, Globulin 3.0, Albumin/Globulin Ratio 0.9L Current Medications Medications (Trade) Dose Ordered Sig/Leroy Route PRN Reason Start Time Stop Time Status Last Admin Dose Admin Acetaminophen (Tylenol) 650 mg Q4H PRN ORAL fever 11/07/17 15:15 12/06/17 19:14 Aripiprazole (Abilify) 30 mg DAILY ORAL 11/08/17 09:00 12/07/17 08:59 11/09/17 10:12 Chlorhexidine Gluconate (Bryanna-Hex 2%) 1 applic DAILY@1999 TOPIC 11/07/17 20:00 12/06/17 19:59 11/09/17 20:32 Clonidine HCl (Catapres Tab) 0.1 mg Q4H PRN ORAL SBP over 160 11/08/17 09:00 12/08/17 08:59 11/09/17 18:03 Dextrose/Sodium Chloride 1,000 ml @ 75 mls/hr [id number] IV 11/07/17 14:45 12/06/17 19:04 11/10/17 08:57 Fluoxetine HCl (PROzac) 40 mg DAILY ORAL 11/08/17 09:00 12/07/17 08:59 11/09/17 10:12 Gabapentin (Neurontin) 100 mg TID ORAL 11/07/17 13:00 12/07/17 12:59 11/09/17 18:03 Heparin Sodium (Porcine) (Heparin 5000 units/ml) 5,000 units EVERY 12 HOURS SUBQ 11/09/17 12:30 12/06/17 12:29 11/10/17 09:00 Lorazepam (Ativan 2mg/ml 1ml) 1 mg Q4H PRN IV agitation 11/07/17 15:15 11/13/17 19:14 11/09/17 06:37 Metoclopramide HCl (Reglan) 10 mg Q6H PRN IVP severe nausea 11/07/17 15:00 12/06/17 14:59 Metoprolol Tartrate (Lopressor) 50 mg Q12HR ORAL 11/09/17 21:00 12/09/17 20:59 11/09/17 20:35 Nitroglycerin (Ntg) 0.4 mg Q5M X 3 DOSES PRN SL Prn Chest Pain 11/07/17 14:45 12/06/17 19:14 Pantoprazole (Protonix) 40 mg DAILY IV 11/08/17 09:00 12/07/17 08:59 11/10/17 08:57 Polyethylene Glycol (Miralax) 17 gm HSPRN PRN ORAL Constipation 11/07/17 19:15 12/06/17 19:14 Promethazine HCl (Phenergan) 25 mg Q6H PRN IM REFRACTORY SEIZURE 11/07/17 15:00 12/06/17 14:59 Tamsulosin HCl (Flomax) 0.4 mg BEDTIME ORAL 11/07/17 21:00 12/06/17 20:59 11/09/17 20:35 Temazepam (Restoril) 15 mg HSPRN PRN ORAL Insomnia 11/07/17 19:15 11/13/17 19:14 Valproate Sodium 1000 mg/Dextrose 65 ml @ 32.5 mls/hr EVERY 12 HOURS IV 11/10/17 21:00 12/10/17 20:59 James Wing MD Nov 10, 2017 13:27
--- NOTE | 2017-11-10 14:19 | General Progress Note ---
Assessment/Plan Problem List: (1) Pancytopenia ICD Codes: D61.818 - Other pancytopenia SNOMED: 072115003 (2) Hyperkalemia ICD Codes: E87.5 - Hyperkalemia SNOMED: 04850860 (3) Renal failure ICD Codes: N19 - Unspecified kidney failure SNOMED: 48513321 (4) Gastroenteritis ICD Codes: K52.9 - Noninfective gastroenteritis and colitis, unspecified SNOMED: 79701827 (5) Altered mental status ICD Codes: R41.82 - Altered mental status, unspecified SNOMED: 577397069 (6) COPD (chronic obstructive pulmonary disease) ICD Codes: J44.9 - Chronic obstructive pulmonary disease, unspecified SNOMED: 21401412 (7) HTN (hypertension) ICD Codes: I10 - Essential (primary) hypertension SNOMED: 32732800 (8) Renal insufficiency ICD Codes: N28.9 - Disorder of kidney and ureter, unspecified SNOMED: 048865555, 601812907 (9) Acute encephalopathy ICD Codes: G93.40 - Encephalopathy, unspecified SNOMED: 77719105, 381817893 Status: unchanged Assessment/Plan ot pt diet abx heme eval gi f/u cbc bmp am Subjective Constitutional: Reports: weakness Allergies: Coded Allergies: LEVOFLOXACIN (Unverified Allergy, Unknown, 10/28/17) MEROPENEM (Unverified Allergy, Unknown, 10/28/17) PENICILLINS (Verified Allergy, Unknown, 03/17/16) All Systems: reviewed and negative except above Subjective o2nc ng sleep Objective Last 24 Hour Vital Signs Date Time Temp Pulse Resp B/P (MAP) Pulse Ox O2 Delivery O2 Flow Rate FiO2 11/10/17 12:00 97.8 89 24 164/75 (104) 96 97.8 11/10/17 08:00 Nasal Cannula 2.0 11/10/17 08:00 97.2 78 24 147/83 (104) 100 97.2 11/10/17 04:00 97.6 77 20 123/72 (89) 99 97.6 11/10/17 00:00 97.5 79 20 158/81 (106) 99 97.5 11/09/17 21:00 Nasal Cannula 3.0 11/09/17 20:41 98 Nasal Cannula 2.0 28 11/09/17 20:41 Nasal Cannula 2.0 28 11/09/17 20:35 95 162/89 11/09/17 20:00 97.8 98 20 169/85 (113) 99 97.8 11/09/17 18:03 170/93 11/09/17 16:00 97.7 93 23 170/93 (118) 96 97.7 Intake and Output 11/09/17 11/10/17 19:00 07:00 Intake Total 660 ml 1003.723 ml Output Total 600 ml Balance 660 ml 403.723 ml Intake Oral 120 ml IV Total 660 ml 883.723 ml Output Urine Total 600 ml # Voids 2 3 # Bowel Movements 2 Laboratory Tests 11/09/17 14:41: Stool Occult Blood Negative 11/10/17 05:30: White Blood Count 4.1L, Red Blood Count 2.64L, Hemoglobin 8.9L, Hematocrit 26.1L , Mean Corpuscular Volume 99, Mean Corpuscular Hemoglobin 33.6H, Mean Corpuscular Hemoglobin Concent 34.0, Red Cell Distribution Width 12.2, Platelet Count 156, Mean Platelet Volume 5.9L, Neutrophils (%) (Auto) 49.3, Lymphocytes ( %) (Auto) 33.5, Monocytes (%) (Auto) 13.7H, Eosinophils (%) (Auto) 2.6, Basophils (%) (Auto) 0.9, Sodium Level 143, Potassium Level 4.2, Chloride Level 110H, Carbon Dioxide Level 28, Anion Gap 5, Blood Urea Nitrogen 18, Creatinine 1.3, Estimat Glomerular Filtration Rate 41.3, Glucose Level 102, Uric Acid 7.9H , Calcium Level 8.9, Phosphorus Level 3.3, Magnesium Level 1.9, Total Bilirubin 0.3, Gamma Glutamyl Transpeptidase 14, Aspartate Amino Transf (AST/SGOT) 12L, Alanine Aminotransferase (ALT/SGPT) 27, Alkaline Phosphatase 58, Total Creatine Kinase 70, C-Reactive Protein, Quantitative 2.8H, Pro-B-Type Natriuretic Peptide 5340H, Total Protein 5.6L, Albumin 2.6L, Globulin 3.0, Albumin/Globulin Ratio 0.9L Height (Feet): 5 Height (Inches): 4.00 Weight (Pounds): 210 General Appearance: lethargic EENT: normal ENT inspection Neck: normal alignment Cardiovascular: normal peripheral pulses, normal rate, regular rhythm Respiratory/Chest: chest wall non-tender, lungs clear, normal breath sounds Abdomen: normal bowel sounds, non tender, soft Extremities: normal inspection Edema: no edema noted Arm (L), no edema noted Arm (R), no edema noted Leg (L), no edema noted Leg (R), no edema noted Pedal (L), no edema noted Pedal (R), no edema noted Generalized Neurologic: motor weakness Skin: normal pigmentation, warm/dry Vance Armstrong DO Nov 10, 2017 14:19
[2017-11-10 16:00] VITALS: BP 156/88
--- NOTE | 2017-11-10 16:15 | Diagnostic Imaging Report ---
Indication: Abdominal pain Comparison: None Single view of the abdomen obtained Findings: Nasogastric tube is present with both ports in the stomach lumen in good position. Bowel gas pattern is nonspecific. There are surgical clips in the upper abdomen. Degenerative changes of the thoracolumbar spine demonstrated. Obscured left hemidiaphragm and costophrenic angle blunting noted. IMPRESSION: NG tube in good position. Suspected left pleural effusion versus pleural thickening.
--- NOTE | 2017-11-10 19:15 | Consultation ---
DATE OF CONSULTATION: 11/10/2017 NEUROLOGY CONSULTATION CONSULTING PHYSICIAN: Darnell Britt M.D. REQUESTING PHYSICIAN: Vance Armstrong D.O. HISTORY: Ms. Elana May is a 62-year-old, right-handed, lady, who had a stroke numerous years ago when she was using intravenous heroin. As a result of the stroke, she became weak on her left side, lost the use of her left upper extremity, had significant problems with walking and noticed visual problems on the left side. Over the years, she has improved a little bit, but has stabilized for many years. She then also developed a poststroke seizure disorder. She is unable to give me a better description of her seizures. She also has a history of schizoaffective disorder of a bipolar type, COPD, renal failure and hypertension. She apparently lives in a long term facility where she was noted to have an alteration in her mental state and was vomiting. As a result of that, she was brought into the [facility] emergency room. She was discovered to have a urinary tract infection and was dehydrated and has been treated for the urinary tract infection with antibiotics and rehydrated. She however has been noted to have an alteration in her mental state that continues to wax and wane and in addition, a brain CT scan was done, which revealed suspicion of an acute cerebrovascular event. This consultation was thus requested. At this point in time, the patient feels relatively well and is eager to go home. She denies any increased weakness on one side or the other, numbness on one side or the other, changes in vision, changes in speech, changes in language or changes in her memory. PAST MEDICAL HISTORY: Significant for heroin use associated with a stroke numerous years ago, poststroke seizure disorder, schizoaffective disorder of the bipolar type, COPD, renal failure and hypertension. FAMILY HISTORY: Nothing significant as per the patient. PERSONAL HISTORY: Home: She lives in [facility]. Work: She has been unemployed for numerous years. Habits: She used to use heroin in the past, but stopped using it after she had a stroke. She denies the use of tobacco or alcohol. PRESENT MEDICATIONS: Metoprolol, heparin for DVT prophylaxis, Depacon 500 mg intravenously q.12 h., Abilify, Prozac, Protonix, clonidine, Flomax, MiraLAX, Restoril, Ativan p.r.n., Reglan p.r.n., Phenergan p.r.n., nitroglycerin p.r.n., and gabapentin 100 mg 3 times a day. PHYSICAL EXAMINATION: GENERAL: The patient is a well-developed well-nourished obese lady, lying in bed, in no acute distress. VITAL SIGNS: Pulse 89/minute, blood pressure 164/75 mmHg, respirations 24/minute, temperature 97.8 degrees Fahrenheit. HEAD: Normocephalic and atraumatic. EENT: Examination benign. NECK: No neck rigidity was observed. NEUROLOGIC EXAMINATION: MENTAL STATUS EXAMINATION: She was awake and alert. She was oriented to self, hospital, and 2018. She did not know the name of the hospital, date or the month. She was able to recall 3/3 words immediately, but could only remember 1/3 words in 1 minute and 3 minutes even on the second trial. She knew that Trump was president, but could not remember presidents prior to Trump. Her mathematical skills were impaired. Her visuospatial function was also impaired. SPEECH: She had a moderate dysarthria. LANGUAGE: She had anomia for low and mid frequency words. CRANIAL NERVE EXAMINATION: II: She had a left visual field cut. III, IV & : The external ocular movements were full and the pupils 3 mm in diameter, equal, round, regular, and reactive sluggishly to light. V: She had normal facial sensations, and the temporales, masseters, and pterygoids functioned normally. VII: She had left seventh central facial paresis. VIII: She was able to hear well bilaterally and had no nystagmus. IX: The palate moved symmetrically on phonation. X: She had no hoarseness of voice. XI: The sternocleidomastoids and trapezii functioned normally. XII: The tongue was in the midline without any fasciculations or atrophy. MOTOR SYSTEM: The tone was significantly increased on the left side with spasticity. Examination of muscle mass revealed wasting of the left upper extremity more than the left lower extremity. In addition, she also had her left upper extremity in a flexion contracture. The examination of power was difficult to perform because of varying degrees of cooperation. She however had approximately G 0/5 power in the left upper extremity, G 4-/5 power in the left lower extremity, G 5/5 power in the right upper extremity and G 4+/5 power in the right lower extremity. SENSORY EXAMINATION: She responded appropriately to deep pain. She was unable to cooperate for the sensory modalities. REFLEXES: 2+ on the right and 2++ on the left in the biceps, triceps, brachioradialis, and knees. 0 at both ankles. The plantar response was flexor on the right and extensor on the left. COORDINATION, STANCE & GAIT: Could not be tested. DIAGNOSTIC IMPRESSION: 1. Ms. 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 She also carries a history of schizoaffective disorder of the bipolar type, chronic obstructive pulmonary disease, renal failure and hypertension. She was hospitalized for an alteration in her mental state and vomiting. She was found to have urinary tract infection and has since been treated for it. 2. On neurological examination, at this time, she does demonstrate problems with orientation, recent and remote memory, visuospatial function, higher cognitive function, and language. She also has a significant dysarthria, left visual field cut, left seventh central facial paresis, left upper extremity plegia and lower extremity paresis, right lower extremity paresis and brisk deep tendon reflexes on the left side compared to the right. The plantar response is extensor on the left and flexor on the right. She is unable to stand and walk. 3. The CT scan of the brain without contrast was reviewed and it revealed a large remote infarct in the right occipital area and temporal area in the posterior cerebral artery distribution. No definite acute pathology was noted, but the radiologist felt that there was a possibility of acute ischemia. 4. Laboratory data obtained thus far have revealed that she is significantly anemic with a hemoglobin of 8.9. Her chemistry panel reveals that her BUN and creatinine were elevated when she came in, but are now within normal range with BUN of 18 and creatinine of 1.3. Her BNP is elevated. Her albumin is low at 2.6. Her valproic acid level is low at 35. Her urinalysis reveals 2+ leukocyte esterase, 0-2 RBCs, and 10-15 WBCs per high-power field. 5. The patient's history, neurological examination, laboratory data and imaging studies are most compatible with an old right brain stroke involving the posterior cerebral artery territory. I doubt that there is any new event in light of the patient giving us a history that her neurological symptoms have not changed. However, because of the doubt that the radiologist has put in our minds, she should be reimaged. 6. The patient does have a multifactorial encephalopathy. The encephalopathy is most probably due to the multiple electrolyte imbalances and in addition an acute infectious process. 7. She does have a history of seizures, but says that her seizures are relatively well controlled. Her valproic acid, however is subtherapeutic. RECOMMENDATIONS: 1. Agree with management thus far. 2. Would continue treatment of the patient's infectious process and correct the patient's electrolyte imbalances. In addition, her hemoglobin should be also corrected greater than 10 G. Her dose of Depacon will be increased to 1 G q.12 h. 3. An MRI scan of the brain will be ordered to evaluate the patient for acute intracranial pathology. 4. An EEG will be ordered to evaluate the patient for ongoing ictal or interictal phenomena, which could be altering her mental state. 5. The patient will be observed closely and depending on how she fares over the next day or so, further recommendations will be given. Thank you for entrusting me with the care of Ms. May. I shall follow her with you. Darnell Britt M.D., M.S.P.H. DR: SALIMA JOB#: [id number] [email or web address]
[2017-11-10 20:00] VITALS: BP 145/72
[2017-11-10] MEDS: Dyna-Hex 2% Top Sol 2oz TOPIC SCH (20:25)
[2017-11-10] MEDS: Tamsulosin 0.4mg cap ORAL SCH (20:26)
[2017-11-10] MEDS: Valproate Sodium INJ 1,000 MG in D5W 55 ML IV SCH (21:20)
[2017-11-11] VITALS: BP 140/71
[2017-11-11] MEDS: D5 1/2NS 1,000 ML IV SCH ×2 (02:45→12:15)
[2017-11-11 04:00] VITALS: BP 112/65
[2017-11-11 06:12] LABS: BASOPHILS % (AUTO) 0.7 % (0.0-2.0); EOSINOPHILS % (AUTO) 2.7 % (0.0-3.0); HEMATOCRIT 27.5 % (37.0-47.0); HEMOGLOBIN 9.1 G/DL (12.0-16.0); LYMPHOCYTES % (AUTO) 28.8 % (20.0-45.0); MEAN CORPUSCULAR VOLUME 100 FL (80-99); MONOCYTES % (AUTO) 12.9 % (1.0-10.0); PLATELET COUNT 148 K/UL (150-450); RED BLOOD COUNT 2.77 M/UL (4.20-5.40); RED CELL DISTRIBUTION WIDTH 12.9 % (11.6-14.8); WHITE BLOOD COUNT 4.5 K/UL (4.8-10.8)
--- NOTE | 2017-11-11 06:33 | Diagnostic Imaging Report ---
EXAM: XR Abdomen, 2 Views CLINICAL HISTORY: NGT TECHNIQUE: Frontal view of the abdomen/pelvis with upright view of the abdomen. COMPARISON: No relevant prior studies available. FINDINGS: Lower thorax: Left basilar airspace disease and/or effusion. Gastrointestinal tract: Nonspecific bowel gas in the visualized upper abdomen. No dilation. Bones/joints: Unremarkable. Tubes, lines and devices: NG tube present which appears looped in the proximal stomach. IMPRESSION: NG tube, looped in the proximal stomach.
[2017-11-11 06:35] LABS: ANION GAP 6 mmol/L (5-15); BLOOD UREA NITROGEN 13 mg/dL (7-18); CALCIUM 8.5 MG/DL (8.5-10.1); CARBON DIOXIDE 28 MMOL/L (21-32); CHLORIDE 109 MMOL/L (98-107); CREATININE 1.3 MG/DL (0.55-1.30); POTASSIUM 4.2 MMOL/L (3.5-5.1); SODIUM 142 MMOL/L (136-145)
[2017-11-11 08:00] VITALS: BP 132/60
--- NOTE | 2017-11-11 08:28 | Infectious Diseases Prog Note ---
Assessment/Plan Assessment/Plan 62 yo female who presented to the ED on 11/06/17 from her [facility] with AMS and vomiting. Encephalopathy Resolved Vomiting - Unclear etiology Viral enteritis, Medication, Food toxin? Resolved Bacteriuria - Infection unlikely UCx - Strep and GNR (Low levels) 11/06 - UA neg HTN TX CAD COPD GERD CVA/TIA Psych Hx Renal Disease Plan: Stable clinically monitor off Abx Monitor CBC and Temps We will continue to follow the patient during this hospitalization. Subjective Allergies: Coded Allergies: LEVOFLOXACIN (Unverified Allergy, Unknown, 10/28/17) MEROPENEM (Unverified Allergy, Unknown, 10/28/17) PENICILLINS (Verified Allergy, Unknown, 03/17/16) Subjective Laying in bed Afebrile Awake Objective Vital Signs Last 24 Hour Vital Signs Date Time Temp Pulse Resp B/P (MAP) Pulse Ox O2 Delivery O2 Flow Rate FiO2 11/11/17 08:00 97.7 80 18 132/60 (84) 100 97.7 11/11/17 04:00 97.8 71 15 112/65 (81) 99 97.8 11/11/17 00:00 97.2 86 18 140/71 (94) 100 97.2 11/10/17 21:00 Nasal Cannula 2.0 11/10/17 20:25 74 148/79 11/10/17 20:00 97.5 83 16 145/72 (96) 100 97.5 11/10/17 19:49 97 Nasal Cannula 2.0 28 11/10/17 19:49 Nasal Cannula 2.0 28 11/10/17 16:00 98.6 88 24 156/88 (110) 100 98.6 11/10/17 12:00 97.8 89 24 164/75 (104) 96 97.8 Height (Feet): 5 Height (Inches): 4.00 Weight (Pounds): 210 Objective Gen: NAD, Awake HEENT: NCAT, MMM, no scleral icterus LUNGS: CTAB, No W/C, No Accessory muscle use CARDS: RRR, S1, S2, No M/R/G ABD: Soft, ND, No R/G, + BS, No HSM, No Masses Ext: C/C/E, Pulses 2+ B/L (DP, Rad) NEURO: A/O x 1 Laboratory Tests Test 11/11/17 05:00 White Blood Count 4.5 K/UL (4.8-10.8) L Red Blood Count 2.77 M/UL (4.20-5.40) L Hemoglobin 9.1 G/DL (12.0-16.0) L Hematocrit 27.5 % (37.0-47.0) L Mean Corpuscular Volume 100 FL (80-99) H Mean Corpuscular Hemoglobin 32.8 PG (27.0-31.0) H Mean Corpuscular Hemoglobin Concent 33.0 G/DL (32.0-36.0) Red Cell Distribution Width 12.9 % (11.6-14.8) Platelet Count 148 K/UL (150-450) L Mean Platelet Volume 6.0 FL (6.5-10.1) L Neutrophils (%) (Auto) 55.0 % (45.0-75.0) Lymphocytes (%) (Auto) 28.8 % (20.0-45.0) Monocytes (%) (Auto) 12.9 % (1.0-10.0) H Eosinophils (%) (Auto) 2.7 % (0.0-3.0) Basophils (%) (Auto) 0.7 % (0.0-2.0) Sodium Level 142 MMOL/L (136-145) Potassium Level 4.2 MMOL/L (3.5-5.1) Chloride Level 109 MMOL/L (98-107) H Carbon Dioxide Level 28 MMOL/L (21-32) Anion Gap 6 mmol/L (5-15) Blood Urea Nitrogen 13 mg/dL (7-18) Creatinine 1.3 MG/DL (0.55-1.30) Estimat Glomerular Filtration Rate 41.3 mL/min (>60) Glucose Level 100 MG/DL (74-106) Calcium Level 8.5 MG/DL (8.5-10.1) Current Medications Medications (Trade) Dose Ordered Sig/Leroy Route PRN Reason Start Time Stop Time Status Last Admin Dose Admin Acetaminophen (Tylenol) 650 mg Q4H PRN ORAL fever 11/07/17 15:15 12/06/17 19:14 Aripiprazole (Abilify) 30 mg DAILY ORAL 11/08/17 09:00 12/07/17 08:59 11/09/17 10:12 Chlorhexidine Gluconate (Bryanna-Hex 2%) 1 applic DAILY@2000 TOPIC 11/07/17 20:00 12/06/17 19:59 11/10/17 20:25 Clonidine HCl (Catapres Tab) 0.1 mg Q4H PRN ORAL SBP over 160 11/08/17 09:00 12/08/17 08:59 11/09/17 18:03 Dextrose/Sodium Chloride 1,000 ml @ 75 mls/hr [id number] IV 11/07/17 14:45 12/06/17 19:04 11/11/17 02:45 Fluoxetine HCl (PROzac) 40 mg DAILY ORAL 11/08/17 09:00 12/07/17 08:59 11/09/17 10:12 Gabapentin (Neurontin) 100 mg TID ORAL 11/07/17 13:00 12/07/17 12:59 11/10/17 18:11 Heparin Sodium (Porcine) (Heparin 5000 units/ml) 5,000 units EVERY 12 HOURS SUBQ 11/09/17 12:30 12/06/17 12:29 11/10/17 20:28 Lorazepam (Ativan 2mg/ml 1ml) 1 mg Q4H PRN IV agitation 11/07/17 15:15 11/13/17 19:14 11/09/17 06:37 Metoclopramide HCl (Reglan) 10 mg Q6H PRN IVP severe nausea 11/07/17 15:00 12/06/17 14:59 Metoprolol Tartrate (Lopressor) 50 mg Q12HR ORAL 11/09/17 21:00 12/09/17 20:59 11/10/17 20:25 Nitroglycerin (Ntg) 0.4 mg Q5M X 3 DOSES PRN SL Prn Chest Pain 11/07/17 14:45 12/06/17 19:14 Pantoprazole (Protonix) 40 mg DAILY IV 11/08/17 09:00 12/07/17 08:59 11/10/17 08:57 Polyethylene Glycol (Miralax) 17 gm HSPRN PRN ORAL Constipation 11/07/17 19:15 12/06/17 19:14 Promethazine HCl (Phenergan) 25 mg Q6H PRN IM REFRACTORY SEIZURE 11/07/17 15:00 12/06/17 14:59 Tamsulosin HCl (Flomax) 0.4 mg BEDTIME ORAL 11/07/17 21:00 12/06/17 20:59 11/10/17 20:26 Temazepam (Restoril) 15 mg HSPRN PRN ORAL Insomnia 11/07/17 19:15 11/13/17 19:14 Valproate Sodium 1000 mg/Dextrose 65 ml @ 32.5 mls/hr EVERY 12 HOURS IV 11/10/17 21:00 12/10/17 20:59 11/10/17 21:20 Terry Wagoner MD Nov 11, 2017 08:28
[2017-11-11] MEDS: Heparin 5000 units/ml inj SUBQ SCH ×2 (09:00→20:40)
--- NOTE | 2017-11-11 09:09 | Nephrology Progress Note ---
Assessment/Plan Problem List: (1) Acute renal failure (ARF) (2) Hyperkalemia (3) Acute encephalopathy (4) COPD (chronic obstructive pulmonary disease) (5) Anemia Assessment Acute renal failure- Hyperkalemia Acute encephalopathy COPD HTN Anemia UTI Plan Adjust BP meds- increase lopressor IV hydration Adjust mind altering meds breathing treatment UTI treatment mag and phos supplement has NGT now per orders Subjective ROS Limited/Unobtainable: No Constitutional: Reports: malaise Objective Objective Last 24 Hour Vital Signs Date Time Temp Pulse Resp B/P (MAP) Pulse Ox O2 Delivery O2 Flow Rate FiO2 11/11/17 08:00 97.7 80 18 132/60 (84) 100 97.7 11/11/17 04:00 97.8 71 15 112/65 (81) 99 97.8 11/11/17 00:00 97.2 86 18 140/71 (94) 100 97.2 11/10/17 21:00 Nasal Cannula 2.0 11/10/17 20:25 74 148/79 11/10/17 20:00 97.5 83 16 145/72 (96) 100 97.5 11/10/17 19:49 97 Nasal Cannula 2.0 28 11/10/17 19:49 Nasal Cannula 2.0 28 11/10/17 16:00 98.6 88 24 156/88 (110) 100 98.6 11/10/17 12:00 97.8 89 24 164/75 (104) 96 97.8 Intake and Output 11/10/17 11/11/17 19:00 07:00 Intake Total 465 ml 910.0 ml Output Total 1000 ml Balance -535 ml 910.0 ml Free Water 60 ml IV Total 450 ml 665.0 ml Tube Feeding 15 ml 185 ml Output Urine Total 1000 ml Laboratory Tests 11/11/17 05:00: White Blood Count 4.5L, Red Blood Count 2.77L, Hemoglobin 9.1L, Hematocrit 27.5L , Mean Corpuscular Volume 100H, Mean Corpuscular Hemoglobin 32.8H, Mean Corpuscular Hemoglobin Concent 33.0, Red Cell Distribution Width 12.9, Platelet Count 148L, Mean Platelet Volume 6.0L, Neutrophils (%) (Auto) 55.0, Lymphocytes (%) (Auto) 28.8, Monocytes (%) (Auto) 12.9H, Eosinophils (%) (Auto) 2.7, Basophils (%) (Auto) 0.7, Sodium Level 142, Potassium Level 4.2, Chloride Level 109H, Carbon Dioxide Level 28, Anion Gap 6, Blood Urea Nitrogen 13, Creatinine 1.3, Estimat Glomerular Filtration Rate 41.3, Glucose Level 100, Calcium Level 8.5 Height (Feet): 5 Height (Inches): 4.00 Weight (Pounds): 210 General Appearance: no apparent distress, lethargic EENT: other - NGT Respiratory/Chest: decreased breath sounds Abdomen: soft Objective no change John Paul Urias MD Nov 11, 2017 09:09
--- NOTE | 2017-11-11 09:18 | General Progress Note ---
Assessment/Plan Problem List: (1) Pancytopenia ICD Codes: D61.818 - Other pancytopenia SNOMED: 213723863 (2) Hyperkalemia ICD Codes: E87.5 - Hyperkalemia SNOMED: 07981006 (3) Renal failure ICD Codes: N19 - Unspecified kidney failure SNOMED: 20876948 (4) Gastroenteritis ICD Codes: K52.9 - Noninfective gastroenteritis and colitis, unspecified SNOMED: 76338825 (5) Altered mental status ICD Codes: R41.82 - Altered mental status, unspecified SNOMED: 011214134 (6) COPD (chronic obstructive pulmonary disease) ICD Codes: J44.9 - Chronic obstructive pulmonary disease, unspecified SNOMED: 40292756 (7) HTN (hypertension) ICD Codes: I10 - Essential (primary) hypertension SNOMED: 93404323 (8) Renal insufficiency ICD Codes: N28.9 - Disorder of kidney and ureter, unspecified SNOMED: 607093826, 178313082 (9) Acute encephalopathy ICD Codes: G93.40 - Encephalopathy, unspecified SNOMED: 67203390, 457827514 Status: unchanged Assessment/Plan ot pt diet abx heme eval gi f/u cbc bmp am Subjective Constitutional: Reports: weakness Allergies: Coded Allergies: LEVOFLOXACIN (Unverified Allergy, Unknown, 10/28/17) MEROPENEM (Unverified Allergy, Unknown, 10/28/17) PENICILLINS (Verified Allergy, Unknown, 03/17/16) All Systems: reviewed and negative except above Subjective o2nc ng sleep Objective Last 24 Hour Vital Signs Date Time Temp Pulse Resp B/P (MAP) Pulse Ox O2 Delivery O2 Flow Rate FiO2 11/11/17 08:00 97.7 80 18 132/60 (84) 100 97.7 11/11/17 04:00 97.8 71 15 112/65 (81) 99 97.8 11/11/17 00:00 97.2 86 18 140/71 (94) 100 97.2 11/10/17 21:00 Nasal Cannula 2.0 11/10/17 20:25 74 148/79 11/10/17 20:00 97.5 83 16 145/72 (96) 100 97.5 11/10/17 19:49 97 Nasal Cannula 2.0 28 11/10/17 19:49 Nasal Cannula 2.0 28 11/10/17 16:00 98.6 88 24 156/88 (110) 100 98.6 11/10/17 12:00 97.8 89 24 164/75 (104) 96 97.8 Intake and Output 11/10/17 11/11/17 19:00 07:00 Intake Total 465 ml 910.0 ml Output Total 1000 ml Balance -535 ml 910.0 ml Free Water 60 ml IV Total 450 ml 665.0 ml Tube Feeding 15 ml 185 ml Output Urine Total 1000 ml Laboratory Tests 11/11/17 05:00: White Blood Count 4.5L, Red Blood Count 2.77L, Hemoglobin 9.1L, Hematocrit 27.5L , Mean Corpuscular Volume 100H, Mean Corpuscular Hemoglobin 32.8H, Mean Corpuscular Hemoglobin Concent 33.0, Red Cell Distribution Width 12.9, Platelet Count 148L, Mean Platelet Volume 6.0L, Neutrophils (%) (Auto) 55.0, Lymphocytes (%) (Auto) 28.8, Monocytes (%) (Auto) 12.9H, Eosinophils (%) (Auto) 2.7, Basophils (%) (Auto) 0.7, Sodium Level 142, Potassium Level 4.2, Chloride Level 109H, Carbon Dioxide Level 28, Anion Gap 6, Blood Urea Nitrogen 13, Creatinine 1.3, Estimat Glomerular Filtration Rate 41.3, Glucose Level 100, Calcium Level 8.5 Height (Feet): 5 Height (Inches): 4.00 Weight (Pounds): 210 General Appearance: lethargic EENT: normal ENT inspection Neck: normal alignment Cardiovascular: normal peripheral pulses, normal rate, regular rhythm Respiratory/Chest: chest wall non-tender, lungs clear, normal breath sounds Abdomen: normal bowel sounds, non tender, soft Extremities: normal inspection Edema: no edema noted Arm (L), no edema noted Arm (R), no edema noted Leg (L), no edema noted Leg (R), no edema noted Pedal (L), no edema noted Pedal (R), no edema noted Generalized Neurologic: motor weakness Skin: normal pigmentation, warm/dry Vance Armstrong DO Nov 11, 2017 09:18
[2017-11-11] MEDS: Pantoprazole Inj IV SCH (09:29)
[2017-11-11] MEDS: Metoprolol Tartrate 50mg tab ORAL SCH ×2 (09:30→20:36)
[2017-11-11] MEDS: ARIPiprazole 10mg tab ORAL SCH (09:30)
[2017-11-11] MEDS: Valproate Sodium INJ 1,000 MG in D5W 55 ML IV SCH ×2 (09:30→20:50)
[2017-11-11 12:00] VITALS: BP 118/70
[2017-11-11] MEDS ORDERED: D5 1/2NS 1000ml IV ONE (13:01)
--- NOTE | 2017-11-11 13:37 | Neurology Progress Note ---
Interim History Interim History Interim History Ms. May feels a little better today. She was unable to get her MRI yesterday as she could not lay flat. Her cerebration is still slow. She continues to be cognitively impoverished. She denies any new neurologic symptoms. She has a NGT for feeding. Review of Systems Neuro Review of Systems Benign. Objective Physical Exam Last Vital Signs Date Time Temp Pulse Resp B/P (MAP) Pulse Ox O2 Delivery O2 Flow Rate FiO2 11/11/17 12:00 97.5 68 18 118/70 (86) 100 97.5 11/11/17 09:00 Nasal Cannula 2.0 11/10/17 19:49 28 Laboratory Tests Test 11/11/17 05:00 White Blood Count 4.5 K/UL (4.8-10.8) L Red Blood Count 2.77 M/UL (4.20-5.40) L Hemoglobin 9.1 G/DL (12.0-16.0) L Hematocrit 27.5 % (37.0-47.0) L Mean Corpuscular Volume 100 FL (80-99) H Mean Corpuscular Hemoglobin 32.8 PG (27.0-31.0) H Mean Corpuscular Hemoglobin Concent 33.0 G/DL (32.0-36.0) Red Cell Distribution Width 12.9 % (11.6-14.8) Platelet Count 148 K/UL (150-450) L Mean Platelet Volume 6.0 FL (6.5-10.1) L Neutrophils (%) (Auto) 55.0 % (45.0-75.0) Lymphocytes (%) (Auto) 28.8 % (20.0-45.0) Monocytes (%) (Auto) 12.9 % (1.0-10.0) H Eosinophils (%) (Auto) 2.7 % (0.0-3.0) Basophils (%) (Auto) 0.7 % (0.0-2.0) Sodium Level 142 MMOL/L (136-145) Potassium Level 4.2 MMOL/L (3.5-5.1) Chloride Level 109 MMOL/L (98-107) H Carbon Dioxide Level 28 MMOL/L (21-32) Anion Gap 6 mmol/L (5-15) Blood Urea Nitrogen 13 mg/dL (7-18) Creatinine 1.3 MG/DL (0.55-1.30) Estimat Glomerular Filtration Rate 41.3 mL/min (>60) Glucose Level 100 MG/DL (74-106) Calcium Level 8.5 MG/DL (8.5-10.1) Neurologic Exam Objective PHYSICAL EXAMINATION: GENERAL: The patient is a well-developed well-nourished obese lady, lying in bed, in no acute distress. HEAD: Normocephalic and atraumatic. EENT: Examination benign. NECK: No neck rigidity was observed. NEUROLOGIC EXAMINATION: MENTAL STATUS EXAMINATION: She was awake but not completely alert. She was oriented to self, hospital, and 2018. She did not know the name of the hospital, date or the month. She was able to recall 3/3 words immediately, but could only remember 1/3 words in 1 minute and 3 minutes even on the second trial. She knew that Trump was president, but could not remember presidents prior to Trump. Her mathematical skills were impaired. Her visuospatial function was also impaired. SPEECH: She had a moderate dysarthria. LANGUAGE: She had anomia for low and mid frequency words. CRANIAL NERVE EXAMINATION: II: She had a left visual field cut. III, IV & : The external ocular movements were full and the pupils 3 mm in diameter, equal, round, regular, and reactive sluggishly to light. V: She had normal facial sensations, and the temporales, masseters, and pterygoids functioned normally. VII: She had left seventh central facial paresis. VIII: She was able to hear well bilaterally and had no nystagmus. IX: The palate moved symmetrically on phonation. X: She had no hoarseness of voice. XI: The sternocleidomastoids and trapezii functioned normally. XII: The tongue was in the midline without any fasciculations or atrophy. MOTOR SYSTEM: The tone was significantly increased on the left side with spasticity. Examination of muscle mass revealed wasting of the left upper extremity more than the left lower extremity. In addition, she also had her left upper extremity in a flexion contracture. The examination of power was difficult to perform because of varying degrees of cooperation. She however had approximately G 0/5 power in the left upper extremity, G 4-/5 power in the left lower extremity, G 5/5 power in the right upper extremity and G 4+/5 power in the right lower extremity. SENSORY EXAMINATION: She responded appropriately to deep pain. She was unable to cooperate for the sensory modalities. REFLEXES: 2+ on the right and 2++ on the left in the biceps, triceps, brachioradialis, and knees. 0 at both ankles. The plantar response was flexor on the right and extensor on the left. COORDINATION, STANCE & GAIT: Could not be tested. Impression/Recommendations Diagnostic Impression 1. Ms. 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 She also carries a history of schizoaffective disorder of the bipolar type, chronic obstructive pulmonary disease, renal failure and hypertension. She was hospitalized for an alteration in her mental state and vomiting. She was found to have urinary tract infection and has since been treated for it. 2. She feels a little better today. She was unable to get her MRI yesterday as she could not lay flat. Her cerebration is still slow. She continues to be cognitively impoverished. She denies any new neurologic symptoms. She has a NGT for feeding. 3. On neurological examination, at this time, she does demonstrate problems with orientation, recent and remote memory, visuospatial function, higher cognitive function, and language. She also has a significant dysarthria, left visual field cut, left seventh central facial paresis, left upper extremity plegia and lower extremity paresis, right lower extremity paresis and brisk deep tendon reflexes on the left side compared to the right. The plantar response is extensor on the left and flexor on the right. She is unable to stand and walk. 4. The CT scan of the brain without contrast was reviewed and it revealed a large remote infarct in the right occipital area and temporal area in the posterior cerebral artery distribution. No definite acute pathology was noted, but the radiologist felt that there was a possibility of acute ischemia. 5. Laboratory data obtained thus far have revealed that she is significantly anemic with a hemoglobin of 8.9. Her chemistry panel reveals that her BUN and creatinine were elevated when she came in, but are now within normal range with BUN of 18 and creatinine of 1.3. Her BNP is elevated. Her albumin is low at 2.6. Her valproic acid level is low at 35. Her urinalysis reveals 2+ leukocyte esterase, 0-2 RBCs, and 10-15 WBCs per high-power field. 6. The EEG done on 11/10/17 revealed a mild encephalopathy with inability to awaken for an awake tracing. 7. The patient's history, neurological examination, laboratory data and imaging studies are most compatible with an old right brain stroke involving the posterior cerebral artery territory. I doubt that there is any new event in light of the patient giving us a history that her neurological symptoms have not changed. 8. The patient does have a multifactorial encephalopathy. The encephalopathy is most probably due to the multiple electrolyte imbalances and in addition an acute infectious process. 9. She does have a history of seizures, but says that her seizures are relatively well controlled. Her valproic acid was subtherapeutic. He dose has since been increased. 10. She was unable to lie flat for her Brain MRI. Recommendations 1. Continue present management . 2. Would continue treatment of the patient's infectious process and correct the patient's electrolyte imbalances. In addition, her hemoglobin should be also corrected greater than 10 G. 3. Continue Depacon 1 G q.12 h. 4. Observed closely. Sana Britt M.D., M.S.P.SANA BACH Nov 11, 2017 13:37
[2017-11-11 16:01] VITALS: BP 138/68
--- NOTE | 2017-11-11 16:15 | Electroencephalogram ---
DATE OF PROCEDURE: 11/10/2017 REQUESTING PHYSICIAN: Vance Armstrong D.O. READING PHYSICIAN: Darnell Britt M.D. PROCEDURE PERFORMED: Electroencephalogram. HISTORY: This EEG was performed on a 62-year-old lady with a history of a remote stroke numerous years ago associated with heroin use, a poststroke seizure disorder, and schizoaffective disorder. The patient was hospitalized for an altered mental state associated with an infectious process. Since she has been here, she has exhibited some waxing and waning of her mental state and thus this EEG was performed to evaluate the patient for the degree and type of cerebral dysfunction and to exclude ongoing ictal or interictal phenomena. TECHNICAL NOTE: This EEG was performed on a [employer] Unit with electrodes placed on the scalp according to the International 10-20 system. [id number] and ocmit-xa-[id number] montages were used. The EEG was technically satisfactory and was performed in the drowsy and sleep states. Attempts were made to arouse the patient, but there was no wakefulness seen. OBSERVATIONS: During most of the tracing, the patient was drowsy with a background predominantly in the 5-6 Hz theta range. Stage II sleep was characterized by slowing of the background in the delta and theta range and the presence of vertex waves. When attempts were made to arouse the patient, no definite wakefulness was noted. No focal abnormalities or epileptiform discharges were seen. IMPRESSION: 1. This is an abnormal EEG characterized by an inability to arouse the patient even when multiple attempts were made. 2. Normal drowsy and sleep patterns were seen. COMMENT: The study is consistent with an encephalopathy of a mild degree. Please note that the drowsy and sleep record was within normal range. Darnell Britt M.D., M.S.P.H. DR: MILENA JOB#: [id number] MTDD
--- NOTE | 2017-11-11 16:55 | General Progress Note ---
Assessment/Plan Assessment/Plan # Anemia of chronic disease - labs reviewed and noted to have elevated ferritin and low tibc, potentially 2/2 to hepatitis C --> anemia also related to rich on ckd --> workup has been reviewed and results as noted above --> no e/o hemolysis --> hgb goal >7 and transfuse prn basis # Leukopenia with a wbc of 3-4.5, is very likely related to history of hepatitis C --> hepatitis shows hep C and hiv is negative --> us of the abdomen is somewhat limited exam, as described, Negative for gallstones or dilated ducts, Note nonvisualization of the left kidney and portions of the pancreas # Coagulopathy based on PTT high, potentially 2/2 to hepatitis C --> obtain INR/[place] repeat # Encephalopathy Resolved # Vomiting - Unclear etiology Viral enteritis, Medication, Food toxin? --> Resolved Greatly appreciate consultation! Subjective Constitutional: Reports: no symptoms HEENT: Reports: no symptoms Cardiovascular: Reports: no symptoms Respiratory: Reports: no symptoms Gastrointestinal/Abdominal: Reports: no symptoms Genitourinary: Reports: no symptoms Neurologic/Psychiatric: Reports: no symptoms Endocrine: Reports: no symptoms Hematologic/Lymphatic: Reports: anemia Allergies: Coded Allergies: LEVOFLOXACIN (Unverified Allergy, Unknown, 10/28/17) MEROPENEM (Unverified Allergy, Unknown, 10/28/17) PENICILLINS (Verified Allergy, Unknown, 03/17/16) Subjective eating minimally, has a NGT in place Objective Last 24 Hour Vital Signs Date Time Temp Pulse Resp B/P (MAP) Pulse Ox O2 Delivery O2 Flow Rate FiO2 11/11/17 16:01 96.7 71 20 138/68 (91) 100 96.7 11/11/17 12:00 97.5 68 18 118/70 (86) 100 97.5 11/11/17 09:30 80 132/60 11/11/17 09:00 Nasal Cannula 2.0 11/11/17 08:00 97.7 80 18 132/60 (84) 100 97.7 11/11/17 04:00 97.8 71 15 112/65 (81) 99 97.8 11/11/17 00:00 97.2 86 18 140/71 (94) 100 97.2 11/10/17 21:00 Nasal Cannula 2.0 11/10/17 20:25 74 148/79 11/10/17 20:00 97.5 83 16 145/72 (96) 100 97.5 11/10/17 19:49 97 Nasal Cannula 2.0 28 11/10/17 19:49 Nasal Cannula 2.0 28 Intake and Output 11/10/17 11/11/17 19:00 07:00 Intake Total 465 ml 1020.0 ml Output Total 1000 ml Balance -535 ml 1020.0 ml Free Water 60 ml IV Total 450 ml 740.0 ml Tube Feeding 15 ml 220 ml Output Urine Total 1000 ml Laboratory Tests 11/11/17 05:00: White Blood Count 4.5L, Red Blood Count 2.77L, Hemoglobin 9.1L, Hematocrit 27.5L , Mean Corpuscular Volume 100H, Mean Corpuscular Hemoglobin 32.8H, Mean Corpuscular Hemoglobin Concent 33.0, Red Cell Distribution Width 12.9, Platelet Count 148L, Mean Platelet Volume 6.0L, Neutrophils (%) (Auto) 55.0, Lymphocytes (%) (Auto) 28.8, Monocytes (%) (Auto) 12.9H, Eosinophils (%) (Auto) 2.7, Basophils (%) (Auto) 0.7, Sodium Level 142, Potassium Level 4.2, Chloride Level 109H, Carbon Dioxide Level 28, Anion Gap 6, Blood Urea Nitrogen 13, Creatinine 1.3, Estimat Glomerular Filtration Rate 41.3, Glucose Level 100, Calcium Level 8.5 Height (Feet): 5 Height (Inches): 4.00 Weight (Pounds): 210 General Appearance: no apparent distress EENT: TMs normal Neck: supple Cardiovascular: regular rhythm Respiratory/Chest: lungs clear Abdomen: no mass Extremities: normal inspection Edema: 1+ Leg (L), 1+ Leg (R) Edema: mild edema Neurologic: alert Skin: warm/dry Nilo Savage MD Nov 11, 2017 16:55
[2017-11-11 18:25] LABS: INR 1.1 (0.9-1.1)
--- NOTE | 2017-11-11 18:47 | General Progress Note ---
Assessment/Plan Assessment/Plan Assessment (1) Fatty liver, alcoholic ICD Codes: K70.0 - Alcoholic fatty liver SNOMED: 50171387 (2) Acute encephalopathy ICD Codes: G93.40 - Encephalopathy, unspecified SNOMED: 64282001, 765277426 (3) Altered mental status ICD Codes: R41.82 - Altered mental status, unspecified SNOMED: 752211295 (4) Gastroenteritis ICD Codes: K52.9 - Noninfective gastroenteritis and colitis, unspecified SNOMED: 31586192 (5) Pancytopenia ICD Codes: D61.818 - Other pancytopenia SNOMED: 623244195 (6) Vomiting ICD Codes: R11.10 - Vomiting, unspecified SNOMED: 015029995 Status: unchanged (7) Hepatitis C (+) . Assessment/Plan Head CT reviewed >> Large remote infarct centered in the right occipital lobe/ right [employer] territory. anemia work up reviewed NGT until swallow checked defer GI procedures, fu neurology supportive care electrolyte correction OB stool r/o GI bleed monitor H&H, prn transfusions bowel regime ppi zofran prn fu labs Subjective Allergies: Coded Allergies: LEVOFLOXACIN (Unverified Allergy, Unknown, 10/28/17) MEROPENEM (Unverified Allergy, Unknown, 10/28/17) PENICILLINS (Verified Allergy, Unknown, 03/17/16) Subjective Feels OK no new symptoms tolerating TF Objective Last 24 Hour Vital Signs Date Time Temp Pulse Resp B/P (MAP) Pulse Ox O2 Delivery O2 Flow Rate FiO2 11/11/17 16:01 96.7 71 20 138/68 (91) 100 96.7 11/11/17 12:00 97.5 68 18 118/70 (86) 100 97.5 11/11/17 09:30 80 132/60 11/11/17 09:00 Nasal Cannula 2.0 11/11/17 08:00 97.7 80 18 132/60 (84) 100 97.7 11/11/17 04:00 97.8 71 15 112/65 (81) 99 97.8 11/11/17 00:00 97.2 86 18 140/71 (94) 100 97.2 11/10/17 21:00 Nasal Cannula 2.0 11/10/17 20:25 74 148/79 11/10/17 20:00 97.5 83 16 145/72 (96) 100 97.5 11/10/17 19:49 97 Nasal Cannula 2.0 28 11/10/17 19:49 Nasal Cannula 2.0 28 Intake and Output 11/10/17 11/11/17 19:00 07:00 Intake Total 465 ml 1020.0 ml Output Total 1000 ml Balance -535 ml 1020.0 ml Free Water 60 ml IV Total 450 ml 740.0 ml Tube Feeding 15 ml 220 ml Output Urine Total 1000 ml Laboratory Tests 11/11/17 05:00: White Blood Count 4.5L, Red Blood Count 2.77L, Hemoglobin 9.1L, Hematocrit 27.5L , Mean Corpuscular Volume 100H, Mean Corpuscular Hemoglobin 32.8H, Mean Corpuscular Hemoglobin Concent 33.0, Red Cell Distribution Width 12.9, Platelet Count 148L, Mean Platelet Volume 6.0L, Neutrophils (%) (Auto) 55.0, Lymphocytes (%) (Auto) 28.8, Monocytes (%) (Auto) 12.9H, Eosinophils (%) (Auto) 2.7, Basophils (%) (Auto) 0.7, Sodium Level 142, Potassium Level 4.2, Chloride Level 109H, Carbon Dioxide Level 28, Anion Gap 6, Blood Urea Nitrogen 13, Creatinine 1.3, Estimat Glomerular Filtration Rate 41.3, Glucose Level 100, Calcium Level 8.5 11/11/17 18:00: Prothrombin Time 11.3, Prothromb Time International Ratio 1.1 Height (Feet): 5 Height (Inches): 4.00 Weight (Pounds): 210 Objective WDWN WW NCAT supple CTA RRR abd soft no edema restrained Piyush Pradhan MD Nov 11, 2017 18:47
[2017-11-11 20:00] VITALS: BP 150/77
[2017-11-11] MEDS: Tamsulosin 0.4mg cap ORAL SCH (20:36)
[2017-11-11] MEDS: Dyna-Hex 2% Top Sol 2oz TOPIC SCH (20:36)
[2017-11-11] MEDS: LORazepam Inj 2mg/ml 1ml IV PRN (22:13)
[2017-11-12] VITALS: BP 132/58
[2017-11-12] MEDS: D5 1/2NS 1,000 ML IV SCH ×2 (01:40→13:27)
[2017-11-12 04:00] VITALS: BP 121/58
[2017-11-12 06:27] LABS: BASOPHILS % (AUTO) 0.8 % (0.0-2.0); EOSINOPHILS % (AUTO) 3.2 % (0.0-3.0); HEMATOCRIT 25.9 % (37.0-47.0); HEMOGLOBIN 8.9 G/DL (12.0-16.0); MEAN CORPUSCULAR VOLUME 99 FL (80-99); MONOCYTES % (AUTO) 10.9 % (1.0-10.0); NEUTROPHILS % (AUTO) 47.1 % (45.0-75.0); PLATELET COUNT 142 K/UL (150-450); RED BLOOD COUNT 2.61 M/UL (4.20-5.40); RED CELL DISTRIBUTION WIDTH 12.8 % (11.6-14.8)
[2017-11-12 06:46] LABS: ANION GAP 4 mmol/L (5-15); BLOOD UREA NITROGEN 13 mg/dL (7-18); CALCIUM 8.6 MG/DL (8.5-10.1); CARBON DIOXIDE 29 MMOL/L (21-32); CHLORIDE 110 MMOL/L (98-107); CREATININE 1.2 MG/DL (0.55-1.30); POTASSIUM 3.9 MMOL/L (3.5-5.1); SODIUM 143 MMOL/L (136-145)
[2017-11-12 08:00] VITALS: BP 132/63
--- NOTE | 2017-11-12 08:24 | General Progress Note ---
Assessment/Plan Problem List: (1) Pancytopenia ICD Codes: D61.818 - Other pancytopenia SNOMED: 291952622 (2) Hyperkalemia ICD Codes: E87.5 - Hyperkalemia SNOMED: 03221319 (3) Renal failure ICD Codes: N19 - Unspecified kidney failure SNOMED: 27005304 (4) Gastroenteritis ICD Codes: K52.9 - Noninfective gastroenteritis and colitis, unspecified SNOMED: 06365937 (5) Altered mental status ICD Codes: R41.82 - Altered mental status, unspecified SNOMED: 641239197 (6) COPD (chronic obstructive pulmonary disease) ICD Codes: J44.9 - Chronic obstructive pulmonary disease, unspecified SNOMED: 58676945 (7) HTN (hypertension) ICD Codes: I10 - Essential (primary) hypertension SNOMED: 58110408 (8) Renal insufficiency ICD Codes: N28.9 - Disorder of kidney and ureter, unspecified SNOMED: 098479713, 649226252 (9) Acute encephalopathy ICD Codes: G93.40 - Encephalopathy, unspecified SNOMED: 53088832, 071896669 Status: stable, progressing Assessment/Plan ot pt diet abx heme eval gi f/u cbc bmp am dc plan Subjective Constitutional: Reports: weakness Allergies: Coded Allergies: LEVOFLOXACIN (Unverified Allergy, Unknown, 10/28/17) MEROPENEM (Unverified Allergy, Unknown, 10/28/17) PENICILLINS (Verified Allergy, Unknown, 03/17/16) All Systems: reviewed and negative except above Subjective o2nc sleep Objective Last 24 Hour Vital Signs Date Time Temp Pulse Resp B/P (MAP) Pulse Ox O2 Delivery O2 Flow Rate FiO2 11/12/17 04:00 97.3 67 16 121/58 (79) 97 97.3 11/12/17 00:00 97.9 76 18 132/58 (82) 96 97.9 11/11/17 21:00 Nasal Cannula 2.0 11/11/17 20:36 78 150/77 11/11/17 20:00 96.5 74 18 150/77 (101) 98 96.5 11/11/17 19:46 Nasal Cannula 2.0 28 11/11/17 19:46 98 Nasal Cannula 2.0 28 11/11/17 16:01 96.7 71 20 138/68 (91) 100 96.7 11/11/17 12:00 97.5 68 18 118/70 (86) 100 97.5 11/11/17 09:30 80 132/60 11/11/17 09:00 Nasal Cannula 2.0 Intake and Output 11/11/17 11/12/17 19:00 07:00 Intake Total 1377.502 ml 725.0 ml Output Total 1000 ml Balance 1377.502 ml -275.0 ml Intake Oral 120 ml IV Total 857.502 ml 725.0 ml Tube Feeding 400 ml Output Urine Total 1000 ml # Voids 1 # Bowel Movements 1 1 Laboratory Tests 11/11/17 18:00: Prothrombin Time 11.3, Prothromb Time International Ratio 1.1 11/12/17 05:40: White Blood Count 4.0L, Red Blood Count 2.61L, Hemoglobin 8.9L, Hematocrit 25.9L , Mean Corpuscular Volume 99, Mean Corpuscular Hemoglobin 34.2H, Mean Corpuscular Hemoglobin Concent 34.4, Red Cell Distribution Width 12.8, Platelet Count 142L, Mean Platelet Volume 6.7, Neutrophils (%) (Auto) 47.1, Lymphocytes ( %) (Auto) 38.0, Monocytes (%) (Auto) 10.9H, Eosinophils (%) (Auto) 3.2H, Basophils (%) (Auto) 0.8, Sodium Level 143, Potassium Level 3.9, Chloride Level 110H, Carbon Dioxide Level 29, Anion Gap 4L, Blood Urea Nitrogen 13, Creatinine 1.2, Estimat Glomerular Filtration Rate 45.3, Glucose Level 91, Calcium Level 8.6 Height (Feet): 5 Height (Inches): 4.00 Weight (Pounds): 210 General Appearance: lethargic EENT: normal ENT inspection Neck: normal alignment Cardiovascular: normal peripheral pulses, normal rate, regular rhythm Respiratory/Chest: chest wall non-tender, lungs clear, normal breath sounds Abdomen: normal bowel sounds, non tender, soft Extremities: normal inspection Edema: no edema noted Arm (L), no edema noted Arm (R), no edema noted Leg (L), no edema noted Leg (R), no edema noted Pedal (L), no edema noted Pedal (R), no edema noted Generalized Neurologic: motor weakness Skin: normal pigmentation, warm/dry Vance Armstrong DO Nov 12, 2017 08:24
[2017-11-12] MEDS: ARIPiprazole 10mg tab ORAL SCH (09:00)
[2017-11-12] MEDS: Metoprolol Tartrate 50mg tab ORAL SCH ×2 (09:00→20:16)
[2017-11-12] MEDS: Pantoprazole Inj IV SCH (09:04)
[2017-11-12] MEDS: Valproate Sodium INJ 1,000 MG in D5W 55 ML IV SCH ×2 (09:04→20:16)
[2017-11-12] MEDS: Heparin 5000 units/ml inj SUBQ SCH ×2 (09:07→20:17)
[2017-11-12] MEDS ORDERED: D5 1/2NS 1000ml IV ONE (10:12)
--- NOTE | 2017-11-12 10:19 | Nephrology Progress Note ---
Assessment/Plan Problem List: (1) Acute renal failure (ARF) (2) Hyperkalemia (3) Acute encephalopathy (4) COPD (chronic obstructive pulmonary disease) (5) Anemia Assessment Acute renal failure- Hyperkalemia Acute encephalopathy COPD HTN Anemia UTI Plan Adjust BP meds- increase lopressor IV hydration Adjust mind altering meds breathing treatment UTI treatment mag and phos supplement has NGT now per orders Subjective ROS Limited/Unobtainable: No Constitutional: Reports: malaise, weakness Objective Objective Last 24 Hour Vital Signs Date Time Temp Pulse Resp B/P (MAP) Pulse Ox O2 Delivery O2 Flow Rate FiO2 11/12/17 09:00 Nasal Cannula 2.0 11/12/17 09:00 64 132/63 11/12/17 08:00 98.9 64 18 132/63 (86) 99 98.9 11/12/17 04:00 97.3 67 16 121/58 (79) 97 97.3 11/12/17 00:00 97.9 76 18 132/58 (82) 96 97.9 11/11/17 21:00 Nasal Cannula 2.0 11/11/17 20:36 78 150/77 11/11/17 20:00 96.5 74 18 150/77 (101) 98 96.5 11/11/17 19:46 Nasal Cannula 2.0 28 11/11/17 19:46 98 Nasal Cannula 2.0 28 11/11/17 16:01 96.7 71 20 138/68 (91) 100 96.7 11/11/17 12:00 97.5 68 18 118/70 (86) 100 97.5 Intake and Output 11/11/17 11/12/17 19:00 07:00 Intake Total 1377.502 ml 800.0 ml Output Total 1000 ml Balance 1377.502 ml -200.0 ml Intake Oral 120 ml IV Total 857.502 ml 800.0 ml Tube Feeding 400 ml Output Urine Total 1000 ml # Voids 1 # Bowel Movements 1 1 Laboratory Tests 11/11/17 18:00: Prothrombin Time 11.3, Prothromb Time International Ratio 1.1 11/12/17 05:40: White Blood Count 4.0L, Red Blood Count 2.61L, Hemoglobin 8.9L, Hematocrit 25.9L , Mean Corpuscular Volume 99, Mean Corpuscular Hemoglobin 34.2H, Mean Corpuscular Hemoglobin Concent 34.4, Red Cell Distribution Width 12.8, Platelet Count 142L, Mean Platelet Volume 6.7, Neutrophils (%) (Auto) 47.1, Lymphocytes ( %) (Auto) 38.0, Monocytes (%) (Auto) 10.9H, Eosinophils (%) (Auto) 3.2H, Basophils (%) (Auto) 0.8, Sodium Level 143, Potassium Level 3.9, Chloride Level 110H, Carbon Dioxide Level 29, Anion Gap 4L, Blood Urea Nitrogen 13, Creatinine 1.2, Estimat Glomerular Filtration Rate 45.3, Glucose Level 91, Calcium Level 8.6 Height (Feet): 5 Height (Inches): 4.00 Weight (Pounds): 210 General Appearance: other - sedated by ativan EENT: other - NGT out ! Cardiovascular: normal rate Respiratory/Chest: decreased breath sounds Abdomen: soft Objective no change John Paul Urias MD Nov 12, 2017 10:19
[2017-11-12 12:00] VITALS: BP 130/71
--- NOTE | 2017-11-12 13:51 | General Progress Note ---
Assessment/Plan Assessment/Plan # Anemia of chronic disease - labs reviewed and noted to have elevated ferritin and low tibc, potentially 2/2 to hepatitis C --> anemia also related to rich on ckd --> workup has been reviewed and results as noted above --> no e/o hemolysis at this time --> hgb goal >7 and transfuse prn basis # Leukopenia with a wbc of 3-4.5, is very likely related to history of hepatitis C --> hepatitis shows hep C and hiv is negative --> us of the abdomen is somewhat limited exam, as described, Negative for gallstones or dilated ducts, Note nonvisualization of the left kidney and portions of the pancreas # Coagulopathy based on PTT high, potentially 2/2 to hepatitis C --> obtain INR/PT repeat, is better # Encephalopathy Resolved # Vomiting - Unclear etiology Viral enteritis, Medication, Food toxin? --> Resolved Greatly appreciate consultation! Subjective Constitutional: Denies: no symptoms, chills, diaphoresis, fever, malaise, weakness, other HEENT: Denies: no symptoms, eye pain, blurred vision, tearing, double vision, ear pain, ear discharge, nose pain, nose congestion, throat pain, throat swelling, mouth pain, mouth swelling, other Cardiovascular: Denies: no symptoms, chest pain, edema, irregular heart rate, lightheadedness, palpitations, syncope, other Respiratory: Denies: no symptoms, cough, orthopnea, shortness of breath, SOB with excertion, SOB at rest, sputum, stridor, wheezing, other Gastrointestinal/Abdominal: Denies: no symptoms, abdomen distended, abdominal pain, black stools, tarry stools, blood in stool, constipated, diarrhea, difficulty swallowing, nausea, poor appetite, poor fluid intake, rectal bleeding , vomiting, other Genitourinary: Denies: no symptoms, burning, discharge, frequency, flank pain, hematuria, incontinence, pain, urgency, other Neurologic/Psychiatric: Denies: no symptoms, anxiety, depressed, emotional problems, headache, numbness, paresthesia, pre-existing deficit, seizure, tingling, tremors, weakness, other Hematologic/Lymphatic: Denies: no symptoms, anemia, easy bleeding, easy bruising, other Allergies: Coded Allergies: LEVOFLOXACIN (Unverified Allergy, Unknown, 10/28/17) MEROPENEM (Unverified Allergy, Unknown, 10/28/17) PENICILLINS (Verified Allergy, Unknown, 03/17/16) Subjective eating minimally, has a NGT in place Objective Last 24 Hour Vital Signs Date Time Temp Pulse Resp B/P (MAP) Pulse Ox O2 Delivery O2 Flow Rate FiO2 11/12/17 09:00 Nasal Cannula 2.0 11/12/17 09:00 64 132/63 11/12/17 08:51 Nasal Cannula 2.0 28 11/12/17 08:51 97 Nasal Cannula 2.0 28 11/12/17 08:00 98.9 64 18 132/63 (86) 99 98.9 11/12/17 04:00 97.3 67 16 121/58 (79) 97 97.3 11/12/17 00:00 97.9 76 18 132/58 (82) 96 97.9 11/11/17 21:00 Nasal Cannula 2.0 11/11/17 20:36 78 150/77 11/11/17 20:00 96.5 74 18 150/77 (101) 98 96.5 11/11/17 19:46 Nasal Cannula 2.0 28 11/11/17 19:46 98 Nasal Cannula 2.0 28 11/11/17 16:01 96.7 71 20 138/68 (91) 100 96.7 Intake and Output 11/11/17 11/12/17 19:00 07:00 Intake Total 1377.502 ml 800.0 ml Output Total 1000 ml Balance 1377.502 ml -200.0 ml Intake Oral 120 ml IV Total 857.502 ml 800.0 ml Tube Feeding 400 ml Output Urine Total 1000 ml # Voids 1 # Bowel Movements 1 1 Laboratory Tests 11/11/17 18:00: Prothrombin Time 11.3, Prothromb Time International Ratio 1.1 11/12/17 05:40: White Blood Count 4.0L, Red Blood Count 2.61L, Hemoglobin 8.9L, Hematocrit 25.9L , Mean Corpuscular Volume 99, Mean Corpuscular Hemoglobin 34.2H, Mean Corpuscular Hemoglobin Concent 34.4, Red Cell Distribution Width 12.8, Platelet Count 142L, Mean Platelet Volume 6.7, Neutrophils (%) (Auto) 47.1, Lymphocytes ( %) (Auto) 38.0, Monocytes (%) (Auto) 10.9H, Eosinophils (%) (Auto) 3.2H, Basophils (%) (Auto) 0.8, Sodium Level 143, Potassium Level 3.9, Chloride Level 110H, Carbon Dioxide Level 29, Anion Gap 4L, Blood Urea Nitrogen 13, Creatinine 1.2, Estimat Glomerular Filtration Rate 45.3, Glucose Level 91, Calcium Level 8.6 Height (Feet): 5 Height (Inches): 4.00 Weight (Pounds): 210 General Appearance: lethargic EENT: TMs normal Neck: supple Cardiovascular: normal rate Respiratory/Chest: lungs clear Abdomen: no organomegaly Extremities: non-tender Edema: no edema noted Leg (L), no edema noted Leg (R) Edema: mild edema Neurologic: alert Skin: warm/dry Nilo Savage MD Nov 12, 2017 13:51
--- NOTE | 2017-11-12 14:55 | Neurology Progress Note ---
Interim History Interim History Interim History Ms. May feels sleepy today. She says she feels "sedated." Her cerebration is slow. She continues to be plegic on the left side. She continues to be cognitively impoverished. She denies any new neurologic symptoms. She has not been eating much. Review of Systems Neuro Review of Systems Benign. Objective Physical Exam Last Vital Signs Date Time Temp Pulse Resp B/P (MAP) Pulse Ox O2 Delivery O2 Flow Rate FiO2 11/12/17 12:00 98.1 71 17 130/71 (90) 92 98.1 11/12/17 09:00 Nasal Cannula 2.0 11/12/17 08:51 28 Laboratory Tests Test 11/11/17 18:00 11/12/17 05:40 Prothrombin Time 11.3 SEC (9.30-11.50) Prothromb Time International Ratio 1.1 (0.9-1.1) White Blood Count 4.0 K/UL (4.8-10.8) L Red Blood Count 2.61 M/UL (4.20-5.40) L Hemoglobin 8.9 G/DL (12.0-16.0) L Hematocrit 25.9 % (37.0-47.0) L Mean Corpuscular Volume 99 FL (80-99) Mean Corpuscular Hemoglobin 34.2 PG (27.0-31.0) H Mean Corpuscular Hemoglobin Concent 34.4 G/DL (32.0-36.0) Red Cell Distribution Width 12.8 % (11.6-14.8) Platelet Count 142 K/UL (150-450) L Mean Platelet Volume 6.7 FL (6.5-10.1) Neutrophils (%) (Auto) 47.1 % (45.0-75.0) Lymphocytes (%) (Auto) 38.0 % (20.0-45.0) Monocytes (%) (Auto) 10.9 % (1.0-10.0) H Eosinophils (%) (Auto) 3.2 % (0.0-3.0) H Basophils (%) (Auto) 0.8 % (0.0-2.0) Sodium Level 143 MMOL/L (136-145) Potassium Level 3.9 MMOL/L (3.5-5.1) Chloride Level 110 MMOL/L (98-107) H Carbon Dioxide Level 29 MMOL/L (21-32) Anion Gap 4 mmol/L (5-15) L Blood Urea Nitrogen 13 mg/dL (7-18) Creatinine 1.2 MG/DL (0.55-1.30) Estimat Glomerular Filtration Rate 45.3 mL/min (>60) Glucose Level 91 MG/DL (74-106) Calcium Level 8.6 MG/DL (8.5-10.1) Neurologic Exam Objective PHYSICAL EXAMINATION: GENERAL: The patient is a well-developed well-nourished obese lady, lying in bed, in no acute distress. HEAD: Normocephalic and atraumatic. EENT: Examination benign. NECK: No neck rigidity was observed. NEUROLOGIC EXAMINATION: MENTAL STATUS EXAMINATION: She was awake but not alert. She was oriented to self, hospital, and 2018. She did not know the name of the hospital, date or the month. She was able to recall 3/3 words immediately, but could only remember 1/3 words in 1 minute and 3 minutes even on the second trial. She knew that Trump was president, but could not remember presidents prior to Trump. Her mathematical skills were impaired. Her visuospatial function was also impaired. SPEECH: She had a moderate dysarthria. LANGUAGE: She had anomia for low and mid frequency words. CRANIAL NERVE EXAMINATION: II: She had a left visual field cut. III, IV & : The external ocular movements were full and the pupils 3 mm in diameter, equal, round, regular, and reactive sluggishly to light. V: She had normal facial sensations, and the temporales, masseters, and pterygoids functioned normally. VII: She had left seventh central facial paresis. VIII: She was able to hear well bilaterally and had no nystagmus. IX: The palate moved symmetrically on phonation. X: She had no hoarseness of voice. XI: The sternocleidomastoids and trapezii functioned normally. XII: The tongue was in the midline without any fasciculations or atrophy. MOTOR SYSTEM: The tone was significantly increased on the left side with spasticity. Examination of muscle mass revealed wasting of the left upper extremity more than the left lower extremity. In addition, she also had her left upper extremity in a flexion contracture. The examination of power was difficult to perform because of varying degrees of cooperation. She however had approximately G 0/5 power in the left upper extremity, G 4-/5 power in the left lower extremity, G 5/5 power in the right upper extremity and G 4+/5 power in the right lower extremity. SENSORY EXAMINATION: She responded appropriately to deep pain. She was unable to cooperate for the sensory modalities. REFLEXES: 2+ on the right and 2++ on the left in the biceps, triceps, brachioradialis, and knees. 0 at both ankles. The plantar response was flexor on the right and extensor on the left. COORDINATION, STANCE & GAIT: Could not be tested. Impression/Recommendations Diagnostic Impression 1. Ms. 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 She also carries a history of schizoaffective disorder of the bipolar type, chronic obstructive pulmonary disease, renal failure and hypertension. She was hospitalized for an alteration in her mental state and vomiting. She was found to have urinary tract infection and has since been treated for it. 2. She feels feels sleepy today. She says she feels "sedated." Her cerebration is slow. She continues to be plegic on the left side. She continues to be cognitively impoverished. She denies any new neurologic symptoms. She has not been eating much. 3. On neurological examination, at this time, she does demonstrate slowing of cerebration, problems with orientation, recent and remote memory, visuospatial function, higher cognitive function, and language. She also has a significant dysarthria, left visual field cut, left seventh central facial paresis, left upper extremity plegia and lower extremity paresis, right lower extremity paresis and brisk deep tendon reflexes on the left side compared to the right. The plantar response is extensor on the left and flexor on the right. She is unable to stand and walk. 4. The CT scan of the brain without contrast was reviewed and it revealed a large remote infarct in the right occipital area and temporal area in the posterior cerebral artery distribution. No definite acute pathology was noted, but the radiologist felt that there was a possibility of acute ischemia. 5. Laboratory data obtained thus far have revealed that she is significantly anemic with a hemoglobin of 8.9. Her chemistry panel reveals that her BUN and creatinine were elevated when she came in, but are now within normal range with BUN of 18 and creatinine of 1.3. Her BNP is elevated. Her albumin is low at 2.6. Her valproic acid level is low at 35. Her urinalysis reveals 2+ leukocyte esterase, 0-2 RBCs, and 10-15 WBCs per high-power field. 6. The EEG done on 11/10/17 revealed a mild encephalopathy with inability to awaken for an awake tracing. 7. The patient's history, neurological examination, laboratory data and imaging studies are most compatible with an old right brain stroke involving the posterior cerebral artery territory. I doubt that there is any new event in light of the patient giving us a history that her neurological symptoms have not changed. 8. The patient does have a multifactorial encephalopathy. The encephalopathy is most probably due to the multiple electrolyte imbalances and in addition an acute infectious process. 9. She does have a history of seizures, but says that her seizures are relatively well controlled. Her valproic acid was subtherapeutic. Her dose has since been increased. 10. She was unable to lie flat for her Brain MRI. Recommendations 1. Continue present management . 2. Would continue treatment of the patient's infectious process and correct the patient's electrolyte imbalances. In addition, her hemoglobin should be also corrected greater than 10 G. 3. Continue Depacon 1 G q.12 h - when she is able to take medicines orally reliably change to Depakote 1 G PO q 12 H. 4. Observe closely. Sana Britt M.D., M.S.P.SANA BACH Nov 12, 2017 14:55
[2017-11-12 15:29] VITALS: BP 130/71
--- NOTE | 2017-11-12 17:20 | General Progress Note ---
Assessment/Plan Assessment/Plan Assessment (1) Fatty liver, alcoholic ICD Codes: K70.0 - Alcoholic fatty liver SNOMED: 78335154 (2) Acute encephalopathy ICD Codes: G93.40 - Encephalopathy, unspecified SNOMED: 35351952, 661103658 (3) Altered mental status ICD Codes: R41.82 - Altered mental status, unspecified SNOMED: 051370691 (4) Gastroenteritis ICD Codes: K52.9 - Noninfective gastroenteritis and colitis, unspecified SNOMED: 01028155 (5) Pancytopenia ICD Codes: D61.818 - Other pancytopenia SNOMED: 475879944 (6) Vomiting ICD Codes: R11.10 - Vomiting, unspecified SNOMED: 705310672 Status: unchanged (7) Hepatitis C (+) . Assessment/Plan Head CT reviewed >> Large remote infarct centered in the right occipital lobe/ right [employer] territory. anemia work up reviewed Push po, since NGT pulled out defer GI procedures, fu neurology supportive care electrolyte correction OB stool r/o GI bleed monitor H&H, prn transfusions bowel regime ppi zofran prn fu labs Subjective Allergies: Coded Allergies: LEVOFLOXACIN (Unverified Allergy, Unknown, 10/28/17) MEROPENEM (Unverified Allergy, Unknown, 10/28/17) PENICILLINS (Verified Allergy, Unknown, 03/17/16) Subjective Feels OK no new symptoms NGT out had received sedatives earlier in the day appetite poor due to sedation Objective Last 24 Hour Vital Signs Date Time Temp Pulse Resp B/P (MAP) Pulse Ox O2 Delivery O2 Flow Rate FiO2 11/12/17 15:29 98.9 71 18 130/71 (90) 92 98.9 11/12/17 12:00 98.1 71 17 130/71 (90) 92 98.1 11/12/17 09:00 Nasal Cannula 2.0 11/12/17 09:00 64 132/63 11/12/17 08:51 Nasal Cannula 2.0 28 11/12/17 08:51 97 Nasal Cannula 2.0 28 11/12/17 08:00 98.9 64 18 132/63 (86) 99 98.9 11/12/17 04:00 97.3 67 16 121/58 (79) 97 97.3 11/12/17 00:00 97.9 76 18 132/58 (82) 96 97.9 11/11/17 21:00 Nasal Cannula 2.0 11/11/17 20:36 78 150/77 11/11/17 20:00 96.5 74 18 150/77 (101) 98 96.5 11/11/17 19:46 Nasal Cannula 2.0 28 11/11/17 19:46 98 Nasal Cannula 2.0 28 Intake and Output 11/11/17 11/12/17 19:00 07:00 Intake Total 1377.502 ml 800.0 ml Output Total 1000 ml Balance 1377.502 ml -200.0 ml Intake Oral 120 ml IV Total 857.502 ml 800.0 ml Tube Feeding 400 ml Output Urine Total 1000 ml # Voids 1 # Bowel Movements 1 1 Laboratory Tests 11/11/17 18:00: Prothrombin Time 11.3, Prothromb Time International Ratio 1.1 11/12/17 05:40: White Blood Count 4.0L, Red Blood Count 2.61L, Hemoglobin 8.9L, Hematocrit 25.9L , Mean Corpuscular Volume 99, Mean Corpuscular Hemoglobin 34.2H, Mean Corpuscular Hemoglobin Concent 34.4, Red Cell Distribution Width 12.8, Platelet Count 142L, Mean Platelet Volume 6.7, Neutrophils (%) (Auto) 47.1, Lymphocytes ( %) (Auto) 38.0, Monocytes (%) (Auto) 10.9H, Eosinophils (%) (Auto) 3.2H, Basophils (%) (Auto) 0.8, Sodium Level 143, Potassium Level 3.9, Chloride Level 110H, Carbon Dioxide Level 29, Anion Gap 4L, Blood Urea Nitrogen 13, Creatinine 1.2, Estimat Glomerular Filtration Rate 45.3, Glucose Level 91, Calcium Level 8.6 Height (Feet): 5 Height (Inches): 4.00 Weight (Pounds): 210 Objective WDWN WW NCAT supple CTA RRR abd soft no edema restrained Piyush Pradhan MD Nov 12, 2017 17:20
[2017-11-12 20:00] VITALS: BP 120/96
[2017-11-12] MEDS: Dyna-Hex 2% Top Sol 2oz TOPIC SCH (20:16)
[2017-11-12] MEDS: Tamsulosin 0.4mg cap ORAL SCH (20:17)
[2017-11-13] VITALS: BP 137/54
[2017-11-13] MEDS: D5 1/2NS 1,000 ML IV SCH ×2 (03:05→17:25)
[2017-11-13 04:00] VITALS: BP 137/68
[2017-11-13 07:23] LABS: BASOPHILS % (AUTO) 0.7 % (0.0-2.0); HEMATOCRIT 26.7 % (37.0-47.0); LYMPHOCYTES % (AUTO) 38.8 % (20.0-45.0); MEAN CORPUSCULAR VOLUME 99 FL (80-99); NEUTROPHILS % (AUTO) 46.5 % (45.0-75.0); PLATELET COUNT 134 K/UL (150-450); RED CELL DISTRIBUTION WIDTH 13.2 % (11.6-14.8); WHITE BLOOD COUNT 3.6 K/UL (4.8-10.8)
[2017-11-13 07:25] LABS: ANION GAP 5 mmol/L (5-15); BLOOD UREA NITROGEN 11 mg/dL (7-18); CALCIUM 8.4 MG/DL (8.5-10.1); CARBON DIOXIDE 28 MMOL/L (21-32); CHLORIDE 111 MMOL/L (98-107); CREATININE 1.2 MG/DL (0.55-1.30); POTASSIUM 3.9 MMOL/L (3.5-5.1); SODIUM 144 MMOL/L (136-145)
[2017-11-13 07:58] VITALS: BP 130/64
--- NOTE | 2017-11-13 08:21 | Infectious Diseases Prog Note ---
Assessment/Plan Assessment/Plan 62 yo female who presented to the ED on 11/06/17 from her [facility] with AMS and vomiting. Encephalopathy Resolved Vomiting - Unclear etiology Viral enteritis, Medication, Food toxin? Resolved Bacteriuria - Infection unlikely UCx - Strep and GNR (Low levels) 11/06 - UA neg HTN IA CAD COPD GERD CVA/TIA Psych Hx Renal Disease Plan: Stable clinically so continue to monitor off Abx Monitor CBC and Temps We will continue to follow the patient during this hospitalization. Subjective Allergies: Coded Allergies: LEVOFLOXACIN (Unverified Allergy, Unknown, 10/28/17) MEROPENEM (Unverified Allergy, Unknown, 10/28/17) PENICILLINS (Verified Allergy, Unknown, 03/17/16) Subjective Afebrile Awake and alert Objective Vital Signs Last 24 Hour Vital Signs Date Time Temp Pulse Resp B/P (MAP) Pulse Ox O2 Delivery O2 Flow Rate FiO2 11/13/17 07:58 98.1 69 18 130/64 (86) 98 98.1 11/13/17 04:00 97.1 67 18 137/68 (91) 98 97.1 11/13/17 00:00 97.2 67 18 137/54 (81) 95 97.2 11/12/17 21:00 Nasal Cannula 2.0 11/12/17 20:16 71 120/96 11/12/17 20:00 98.7 71 19 120/96 (104) 94 98.7 11/12/17 15:29 98.9 71 18 130/71 (90) 92 98.9 11/12/17 12:00 98.1 71 17 130/71 (90) 92 98.1 11/12/17 09:00 Nasal Cannula 2.0 11/12/17 09:00 64 132/63 11/12/17 08:51 Nasal Cannula 2.0 28 11/12/17 08:51 97 Nasal Cannula 2.0 28 Height (Feet): 5 Height (Inches): 4.00 Weight (Pounds): 210 Objective Gen: NAD, Laying in bed HEENT: NCAT, MMM, no scleral icterus LUNGS: CTAB, No W CARDS: RRR, S1, S2, ABD: Soft, ND, No R/G, + BS, No HSM, No Masses Ext: C/C/E, Pulses 2+ B/L (DP, Rad) NEURO: A/O x 1 Laboratory Tests Test 11/13/17 05:50 White Blood Count 3.6 K/UL (4.8-10.8) L Red Blood Count 2.70 M/UL (4.20-5.40) L Hemoglobin 9.0 G/DL (12.0-16.0) L Hematocrit 26.7 % (37.0-47.0) L Mean Corpuscular Volume 99 FL (80-99) Mean Corpuscular Hemoglobin 33.4 PG (27.0-31.0) H Mean Corpuscular Hemoglobin Concent 33.7 G/DL (32.0-36.0) Red Cell Distribution Width 13.2 % (11.6-14.8) Platelet Count 134 K/UL (150-450) L Mean Platelet Volume 6.0 FL (6.5-10.1) L Neutrophils (%) (Auto) 46.5 % (45.0-75.0) Lymphocytes (%) (Auto) 38.8 % (20.0-45.0) Monocytes (%) (Auto) 11.0 % (1.0-10.0) H Eosinophils (%) (Auto) 3.0 % (0.0-3.0) Basophils (%) (Auto) 0.7 % (0.0-2.0) Sodium Level 144 MMOL/L (136-145) Potassium Level 3.9 MMOL/L (3.5-5.1) Chloride Level 111 MMOL/L (98-107) H Carbon Dioxide Level 28 MMOL/L (21-32) Anion Gap 5 mmol/L (5-15) Blood Urea Nitrogen 11 mg/dL (7-18) Creatinine 1.2 MG/DL (0.55-1.30) Estimat Glomerular Filtration Rate 45.3 mL/min (>60) Glucose Level 89 MG/DL (74-106) Calcium Level 8.4 MG/DL (8.5-10.1) L Current Medications Medications (Trade) Dose Ordered Sig/Leroy Route PRN Reason Start Time Stop Time Status Last Admin Dose Admin Acetaminophen (Tylenol) 650 mg Q4H PRN ORAL fever 11/07/17 15:15 12/06/17 19:14 Aripiprazole (Abilify) 30 mg DAILY ORAL 11/08/17 09:00 12/07/17 08:59 11/11/17 09:30 Chlorhexidine Gluconate (Bryanna-Hex 2%) 1 applic DAILY@2000 TOPIC 11/07/17 20:00 12/06/17 19:59 11/12/17 20:16 Clonidine HCl (Catapres Tab) 0.1 mg Q4H PRN ORAL SBP over 160 11/08/17 09:00 12/08/17 08:59 11/09/17 18:03 Dextrose/Sodium Chloride 1,000 ml @ 75 mls/hr [id number] IV 11/07/17 14:45 12/06/17 19:04 11/13/17 03:05 Fluoxetine HCl (PROzac) 40 mg DAILY ORAL 11/08/17 09:00 12/07/17 08:59 11/11/17 09:30 Gabapentin (Neurontin) 100 mg TID ORAL 11/07/17 13:00 12/07/17 12:59 11/12/17 13:26 Heparin Sodium (Porcine) (Heparin 5000 units/ml) 5,000 units EVERY 12 HOURS SUBQ 11/09/17 12:30 12/06/17 12:29 11/12/17 09:07 Lorazepam (Ativan 2mg/ml 1ml) 1 mg Q4H PRN IV agitation 11/07/17 15:15 11/13/17 19:14 11/11/17 22:13 Metoclopramide HCl (Reglan) 10 mg Q6H PRN IVP severe nausea 11/07/17 15:00 12/06/17 14:59 11/12/17 18:12 Metoprolol Tartrate (Lopressor) 50 mg Q12HR ORAL 11/09/17 21:00 12/09/17 20:59 11/12/17 20:16 Nitroglycerin (Ntg) 0.4 mg Q5M X 3 DOSES PRN SL Prn Chest Pain 11/07/17 14:45 12/06/17 19:14 Pantoprazole (Protonix) 40 mg DAILY IV 11/08/17 09:00 12/07/17 08:59 11/12/17 09:04 Polyethylene Glycol (Miralax) 17 gm HSPRN PRN ORAL Constipation 11/07/17 19:15 12/06/17 19:14 Promethazine HCl (Phenergan) 25 mg Q6H PRN IM REFRACTORY SEIZURE 11/07/17 15:00 12/06/17 14:59 Tamsulosin HCl (Flomax) 0.4 mg BEDTIME ORAL 11/07/17 21:00 12/06/17 20:59 11/12/17 20:17 Temazepam (Restoril) 15 mg HSPRN PRN ORAL Insomnia 11/07/17 19:15 11/13/17 19:14 11/11/17 20:36 Valproate Sodium 1000 mg/Dextrose 65 ml @ 32.5 mls/hr EVERY 12 HOURS IV 11/10/17 21:00 12/10/17 20:59 11/12/17 20:16 Terry Wagoner MD Nov 13, 2017 08:21
[2017-11-13] MEDS: ARIPiprazole 10mg tab ORAL SCH (08:25)
[2017-11-13] MEDS: Metoprolol Tartrate 50mg tab ORAL SCH (08:25)
[2017-11-13] MEDS: Pantoprazole Inj IV SCH (08:25)
[2017-11-13] MEDS: Heparin 5000 units/ml inj SUBQ SCH (08:27)
--- NOTE | 2017-11-13 09:17 | General Progress Note ---
Assessment/Plan Assessment/Plan # Anemia of chronic disease - labs reviewed and noted to have elevated ferritin and low tibc, potentially 2/2 to hepatitis C --> anemia also related to rich on ckd --> workup has been reviewed and results as noted above --> no e/o hemolysis at this time --> hgb goal >7 and transfuse prn basis # Leukopenia with a wbc of 3-4.5, is very likely related to history of hepatitis C --> hepatitis shows hep C and hiv is negative --> us of the abdomen is somewhat limited exam, as described, Negative for gallstones or dilated ducts, Note nonvisualization of the left kidney and portions of the pancreas # Coagulopathy based on PTT high, potentially 2/2 to hepatitis C --> obtained INR/PT repeat, is better --> monitor closely if any evidence for bleeding # Encephalopathy Resolved # Vomiting - Unclear etiology Viral enteritis, Medication, Food toxin? --> Resolved Greatly appreciate consultation! Subjective Constitutional: Denies: no symptoms, chills, diaphoresis, fever, malaise, weakness, other HEENT: Denies: no symptoms, eye pain, blurred vision, tearing, double vision, ear pain, ear discharge, nose pain, nose congestion, throat pain, throat swelling, mouth pain, mouth swelling, other Cardiovascular: Denies: no symptoms, chest pain, edema, irregular heart rate, lightheadedness, palpitations, syncope, other Respiratory: Denies: no symptoms, cough, orthopnea, shortness of breath, SOB with excertion, SOB at rest, sputum, stridor, wheezing, other Gastrointestinal/Abdominal: Denies: no symptoms, abdomen distended, abdominal pain, black stools, tarry stools, blood in stool, constipated, diarrhea, difficulty swallowing, nausea, poor appetite, poor fluid intake, rectal bleeding , vomiting, other Genitourinary: Denies: no symptoms, burning, discharge, frequency, flank pain, hematuria, incontinence, pain, urgency, other Neurologic/Psychiatric: Denies: no symptoms, anxiety, depressed, emotional problems, headache, numbness, paresthesia, pre-existing deficit, seizure, tingling, tremors, weakness, other Endocrine: Denies: no symptoms, excessive sweating, flushing, intolerance to cold, intolerance to heat, increased hunger, increased thirst, increased urine, unexplained weight gain, unexplained weight loss, other Hematologic/Lymphatic: Denies: no symptoms, anemia, easy bleeding, easy bruising, other Allergies: Coded Allergies: LEVOFLOXACIN (Unverified Allergy, Unknown, 10/28/17) MEROPENEM (Unverified Allergy, Unknown, 10/28/17) PENICILLINS (Verified Allergy, Unknown, 03/17/16) Subjective eating minimally, has a NGT in place, Hep C is ++ Objective Last 24 Hour Vital Signs Date Time Temp Pulse Resp B/P (MAP) Pulse Ox O2 Delivery O2 Flow Rate FiO2 11/13/17 08:25 69 130/64 11/13/17 08:22 97 Nasal Cannula 2.0 28 11/13/17 08:22 Nasal Cannula 2.0 28 11/13/17 07:58 98.1 69 18 130/64 (86) 98 98.1 11/13/17 04:00 97.1 67 18 137/68 (91) 98 97.1 11/13/17 00:00 97.2 67 18 137/54 (81) 95 97.2 11/12/17 21:00 Nasal Cannula 2.0 11/12/17 20:16 71 120/96 11/12/17 20:00 98.7 71 19 120/96 (104) 94 98.7 11/12/17 15:29 98.9 71 18 130/71 (90) 92 98.9 11/12/17 12:00 98.1 71 17 130/71 (90) 92 98.1 Intake and Output 11/12/17 11/13/17 19:00 07:00 Intake Total 1115.0 ml 800.0 ml Balance 1115.0 ml 800.0 ml Intake Oral 100 ml 60 ml IV Total 665.0 ml 740.0 ml Other 350 ml Laboratory Tests 11/13/17 05:50: White Blood Count 3.6L, Red Blood Count 2.70L, Hemoglobin 9.0L, Hematocrit 26.7L , Mean Corpuscular Volume 99, Mean Corpuscular Hemoglobin 33.4H, Mean Corpuscular Hemoglobin Concent 33.7, Red Cell Distribution Width 13.2, Platelet Count 134L, Mean Platelet Volume 6.0L, Neutrophils (%) (Auto) 46.5, Lymphocytes (%) (Auto) 38.8, Monocytes (%) (Auto) 11.0H, Eosinophils (%) (Auto) 3.0, Basophils (%) (Auto) 0.7, Sodium Level 144, Potassium Level 3.9, Chloride Level 111H, Carbon Dioxide Level 28, Anion Gap 5, Blood Urea Nitrogen 11, Creatinine 1.2, Estimat Glomerular Filtration Rate 45.3, Glucose Level 89, Calcium Level 8.4L Height (Feet): 5 Height (Inches): 4.00 Weight (Pounds): 210 General Appearance: no apparent distress EENT: normal ENT inspection Neck: supple Cardiovascular: normal rate Respiratory/Chest: normal breath sounds Abdomen: non tender Extremities: non-tender Edema: no edema noted Leg (L), no edema noted Leg (R) Edema: mild edema Neurologic: alert Skin: warm/dry Nilo Savage MD Nov 13, 2017 09:17
[2017-11-13] MEDS: Valproate Sodium INJ 1,000 MG in D5W 55 ML IV SCH (09:42)
--- NOTE | 2017-11-13 11:20 | GI Progress Note ---
Assessment/Plan Problems: (1) Fatty liver, alcoholic ICD Codes: K70.0 - Alcoholic fatty liver SNOMED: 48222042 (2) Acute encephalopathy ICD Codes: G93.40 - Encephalopathy, unspecified SNOMED: 14672340, 014404447 (3) Altered mental status ICD Codes: R41.82 - Altered mental status, unspecified SNOMED: 411941775 (4) Gastroenteritis ICD Codes: K52.9 - Noninfective gastroenteritis and colitis, unspecified SNOMED: 50436615 (5) Pancytopenia ICD Codes: D61.818 - Other pancytopenia SNOMED: 892383910 (6) Vomiting ICD Codes: R11.10 - Vomiting, unspecified SNOMED: 274458758 Status: stable Status Narrative Discussed with Dr. Bassett. 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 pt more awake and alert >> adv diet, push PO supportive care electrolyte correction OB stool r/o GI bleed monitor H&H, prn transfusions bowel regime ppi zofran prn fu labs dc planning The patient was seen and examined at bedside and all new and available data was reviewed in the patients chart. I agree with the above findings, impression and plan. (Patient seen earlier today. Signature stamp does not reflect patient encounter time.). - Rashid Bassett MD Subjective Subjective limited Objective Last 24 Hour Vital Signs Date Time Temp Pulse Resp B/P (MAP) Pulse Ox O2 Delivery O2 Flow Rate FiO2 11/13/17 09:00 Nasal Cannula 2.0 11/13/17 08:25 69 130/64 11/13/17 08:22 97 Nasal Cannula 2.0 28 11/13/17 08:22 Nasal Cannula 2.0 28 11/13/17 07:58 98.1 69 18 130/64 (86) 98 98.1 11/13/17 04:00 97.1 67 18 137/68 (91) 98 97.1 11/13/17 00:00 97.2 67 18 137/54 (81) 95 97.2 11/12/17 21:00 Nasal Cannula 2.0 11/12/17 20:16 71 120/96 11/12/17 20:00 98.7 71 19 120/96 (104) 94 98.7 11/12/17 15:29 98.9 71 18 130/71 (90) 92 98.9 11/12/17 12:00 98.1 71 17 130/71 (90) 92 98.1 Intake and Output 11/12/17 11/13/17 19:00 07:00 Intake Total 1115.0 ml 800.0 ml Balance 1115.0 ml 800.0 ml Intake Oral 100 ml 60 ml IV Total 665.0 ml 740.0 ml Other 350 ml Laboratory Tests Test 11/13/17 05:50 White Blood Count 3.6 K/UL (4.8-10.8) L Red Blood Count 2.70 M/UL (4.20-5.40) L Hemoglobin 9.0 G/DL (12.0-16.0) L Hematocrit 26.7 % (37.0-47.0) L Mean Corpuscular Volume 99 FL (80-99) Mean Corpuscular Hemoglobin 33.4 PG (27.0-31.0) H Mean Corpuscular Hemoglobin Concent 33.7 G/DL (32.0-36.0) Red Cell Distribution Width 13.2 % (11.6-14.8) Platelet Count 134 K/UL (150-450) L Mean Platelet Volume 6.0 FL (6.5-10.1) L Neutrophils (%) (Auto) 46.5 % (45.0-75.0) Lymphocytes (%) (Auto) 38.8 % (20.0-45.0) Monocytes (%) (Auto) 11.0 % (1.0-10.0) H Eosinophils (%) (Auto) 3.0 % (0.0-3.0) Basophils (%) (Auto) 0.7 % (0.0-2.0) Sodium Level 144 MMOL/L (136-145) Potassium Level 3.9 MMOL/L (3.5-5.1) Chloride Level 111 MMOL/L (98-107) H Carbon Dioxide Level 28 MMOL/L (21-32) Anion Gap 5 mmol/L (5-15) Blood Urea Nitrogen 11 mg/dL (7-18) Creatinine 1.2 MG/DL (0.55-1.30) Estimat Glomerular Filtration Rate 45.3 mL/min (>60) Glucose Level 89 MG/DL (74-106) Calcium Level 8.4 MG/DL (8.5-10.1) L Height (Feet): 5 Height (Inches): 4.00 Weight (Pounds): 210 General Appearance: alert, obese Cardiovascular: normal rate Respiratory/Chest: normal breath sounds, no respiratory distress Abdominal Exam: normal bowel sounds, non tender, soft Extremities: non-tender, other - s/p left sided weakness Hector Combs NP Nov 13, 2017 11:20
[2017-11-13 11:59] VITALS: BP 150/64
--- NOTE | 2017-11-13 12:14 | Nephrology Progress Note ---
Assessment/Plan Problem List: (1) Acute renal failure (ARF) (2) Hyperkalemia (3) Acute encephalopathy (4) COPD (chronic obstructive pulmonary disease) (5) Anemia Assessment Acute renal failure- Hyperkalemia Acute encephalopathy COPD HTN Anemia UTI Plan Adjust BP meds- increase lopressor IV hydration Adjust mind altering meds breathing treatment UTI treatment mag and phos supplement pulled out NGT per orders Subjective ROS Limited/Unobtainable: No Constitutional: Reports: malaise Objective Objective Last 24 Hour Vital Signs Date Time Temp Pulse Resp B/P (MAP) Pulse Ox O2 Delivery O2 Flow Rate FiO2 11/13/17 11:59 98.4 71 17 150/64 (92) 99 98.4 11/13/17 09:00 Nasal Cannula 2.0 11/13/17 08:25 69 130/64 11/13/17 08:22 97 Nasal Cannula 2.0 28 11/13/17 08:22 Nasal Cannula 2.0 28 11/13/17 07:58 98.1 69 18 130/64 (86) 98 98.1 11/13/17 04:00 97.1 67 18 137/68 (91) 98 97.1 11/13/17 00:00 97.2 67 18 137/54 (81) 95 97.2 11/12/17 21:00 Nasal Cannula 2.0 11/12/17 20:16 71 120/96 11/12/17 20:00 98.7 71 19 120/96 (104) 94 98.7 11/12/17 15:29 98.9 71 18 130/71 (90) 92 98.9 Intake and Output 11/12/17 11/13/17 19:00 07:00 Intake Total 1115.0 ml 800.0 ml Balance 1115.0 ml 800.0 ml Intake Oral 100 ml 60 ml IV Total 665.0 ml 740.0 ml Other 350 ml Laboratory Tests 11/13/17 05:50: White Blood Count 3.6L, Red Blood Count 2.70L, Hemoglobin 9.0L, Hematocrit 26.7L , Mean Corpuscular Volume 99, Mean Corpuscular Hemoglobin 33.4H, Mean Corpuscular Hemoglobin Concent 33.7, Red Cell Distribution Width 13.2, Platelet Count 134L, Mean Platelet Volume 6.0L, Neutrophils (%) (Auto) 46.5, Lymphocytes (%) (Auto) 38.8, Monocytes (%) (Auto) 11.0H, Eosinophils (%) (Auto) 3.0, Basophils (%) (Auto) 0.7, Sodium Level 144, Potassium Level 3.9, Chloride Level 111H, Carbon Dioxide Level 28, Anion Gap 5, Blood Urea Nitrogen 11, Creatinine 1.2, Estimat Glomerular Filtration Rate 45.3, Glucose Level 89, Calcium Level 8.4L Height (Feet): 5 Height (Inches): 4.00 Weight (Pounds): 210 General Appearance: no apparent distress Cardiovascular: normal rate Respiratory/Chest: decreased breath sounds Abdomen: soft Objective no change John Paul Urias MD Nov 13, 2017 12:14
--- NOTE | 2017-11-13 12:36 | Pulmonology Progress Note ---
Assessment/Plan Problems: (1) Acute encephalopathy (2) Renal failure (3) Hyperkalemia (4) COPD (chronic obstructive pulmonary disease) (5) HTN (hypertension) Assessment/Plan eating well, more awake neuro evaluation off abx check electrolytes monitor BP respiratory treatment check electrolytes dc planning Subjective ROS Limited/Unobtainable: No Constitutional: Reports: no symptoms HEENT: Repors: no symptoms Respiratory: Reports: no symptoms Allergies: Coded Allergies: LEVOFLOXACIN (Unverified Allergy, Unknown, 10/28/17) MEROPENEM (Unverified Allergy, Unknown, 10/28/17) PENICILLINS (Verified Allergy, Unknown, 03/17/16) Objective Last 24 Hour Vital Signs Date Time Temp Pulse Resp B/P (MAP) Pulse Ox O2 Delivery O2 Flow Rate FiO2 11/13/17 11:59 98.4 71 17 150/64 (92) 99 98.4 11/13/17 09:00 Nasal Cannula 2.0 11/13/17 08:25 69 130/64 11/13/17 08:22 97 Nasal Cannula 2.0 28 11/13/17 08:22 Nasal Cannula 2.0 28 11/13/17 07:58 98.1 69 18 130/64 (86) 98 98.1 11/13/17 04:00 97.1 67 18 137/68 (91) 98 97.1 11/13/17 00:00 97.2 67 18 137/54 (81) 95 97.2 11/12/17 21:00 Nasal Cannula 2.0 11/12/17 20:16 71 120/96 11/12/17 20:00 98.7 71 19 120/96 (104) 94 98.7 11/12/17 15:29 98.9 71 18 130/71 (90) 92 98.9 Intake and Output 11/12/17 11/13/17 19:00 07:00 Intake Total 1115.0 ml 800.0 ml Balance 1115.0 ml 800.0 ml Intake Oral 100 ml 60 ml IV Total 665.0 ml 740.0 ml Other 350 ml General Appearance: WD/WN Respiratory/Chest: chest wall non-tender, lungs clear Breasts: no masses Cardiovascular: normal peripheral pulses Abdomen: normal bowel sounds Skin: no rash Laboratory Tests 11/13/17 05:50: White Blood Count 3.6L, Red Blood Count 2.70L, Hemoglobin 9.0L, Hematocrit 26.7L , Mean Corpuscular Volume 99, Mean Corpuscular Hemoglobin 33.4H, Mean Corpuscular Hemoglobin Concent 33.7, Red Cell Distribution Width 13.2, Platelet Count 134L, Mean Platelet Volume 6.0L, Neutrophils (%) (Auto) 46.5, Lymphocytes (%) (Auto) 38.8, Monocytes (%) (Auto) 11.0H, Eosinophils (%) (Auto) 3.0, Basophils (%) (Auto) 0.7, Sodium Level 144, Potassium Level 3.9, Chloride Level 111H, Carbon Dioxide Level 28, Anion Gap 5, Blood Urea Nitrogen 11, Creatinine 1.2, Estimat Glomerular Filtration Rate 45.3, Glucose Level 89, Calcium Level 8.4L Current Medications Medications (Trade) Dose Ordered Sig/Leroy Route PRN Reason Start Time Stop Time Status Last Admin Dose Admin Acetaminophen (Tylenol) 650 mg Q4H PRN ORAL fever 11/07/17 15:15 12/06/17 19:14 Aripiprazole (Abilify) 30 mg DAILY ORAL 11/08/17 09:00 12/07/17 08:59 11/13/17 08:25 Chlorhexidine Gluconate (Bryanna-Hex 2%) 1 applic DAILY@1999 TOPIC 11/07/17 20:00 12/06/17 19:59 11/12/17 20:16 Clonidine HCl (Catapres Tab) 0.1 mg Q4H PRN ORAL SBP over 160 11/08/17 09:00 12/08/17 08:59 11/09/17 18:03 Dextrose/Sodium Chloride 1,000 ml @ 75 mls/hr [id number] IV 11/07/17 14:45 12/06/17 19:04 11/13/17 03:05 Fluoxetine HCl (PROzac) 40 mg DAILY ORAL 11/08/17 09:00 12/07/17 08:59 11/13/17 08:25 Gabapentin (Neurontin) 100 mg TID ORAL 11/07/17 13:00 12/07/17 12:59 11/13/17 08:25 Heparin Sodium (Porcine) (Heparin 5000 units/ml) 5,000 units EVERY 12 HOURS SUBQ 11/09/17 12:30 12/06/17 12:29 11/13/17 08:27 Lorazepam (Ativan 2mg/ml 1ml) 1 mg Q4H PRN IV agitation 11/07/17 15:15 11/13/17 19:14 11/11/17 22:13 Metoclopramide HCl (Reglan) 10 mg Q6H PRN IVP severe nausea 11/07/17 15:00 12/06/17 14:59 11/12/17 18:12 Metoprolol Tartrate (Lopressor) 50 mg Q12HR ORAL 11/09/17 21:00 12/09/17 20:59 11/13/17 08:25 Nitroglycerin (Ntg) 0.4 mg Q5M X 3 DOSES PRN SL Prn Chest Pain 11/07/17 14:45 12/06/17 19:14 Pantoprazole (Protonix) 40 mg DAILY IV 11/08/17 09:00 12/07/17 08:59 11/13/17 08:25 Polyethylene Glycol (Miralax) 17 gm HSPRN PRN ORAL Constipation 11/07/17 19:15 12/06/17 19:14 Promethazine HCl (Phenergan) 25 mg Q6H PRN IM REFRACTORY SEIZURE 11/07/17 15:00 12/06/17 14:59 Tamsulosin HCl (Flomax) 0.4 mg BEDTIME ORAL 11/07/17 21:00 12/06/17 20:59 11/12/17 20:17 Temazepam (Restoril) 15 mg HSPRN PRN ORAL Insomnia 11/07/17 19:15 11/13/17 19:14 11/11/17 20:36 Valproate Sodium 1000 mg/Dextrose 65 ml @ 32.5 mls/hr EVERY 12 HOURS IV 11/10/17 21:00 12/10/17 20:59 11/13/17 09:42 James Wing MD Nov 13, 2017 12:36
--- NOTE | 2017-11-13 13:10 | General Progress Note ---
Assessment/Plan Problem List: (1) Pancytopenia ICD Codes: D61.818 - Other pancytopenia SNOMED: 341016656 (2) Hyperkalemia ICD Codes: E87.5 - Hyperkalemia SNOMED: 84933572 (3) Renal failure ICD Codes: N19 - Unspecified kidney failure SNOMED: 59123767 (4) Gastroenteritis ICD Codes: K52.9 - Noninfective gastroenteritis and colitis, unspecified SNOMED: 89299988 (5) Altered mental status ICD Codes: R41.82 - Altered mental status, unspecified SNOMED: 704936633 (6) COPD (chronic obstructive pulmonary disease) ICD Codes: J44.9 - Chronic obstructive pulmonary disease, unspecified SNOMED: 98265868 (7) HTN (hypertension) ICD Codes: I10 - Essential (primary) hypertension SNOMED: 97591341 (8) Renal insufficiency ICD Codes: N28.9 - Disorder of kidney and ureter, unspecified SNOMED: 507919592, 340730274 (9) Acute encephalopathy ICD Codes: G93.40 - Encephalopathy, unspecified SNOMED: 76419018, 079931058 Status: stable, progressing Assessment/Plan ot pt diet abx heme eval gi f/u cbc bmp am dc if clear Subjective Constitutional: Reports: weakness Allergies: Coded Allergies: LEVOFLOXACIN (Unverified Allergy, Unknown, 10/28/17) MEROPENEM (Unverified Allergy, Unknown, 10/28/17) PENICILLINS (Verified Allergy, Unknown, 03/17/16) All Systems: reviewed and negative except above Subjective o2nc calm Objective Last 24 Hour Vital Signs Date Time Temp Pulse Resp B/P (MAP) Pulse Ox O2 Delivery O2 Flow Rate FiO2 11/13/17 11:59 98.4 71 17 150/64 (92) 99 98.4 11/13/17 09:00 Nasal Cannula 2.0 11/13/17 08:25 69 130/64 11/13/17 08:22 97 Nasal Cannula 2.0 28 11/13/17 08:22 Nasal Cannula 2.0 28 11/13/17 07:58 98.1 69 18 130/64 (86) 98 98.1 11/13/17 04:00 97.1 67 18 137/68 (91) 98 97.1 11/13/17 00:00 97.2 67 18 137/54 (81) 95 97.2 11/12/17 21:00 Nasal Cannula 2.0 11/12/17 20:16 71 120/96 11/12/17 20:00 98.7 71 19 120/96 (104) 94 98.7 11/12/17 15:29 98.9 71 18 130/71 (90) 92 98.9 Intake and Output 11/12/17 11/13/17 19:00 07:00 Intake Total 1115.0 ml 800.0 ml Balance 1115.0 ml 800.0 ml Intake Oral 100 ml 60 ml IV Total 665.0 ml 740.0 ml Other 350 ml Laboratory Tests 11/13/17 05:50: White Blood Count 3.6L, Red Blood Count 2.70L, Hemoglobin 9.0L, Hematocrit 26.7L , Mean Corpuscular Volume 99, Mean Corpuscular Hemoglobin 33.4H, Mean Corpuscular Hemoglobin Concent 33.7, Red Cell Distribution Width 13.2, Platelet Count 134L, Mean Platelet Volume 6.0L, Neutrophils (%) (Auto) 46.5, Lymphocytes (%) (Auto) 38.8, Monocytes (%) (Auto) 11.0H, Eosinophils (%) (Auto) 3.0, Basophils (%) (Auto) 0.7, Sodium Level 144, Potassium Level 3.9, Chloride Level 111H, Carbon Dioxide Level 28, Anion Gap 5, Blood Urea Nitrogen 11, Creatinine 1.2, Estimat Glomerular Filtration Rate 45.3, Glucose Level 89, Calcium Level 8.4L Height (Feet): 5 Height (Inches): 4.00 Weight (Pounds): 210 General Appearance: lethargic, confused EENT: normal ENT inspection Neck: normal alignment Cardiovascular: normal peripheral pulses, normal rate, regular rhythm Respiratory/Chest: chest wall non-tender, lungs clear, normal breath sounds Abdomen: normal bowel sounds, non tender, soft Extremities: normal inspection Edema: no edema noted Arm (L), no edema noted Arm (R), no edema noted Leg (L), no edema noted Leg (R), no edema noted Pedal (L), no edema noted Pedal (R), no edema noted Generalized Neurologic: motor weakness Skin: normal pigmentation, warm/dry Vance Armstrong DO Nov 13, 2017 13:09
[2017-11-13] MEDS ORDERED: VALPROATE500 MG/5 M PO (13:39)
[2017-11-13] MEDS ORDERED: METOPROLOL TART50 MG ORAL (13:40)
[2017-11-13] MEDS ORDERED: CATAPRES0.1 MG ORAL (13:43)
[2017-11-13] MEDS ORDERED: PROTONIX40 MG ORAL (13:43)
[2017-11-13] MEDS ORDERED: MIRALAX17 G2 ORAL (13:44)
[2017-11-13] MEDS ORDERED: RESTORIL15 MG ORAL (13:44)
[2017-11-13] MEDS ORDERED: ACETAMINOPHEN120 MG PO (13:44)
[2017-11-13] MEDS ORDERED: PHENERGAN25 M1 IM (13:45)
[2017-11-13 16:00] VITALS: BP 162/86
[2017-11-13 17:37] VITALS: BP 162/86
--- NOTE | 2017-11-15 10:46 | Discharge Summary ---
Discharge Summary Discharge Summary _ DATE OF ADMISSION: 11/06/2017 DATE OF DISCHARGE: 11/13/2017 REASON FOR ADMISSION: 62 years old female with past medical history of renal failure, hypertension, COPD, CVA with right-sided hemiplegia, GERD, history of [place], psychiatric history presented from the longterm facility for either mental status and episodes of vomiting. Vital signs were stable. Laboratory workup revealed no leukocytosis, stable hemoglobin and hematocrit. Troponin negative. ECG revealed normal sinus rhythm, no acute ischemic changes. Peaked T wave noted Potassium 7.2. BUN 63, creatinine 3.1. Stable LFT and lipase. Chest x-ray revealed cardiomegaly with pulmonary vascular congestion/mild interstitial edema. CT of the head revealed no evidence of acute intracranial hemorrhage, mass effect or midline shift. 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 Patient admitted with diagnoses of altered mental status, gastroenteritis, renal failure, hyperkalemia CONSULTANTS: neurologist Dr. Gage pulmonary Dr. Wing ID specialist Dr. Hickman GI specialist Dr. Bassett tank refinisher Dr. Urias porcelain enamel sprayer/oncologist Dr. Savage psychiatrist Dr. Khan HOSPITAL COURSE: Patient admitted and started on IV hydration. Renal parameters and electrolytes were closely monitored. Hyperkalemia was aggressively treated. Further electrolytes imbalances corrected as needed. Nephrotoxins were avoided. Hyperkalemia and acute renal failure resolved ; prior to discharge potassium - 3.9; BUN 11 and creatinine 1.2. Neurologist closely followed. Per neurologist, encephalopathy was multifactorial due to acute renal failure ,multiply electrolytes abnormalities and probable infectious process. Patient initially kept nothing by mouth. GI consult closely followed. Patient was unable to participate in swallow evaluation. NG tube was inserted for nutritional support. Abdominal ultrasound revealed no gallstones, no dilated ducts. LFT and lipase remained stable. As acute renal failure and electrolyte imbalances resolved , patient became more awake and oriented. NG tube was discontinued, and patient started on diet , which was advanced as tolerated. Supportive care provided. Antiemetics provide as needed. Per GI , patient likely had episode of gastroenteritis. Stool for occult blood was negative. CEA was within normal range. GI specialist defer GI procedures for now. Hepatitis panel revealed evidence of hepatitis C disease. GI prophylaxis provided. Bowel regimen instituted. Scientific Artist closely follow. Anemia workup was consistent with anemia of chronic disease; normal iron stores ,high ferritin and low TIBC. Hemoglobin and hematocrit were closely monitored with goal to keep hemoglobin above 7. No need for transfusion at this time. No evidence of hemolysis, Leukopenia with the range of 3.5 -3.8 was likely related to hepatitis C infection. HIV test was negative. Infectious disease specialist closely followed. Blood cultures were negative. Urine culture revealed Escherichia coli ESBL and enterococcus with low colony count, unlikely infection as per ID specialist. ID specialist recommended to keep patient off antibiotics. Vomiting was probably due to viral enteritis or acute renal failure, and resolved, as patient clinically improved. DVT prophylaxis provided. Blood pressure was managed with beta blockers. Dose was uptitrated to keep blood pressure under control. Blood pressure stabilized. Psychiatrist closely followed. Psychiatric medication regimen optimized. Patient was working with physical and occupational therapists. Patient clinically improved and was stable for discharge to longterm facility for continuation of care. FINAL DIAGNOSES: Acute encephalopathy, resolved Acute renal failure, resolved Hyperkalemia, resolved Vomiting, likely viral gastroenteritis, resolved COPD Hypertension Anemia of chronic disease Leukopenia, likely secondary to hepatitis C infection History of CVA Coronary artery disease with history of [place] Schizoaffective bipolar disorder DISCHARGE MEDICATIONS: See Medication Reconciliation list. DISCHARGE INSTRUCTIONS: Patient was discharged to the longterm facility. Follow up with medical doctor at the facility. I have been assigned to dictate discharge summary for this account. I was not involved in the patient's management. Madie Irvin NP Nov 15, 2017 10:46
== END 2017-11-13 19:40 | DRG 469 ==
LOC: EDBD 12:40 → EMR 14:11 → EDBEDREQ 15:44 → 2E 16:55 → EDBEDREQ 17:58 → 2E 20:46 → 4E 11-07 14:39
PROC: 05H433Z Insertion of Infusion Device into Left Innominate Vein, Percutaneous Approach (ICD-10-PCS; principal; 2017-11-06)
DX: N17.9 Acute kidney failure, unspecified (principal); G93.40 Encephalopathy, unspecified; D61.818 Other pancytopenia; K70.0 Alcoholic fatty liver; E87.5 Hyperkalemia; F25.0 Schizoaffective disorder, bipolar type; I69.351 Hemiplegia and hemiparesis following cerebral infarction affecting right dominant side; A08.4 Viral intestinal infection, unspecified; B19.20 Unspecified viral hepatitis C without hepatic coma; I10 Essential (primary) hypertension; Z88.1 Allergy status to other antibiotic agents; Z88.0 Allergy status to penicillin; Z88.8 Allergy status to other drugs, medicaments and biological substances; J44.9 Chronic obstructive pulmonary disease, unspecified; I25.2 Old myocardial infarction; I25.10 Atherosclerotic heart disease of native coronary artery without angina pectoris; K21.9 Gastro-esophageal reflux disease without esophagitis; F11.11 Opioid abuse, in remission; D63.8 Anemia in other chronic diseases classified elsewhere; G40.909 Epilepsy, unspecified, not intractable, without status epilepticus
CPT/HCPCS: 36415; 36569; 70450; 71045; 74018; 76700; 76937; 80048; 80053; 80061; 80164; 81001; 81003; 82150; 82270; 82378; 82550; 82553; 82607; 82728; 82746; 82977; 83036; 83540; 83550; 83605; 83690; 83735; 83880; 84100; 84133; 84300; 84443; 84484; 84550; 85025; 85610; 85730; 86140; 86703; 86705; 86709; 86803; 87040; 87081; 87086; 87181; 87340; 89050; 93005; 94760; 95819; 96365; 96375; 97803; 99285; J2405; J2765